=== PATIENT | female | born 1970 | race Caucasian/White ===

== ENCOUNTER 2017-09-11 08:33 | Observation (INO) | payer MEDICAID ==
[2017-09-11] MEDS ORDERED: NITROGLYCERIN OINT 1 INCH/GM PACKET TOPICAL STA (09:08)
[2017-09-11] MEDS ORDERED: ASPIRIN 81 MG PO STA (09:08)
--- NOTE | 2017-09-11 09:24 | ED ---
General Adult HPI - General Chief complaint: Chest Pain Stated complaint: chest pain Time Seen by Provider: 09/11/17 08:41 Source: patient, RN notes reviewed Mode of arrival: wheelchair Limitations: no limitations - History of Present Illness Initial comments: Patient is a pleasant 46-year-old female presenting to the emergency department with chest discomfort. Patient had an onset around 3 AM that resolved with some Tums. Patient had return of symptoms this morning that were somewhat worse and resolved with nitroglycerin. Patient is near symptom-free at this time. Discomfort is described as pressure with some radiation towards the left arm. Patient earlier had some associated sweating and dyspnea. Second event was associated with some nausea. No leg pain or leg swelling. No cough or fever. - Related Data Home Medications Medication Instructions Recorded Confirmed LORazepam [Ativan] 1 mg PO DAILY PRN 06/08/14 09/11/17 Albuterol Inhaler [Ventolin Hfa 1 - 2 puff INHALATION RT-Q6H PRN 12/26/15 Inhaler] Nicotine Polacrilex [Quit 2] 2 mg PO Q4H PRN 01/25/16 09/11/17 Calcium Carbonate [Tums] 500 - 1,000 mg PO TID PRN 09/11/17 09/11/17 Nitroglycerin Sl Tabs [Nitrostat] 0.4 mg SUBLINGUAL Q5M PRN 09/11/17 09/11/17 Allergies Allergy/AdvReac Type Severity Reaction Status Date / Time oseltamivir phosphate Allergy Rash/Hives Verified 09/11/17 09:50 [From Tamiflu] peanut Allergy Rash/Hives Verified 09/11/17 09:50 Sulfa (Sulfonamide Allergy Rash/Hives Verified 09/11/17 09:50 Antibiotics) Review of Systems ROS Statement: Those systems with pertinent positive or pertinent negative responses have been documented in the HPI. ROS Other: All systems not noted in ROS Statement are negative. Constitutional: Denies: fever Eyes: Denies: eye pain ENT: Denies: ear pain Respiratory: Denies: cough Cardiovascular: Reports: chest pain Endocrine: Denies: fatigue Gastrointestinal: Denies: abdominal pain Genitourinary: Denies: dysuria Musculoskeletal: Denies: back pain Skin: Denies: rash Neurological: Denies: weakness Past Medical History Past Medical History: GERD/Reflux, Pneumonia Additional Past Medical History / Comment(s): scoliosis, hospitalized for pneumonia-klebsiella end of Sept., mitral valve regurgitation History of Any Multi-Drug Resistant Organisms: None Reported Past Surgical History: Adenoidectomy, Tonsillectomy, Tubal Ligation, Uterine Ablation Additional Past Surgical History / Comment(s): oral Past Anesthesia/Blood Transfusion Reactions: No Reported Reaction Past Psychological History: Anxiety Smoking Status: Former smoker Past Alcohol Use History: Occasional Past Drug Use History: None Reported - Past Family History Mother Family Medical History: Congestive Heart Failure (CHF), Diabetes Mellitus, Hypertension Father Family Medical History: Cancer, Diabetes Mellitus Additional Family Medical History / Comment(s): KIDNEY CANCER. General Exam Limitations: no limitations General appearance: alert, in no apparent distress Head exam: Present: atraumatic Eye exam: Present: normal appearance, PERRL ENT exam: Present: normal oropharynx Neck exam: Present: normal inspection Respiratory exam: Present: normal lung sounds bilaterally Cardiovascular Exam: Present: regular rate, normal rhythm Expanded Peripheral pulses: 2+: Radial (R), Radial (L), Posterior Tibialis (R), Posterior Tibialis (L) GI/Abdominal exam: Present: soft. Absent: tenderness Extremities exam: Present: normal inspection. Absent: pedal edema, calf tenderness Neurological exam: Present: alert Psychiatric exam: Present: normal affect, normal mood Skin exam: Present: normal color Course Vital Signs 09/11/17 09/11/17 08:34 10:12 Temperature 98 F Pulse Rate 110 H 85 Respiratory 17 16 Rate Blood Pressure 156/88 129/77 O2 Sat by Pulse 97 98 Oximetry EKG Findings - EKG Comments: EKG Findings:: Normal sinus rhythm 82. [place] 150. QRS 88. QT 376. QTc 439. Normal axis. Normal QRS. No acute ST change. Medical Decision Making - Medical Decision Making Patient reevaluated and resting comfortably in bed. Patient is updated on results and plan. Case was discussed in detail with Dr. Varma, who will admit for Dr. Kessler. - Lab Data Result diagrams: 09/11/17 09:20 09/11/17 09:20 Lab Results 09/11/17 09/11/17 09/11/17 Range/Units 09:20 09:20 09:20 WBC 5.1 (3.8-10.6) k/uL RBC 4.78 (3.80-5.40) m/uL Hgb 14.6 (11.4-16.0) gm/dL Hct 42.9 (34.0-46.0) % MCV 89.7 (80.0-100.0) fL MCH 30.6 (25.0-35.0) pg MCHC 34.1 (31.0-37.0) g/dL RDW 13.4 (11.5-15.5) % Plt Count 330 (150-450) k/uL Neutrophils % 67 % Lymphocytes % 22 % Monocytes % 6 % Eosinophils % 2 % Basophils % 1 % Neutrophils # 3.5 (1.3-7.7) k/uL Lymphocytes # 1.1 (1.0-4.8) k/uL Monocytes # 0.3 (0-1.0) k/uL Eosinophils # 0.1 (0-0.7) k/uL Basophils # 0.0 (0-0.2) k/uL PT (9.0-12.0) sec INR (<1.2) APTT (22.0-30.0) sec D-Dimer (<0.60) mg/L FEU Sodium 141 (137-145) mmol/L Potassium 4.2 (3.5-5.1) mmol/L Chloride 105 (98-107) mmol/L Carbon Dioxide 25 (22-30) mmol/L Anion Gap 11 mmol/L BUN 12 (7-17) mg/dL Creatinine 0.69 (0.52-1.04) mg/dL Est GFR (MDRD) Af Amer >60 (>60 ml/min/1.73 sqM) Est GFR (MDRD) Non-Af >60 (>60 ml/min/1.73 sqM) Glucose 110 H (74-99) mg/dL Calcium 9.6 (8.4-10.2) mg/dL Magnesium 2.0 (1.6-2.3) mg/dL Total Bilirubin 0.4 (0.2-1.3) mg/dL AST 20 (14-36) U/L ALT 40 (9-52) U/L Alkaline Phosphatase 58 (38-126) U/L Total Creatine Kinase 37 (30-135) U/L CK-MB (CK-2) 0.3 (0.0-2.4) ng/mL CK-MB (CK-2) Rel Index 0.8 Troponin I <0.012 (0.000-0.034) ng/mL Total Protein 6.7 (6.3-8.2) g/dL Albumin 4.2 (3.5-5.0) g/dL Amylase <30 L (30-110) U/L Lipase 59 (23-300) U/L 09/11/17 Range/Units 09:20 WBC (3.8-10.6) k/uL RBC (3.80-5.40) m/uL Hgb (11.4-16.0) gm/dL Hct (34.0-46.0) % MCV (80.0-100.0) fL MCH (25.0-35.0) pg MCHC (31.0-37.0) g/dL RDW (11.5-15.5) % Plt Count (150-450) k/uL Neutrophils % % Lymphocytes % % Monocytes % % Eosinophils % % Basophils % % Neutrophils # (1.3-7.7) k/uL Lymphocytes # (1.0-4.8) k/uL Monocytes # (0-1.0) k/uL Eosinophils # (0-0.7) k/uL Basophils # (0-0.2) k/uL PT 10.8 (9.0-12.0) sec INR 1.1 (<1.2) APTT 24.0 (22.0-30.0) sec D-Dimer 0.40 (<0.60) mg/L FEU Sodium (137-145) mmol/L Potassium (3.5-5.1) mmol/L Chloride (98-107) mmol/L Carbon Dioxide (22-30) mmol/L Anion Gap mmol/L BUN (7-17) mg/dL Creatinine (0.52-1.04) mg/dL Est GFR (MDRD) Af Amer (>60 ml/min/1.73 sqM) Est GFR (MDRD) Non-Af (>60 ml/min/1.73 sqM) Glucose (74-99) mg/dL Calcium (8.4-10.2) mg/dL Magnesium (1.6-2.3) mg/dL Total Bilirubin (0.2-1.3) mg/dL AST (14-36) U/L ALT (9-52) U/L Alkaline Phosphatase (38-126) U/L Total Creatine Kinase (30-135) U/L CK-MB (CK-2) (0.0-2.4) ng/mL CK-MB (CK-2) Rel Index Troponin I (0.000-0.034) ng/mL Total Protein (6.3-8.2) g/dL Albumin (3.5-5.0) g/dL Amylase (30-110) U/L Lipase (23-300) U/L - Radiology Data Radiology results: image reviewed (Chest x-ray shows no acute cardiopulmonary process.) Disposition Clinical Impression: Unstable angina pectoris Disposition: ADMITTED IP TO THIS HOSP Referrals: Raheem Kessler MD [Primary Care Provider] - 1-2 days Decision Time: 11:47
--- NOTE | 2017-09-11 09:54 | XR ---
EXAMINATION TYPE: XR chest 2V DATE OF EXAM: 09/11/2017 COMPARISON: 09/04/2016 HISTORY: 46-year-old female with chest pain TECHNIQUE: AP and lateral views FINDINGS: The cardiomediastinal silhouette, aorta, and pulmonary vasculature are within normal limits. Lungs an d pleural spaces are clear. IMPRESSION: No acute cardiopulmonary process.
[2017-09-11 10:10] LABS: Basophils % (A) 1 %; CHCM 35.9; Eosinophils # (A) 0.1 k/uL (0-0.7); Eosinophils % (A) 2 %; HCT 42.9 % (34.0-46.0); HGB 14.6 gm/dL (11.4-16.0); Luc # (Auto) 0.11; Luc % (Auto) 2; Lymphocytes # (A) 1.1 k/uL (1.0-4.8); Lymphocytes % (A) 22 %; MCH 30.6 pg (25.0-35.0); MCHC 34.1 g/dL (31.0-37.0); MCV 89.7 fL (80.0-100.0); Mean Platelet Volume 7.5; Monocytes # (A) 0.3 k/uL (0-1.0); Monocytes % (A) 6 %; Neutrophils # (A) 3.5 k/uL (1.3-7.7); Neutrophils % (A) 67 %; RBC 4.78 m/uL (3.80-5.40); RDW 13.4 % (11.5-15.5); WBC 5.1 k/uL (3.8-10.6); WBC (Perox) 4.87
[2017-09-11 10:20] LABS: ALT 40 U/L (9-52); AST 20 U/L (14-36); Alkaline Phosphatase 58 U/L (38-126); Amylase <30 U/L (30-110); Anion Gap 11 mmol/L; Blood Urea Nitrogen 12 mg/dL (7-17); Calcium 9.6 mg/dL (8.4-10.2); Carbon Dioxide 25 mmol/L (22-30); Chloride 105 mmol/L (98-107); Glucose 110 mg/dL (74-99); Non-African American GFR(MDRD) >60 (>60 ml/min/1.73 sqM); Potassium 4.2 mmol/L (3.5-5.1); Sodium 141 mmol/L (137-145); Total Bilirubin 0.4 mg/dL (0.2-1.3); Total Protein 6.7 g/dL (6.3-8.2)
[2017-09-11 10:22] LABS: INR 1.1 (<1.2); Prothrombin Time 10.8 sec (9.0-12.0)
[2017-09-11 10:52] LABS: Creatine Kinase 37 U/L (30-135)
[2017-09-11 11:03] LABS: Creatine Kinase MB 0.3 ng/mL (0.0-2.4); Troponin I <0.012 ng/mL (0.000-0.034)
[2017-09-11] MEDS ORDERED: HEPARIN SODIUM,PORCINE 5,000 UNIT/ML 1 ML VIAL IV ONE (11:47)
[2017-09-11] MEDS ORDERED: NITROGLYCERIN SL TABS 0.4 MG TAB SUBLINGUAL PRN (11:47)
[2017-09-11] MEDS ORDERED: HEPARIN SODIUM,PORCINE 5,000 UNIT/ML 1 ML VIAL IV PRN (11:47)
[2017-09-11] MEDS ORDERED: HEPARIN SODIUM,PORCINE/D5W PMX 25,000 UNIT in DEXTROSE/WATER 1 500ML.BAG IV SCH (12:00)
--- NOTE | 2017-09-11 13:22 | P.CRDCN ---
History of Present Illness Consult date: 09/11/17 History of present illness: This is a 46-year-old female with past medical history significant for gastroesophageal reflux disease and anxiety. She is also a former smoker. She states she quit approximately 3 years ago. He presents to the hospital with an episode of chest pain that started at 3 AM. She states this discomfort woke her up out of sleep and it felt like a tight band was wrapped around her upper chest. She was extremely diaphoretic and mildly short of breath. She took Tums drink less water and the pain subsided. When she woke up in the morning the pain came back again and this time she was unable to get it to go away. The second occurrence she also had diaphoresis and shortness of breath with some mild nausea. She states the second pain seemed more localized to the midsternal region. 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 Her cardiac risk factors include former smoker and family history. Symptoms are completely resolved. She states yesterday after eating she had what she describes as a "gallbladder attack" with pain in the right upper quadrant that radiated up into the right shoulder. She has had these intermittently in the past. EKG reveals sinus mechanism with no acute ST or T-wave abnormalities. Hemoglobin 14.6, d-dimer 0.4, potassium 4.2, magnesium 2.0, BUN 12, creatinine 0.69 and cardiac enzymes negative 1. Blood pressure 131/66 with a heart rate of 78. Review of Systems CONSTITUTIONAL: Denies fever. Denies chills. EYES: Denies blurred vision. Denies vision changes. Denies eye pain. EARS, NOSE, MOUTH & THROAT: Denies headache. Denies sore throat. Denies ear pain. CARDIOVASCULAR: Complains of chest pain with shortness of breath and palpitations. Denies orthopnea. Denies PND. RESPIRATORY: Denies cough. GASTROINTESTINAL: Denies abdominal pain. Denies diarrhea. Denies constipation. Complains of nausea. Denies vomitng. MUSCULOSKELETAL: Denies myalgias. INTEGUMENTARY: Denies pruitis. Denies rash. NEUROLOGIC: Denies numbness. Denies tingling. Denies weakness. PSYCHIATRIC: Denies anxiety. Denies depression. ENDOCRINE: Denies fatigue. Denies weight change. Denies polydipsia. Denies polyurina. GENITOURINARY: Denies burning, hematuria or urgency with micturation. HEMATOLOGIC: Denies history of anemia. Denies bleeding. Past Medical History Past Medical History: GERD/Reflux, Pneumonia Additional Past Medical History / Comment(s): scoliosis, hospitalized for pneumonia-klebsiella end of Jul., mitral valve regurgitation History of Any Multi-Drug Resistant Organisms: None Reported Past Surgical History: Adenoidectomy, Tonsillectomy, Tubal Ligation, Uterine Ablation Additional Past Surgical History / Comment(s): oral Past Anesthesia/Blood Transfusion Reactions: No Reported Reaction Past Psychological History: Anxiety Smoking Status: Former smoker Past Alcohol Use History: Occasional Past Drug Use History: None Reported - Past Family History Mother Family Medical History: Congestive Heart Failure (CHF), Diabetes Mellitus, Hypertension Father Family Medical History: Cancer, Diabetes Mellitus Additional Family Medical History / Comment(s): KIDNEY CANCER. Medications and Allergies Home Medications Medication Instructions Recorded Confirmed Type LORazepam [Ativan] 1 mg PO DAILY PRN 06/08/14 09/11/17 History Albuterol Inhaler [Ventolin Hfa 1 - 2 puff INHALATION RT-Q6H PRN 12/26/15 History Inhaler] Nicotine Polacrilex [Quit 2] 2 mg PO Q4H PRN 01/25/16 09/11/17 History Calcium Carbonate [Tums] 500 - 1,000 mg PO TID PRN 09/11/17 09/11/17 History Nitroglycerin Sl Tabs [Nitrostat] 0.4 mg SUBLINGUAL Q5M PRN 09/11/17 09/11/17 History Allergies Allergy/AdvReac Type Severity Reaction Status Date / Time oseltamivir phosphate Allergy Rash/Hives Verified 09/11/17 09:50 [From Tamiflu] peanut Allergy Rash/Hives Verified 09/11/17 09:50 Sulfa (Sulfonamide Allergy Rash/Hives Verified 09/11/17 09:50 Antibiotics) Physical Exam Vitals: Vital Signs Temp Pulse Pulse Resp BP BP Pulse Ox 09/11/17 13:12 98.6 F 78 18 131/66 97 09/11/17 12:24 97.9 F 09/11/17 12:10 63 18 121/67 98 09/11/17 10:12 85 16 129/77 98 09/11/17 09:20 72 18 133/68 99 09/11/17 08:34 98 F 110 H 17 156/88 97 Intake and Output 09/10/17 09/11/17 09/11/17 22:59 06:59 14:59 Intake Total 10 Balance 10 Intake: Amount of Fluid Infused ( 10 ml) Other: Weight 86.8 kg Patient Weight 09/12/17 06:59 Weight 86.8 kg GENERAL: This is a 46-year-old female in no apparent distress at the time of my examination. HEENT: Head is atraumatic, normocephalic. Pupils are equal, round. Sclerae anicteric. Conjunctivae are clear. Mucous membranes of the mouth are moist. Neck is supple. There is no jugular venous distention. No carotid bruit is heard. LUNGS: Clear to auscultation no wheezes, rales or rhonchi. No chest wall tenderness is noted on palpation or with deep breathing. HEART: Regular rate and rhythm without murmurs, rubs or gallops. S1 and S2 heard. ABDOMEN: Soft, nontender. Bowel sounds are heard. No organomegaly noted. EXTREMITIES: 2+ peripheral pulses with no evidence of peripheral edema and no calf tenderness noted. NEUROLOGIC: Patient is awake, alert and oriented x3. Results 09/11/17 09:20 09/11/17 09:20 Cardiac Enzymes 09/11/17 09/11/17 Range/Units 09:20 09:20 AST 20 (14-36) U/L CK-MB (CK-2) 0.3 (0.0-2.4) ng/mL Troponin I <0.012 (0.000-0.034) ng/mL Coagulation 09/11/17 Range/Units 09:20 PT 10.8 (9.0-12.0) sec APTT 24.0 (22.0-30.0) sec CBC 09/11/17 Range/Units 09:20 WBC 5.1 (3.8-10.6) k/uL RBC 4.78 (3.80-5.40) m/uL Hgb 14.6 (11.4-16.0) gm/dL Hct 42.9 (34.0-46.0) % Plt Count 330 (150-450) k/uL Comprehensive Metabolic Panel 09/11/17 Range/Units 09:20 Sodium 141 (137-145) mmol/L Potassium 4.2 (3.5-5.1) mmol/L Chloride 105 (98-107) mmol/L Carbon Dioxide 25 (22-30) mmol/L BUN 12 (7-17) mg/dL Creatinine 0.69 (0.52-1.04) mg/dL Glucose 110 H (74-99) mg/dL Calcium 9.6 (8.4-10.2) mg/dL AST 20 (14-36) U/L ALT 40 (9-52) U/L Alkaline Phosphatase 58 (38-126) U/L Total Protein 6.7 (6.3-8.2) g/dL Albumin 4.2 (3.5-5.0) g/dL Current Medications Generic Name Dose Route Start Last Admin Trade Name Freq PRN Reason Stop Dose Admin Aspirin 325 mg 09/12/17 09:00 Aspirin PO DAILY [facility] Heparin Sodium (Porcine) 0 unit 09/11/17 11:47 Heparin IV Q6HR PRN Low PTT Protocol Heparin Sodium/Dextrose 25,000 500 mls @ 20.01 mls/hr 09/11/17 12:00 12:06 unit/ IV Solution IV 11.78 units/kg/hr .Q24H HETAL 20 mls/hr Protocol Administration 11.8 UNITS/KG/HR Nitroglycerin 1 inch 09/11/17 12:00 Nitro-Bid Oint TOPICAL Q6HR [facility] Nitroglycerin 0.4 mg 09/11/17 11:47 Nitrostat SUBLINGUAL Q5M PRN Chest Pain Sodium Chloride 10 ml 09/11/17 21:00 Saline Flush IV BID [facility] Intake and Output 09/10/17 09/11/17 09/11/17 22:59 06:59 14:59 Intake Total 10 Balance 10 Intake: Amount of Fluid Infused ( 10 ml) Other: Weight 86.8 kg Patient Weight 09/12/17 06:59 Weight 86.8 kg 09/11/17 09:20 09/11/17 09:20 Assessment and Plan Plan: ASSESSMENT 1. Chest pain, atypical PLAN Continue to obtain serial cardiac enzymes and EKGs to rule out an acute coronary event. Once the second set of cardiac enzymes are back and if they're negative heparin and nitro bid can be discontinued We will obtain 2-D echo and Doppler study to assess cardiac structure and function. The above impression and plan of care have been discussed and directed by the signing physician. Teagan Borja, nurse practitioner, acting as scribe for signing physician.
[2017-09-11 14:08] VITALS: BMI 30.9
--- NOTE | 2017-09-11 15:16 | P.HPIM ---
History of Present Illness H&P Date: 09/11/17 Chief Complaint: Chest pain 46-year-old female with known history of GERD, anxiety and previous history of Klebsiella pneumonia came to ER with complaints of chest pain midsternal started around 3 AM and woke up from sleep. Patient felt squeezing chest pain and was short of breath and extremely diaphoretic. Patient took sublingual nitro at home and also took some Tums and water which seems to relieve her pain. Patient has appointment for physicals and is on her way to her PCPs office. Patient was fasting for the test. Patient felt again with chest pain along with diaphoresis and all her PCP who recommended her to go to emergency room for further evaluation. Patient denied any place history of coronary artery disease. Patient does have history of smoking quit 3 years ago. Patient does drink occasionally. Patient does have family history of heart problems in her mother after he is 65. Patient says that after eating meat loaf she was having some abdominal discomfort since yesterday. Patient denied any right upper quadrant pain. No fever no chills. No recent travel or sick contacts at home. EKG showed normal sinus rhythm with no ST-T wave changes D-dimer is not elevated. Troponin 1 negative. Blood pressure is normal.. Review of Systems Constitutional: Patient denies any fever or chills . No generalized weakness or weight loss. Abdomen: Patient denied nausea vomiting and diarrhea and abdominal pain. Cardiovascular: Patient does have chest pain . No short of breath no palpitations. No orthopnea no PND. Patient did have diaphoresis Respiratory: patient denied any cough is from production. No shortness of breath Neurologic: Patient denied any numbness or tingling headache. Musculoskeletal: Patient denies any complaints of joint swelling or deformity. Skin: Negative Psychiatric: Anxious Endocrine: No heat or cold intolerance. No recent weight gain. Genitourinary: No dysuria or hematuria. All other 14 point ROS negative except the above Past Medical History Past Medical History: GERD/Reflux, Pneumonia Additional Past Medical History / Comment(s): scoliosis, hospitalized for pneumonia-klebsiella end of Jul., mitral valve regurgitation History of Any Multi-Drug Resistant Organisms: None Reported Past Surgical History: Adenoidectomy, Tonsillectomy, Tubal Ligation, Uterine Ablation Additional Past Surgical History / Comment(s): oral Past Anesthesia/Blood Transfusion Reactions: No Reported Reaction Additional Past Anesthesia/Blood Transfusion Reaction / Comment(s): no blood transfusions Past Psychological History: Anxiety Smoking Status: Former smoker Past Alcohol Use History: Occasional Past Drug Use History: None Reported - Past Family History Mother Family Medical History: Congestive Heart Failure (CHF), Diabetes Mellitus, Hypertension Father Family Medical History: Cancer, Diabetes Mellitus Additional Family Medical History / Comment(s): KIDNEY CANCER. Medications and Allergies Home Medications Medication Instructions Recorded Confirmed Type LORazepam [Ativan] 1 mg PO DAILY PRN 06/08/14 09/11/17 History Albuterol Inhaler [Ventolin Hfa 1 - 2 puff INHALATION RT-Q6H PRN 12/26/15 History Inhaler] Nicotine Polacrilex [Quit 2] 2 mg PO Q4H PRN 01/25/16 09/11/17 History Calcium Carbonate [Tums] 500 - 1,000 mg PO TID PRN 09/11/17 09/11/17 History Nitroglycerin Sl Tabs [Nitrostat] 0.4 mg SUBLINGUAL Q5M PRN 09/11/17 09/11/17 History Allergies Allergy/AdvReac Type Severity Reaction Status Date / Time oseltamivir phosphate Allergy Rash/Hives Verified 09/11/17 09:50 [From Tamiflu] peanut Allergy Rash/Hives Verified 09/11/17 09:50 Sulfa (Sulfonamide Allergy Rash/Hives Verified 09/11/17 09:50 Antibiotics) Physical Exam Vitals: Vital Signs Temp Pulse Pulse Resp BP BP Pulse Ox 09/11/17 13:12 98.6 F 78 18 131/66 97 09/11/17 13:00 78 18 09/11/17 12:24 97.9 F 09/11/17 12:10 63 18 121/67 98 09/11/17 10:12 85 16 129/77 98 09/11/17 09:20 72 18 133/68 99 09/11/17 08:34 98 F 110 H 17 156/88 97 Intake and Output 09/10/17 09/11/17 09/11/17 22:59 06:59 14:59 Intake Total 210 Balance 210 Intake: Amount of Fluid Infused ( 10 ml) Oral 200 Other: Voiding Method Toilet Weight 86.8 kg Patient Weight 09/12/17 06:59 Weight 86.8 kg PHYSICAL EXAMINATION: Patient is lying in the bed comfortably, no acute distress, awake alert and oriented.. HEENT: Normocephalic. Neck is supple. Pupils reactive. Nostrils clear. Oral cavity is moist. Ears reveal no drainage. Neck reveals no JVD, carotid bruits, or thyromegaly. CHEST EXAMINATION: Trachea is central. Symmetrical expansion. Lung manriquez clear to auscultation and percussion. CARDIAC: Normal S1, S2 with no gallops. No murmurs ABDOMEN: Soft. Bowel sounds normal. No organomegaly. No abdominal bruits. Extremities: reveal no edema. No clubbing or cyanosis Neurologically awake, alert, oriented x3 with well-coordinated movements. No focal deficits noted Skin: No rash or skin lesions. Psychiatric: Operative. Nonsuicidal Musculoskeletal: No joint swelling or deformity. Normal range of motion. Results CBC & Chem 7: 09/11/17 09:20 09/11/17 09:20 Labs: Abnormal Lab Results - Last 24 Hours (Table) 09/11/17 Range/Units 09:20 Glucose 110 H (74-99) mg/dL Amylase <30 L (30-110) U/L Thrombosis Risk Factor Assmnt - Choose All That Apply Any of the Below Risk Factors Present?: Yes Each Factor Represents 1 point: Age 41-60 years, Obesity (BMI >25) Other Risk Factors: No Other congenital or acquired thrombophilia - If yes, enter type in comment: No Thrombosis Risk Factor Assessment Total Risk Factor Score: 2 Thrombosis Risk Factor Assessment Level: Low Risk Assessment and Plan Plan: #1 atypical chest pain. Most likely GERD related. We will rule out ACS. #2 GERD history #3 anxiety #4 history of Klebsiella pneumonia Plan: Patient be continued on telemetry monitoring. Initial EKG and troponin negative will follow up serial troponins. 2-D echo was ordered. Amylase, lipase is not elevated. Living is within normal limits. Unlikely gallbladder related. Will follow closely. Cardiology is on board. Further recommendations based on the clinical course.
[2017-09-11] MEDS: NITROGLYCERIN OINT 1 INCH/GM PACKET TOPICAL SCH ×2 (16:08→18:48)
[2017-09-11 16:21] LABS: Creatine Kinase 31 U/L (30-135)
[2017-09-11 16:32] LABS: Creatine Kinase MB <0.2 ng/mL (0.0-2.4); Troponin I <0.012 ng/mL (0.000-0.034)
[2017-09-11] MEDS ORDERED: ACETAMINOPHEN TAB 325 MG TAB PO PRN (17:05)
--- NOTE | 2017-09-11 19:39 | ECHOF ---
Referral Reason:chest pain MEASUREMENTS -------- HEIGHT: 165.1 cm WEIGHT: 84.8 kg BP: 121/67 IVSd: 1.0 cm (0.6 - 1.1) LVIDd: 4.2 cm (3.9 - 5.3) LVPWd: 1.1 cm (0.6 - 1.1) IVSs: 1.2 cm LVIDs: 3.2 cm LVPWs: 1.2 cm LA Diam: 3.2 cm (2.7 - 3.8) LAESV Index (A-L): 24.49 ml/m Ao Diam: 2.6 cm (2.0 - 3.7) AV Cusp: 1.8 cm (1.5 - 2.6) LA Diam: 3.3 cm (2.7 - 3.8) MV EXCURSION: 16.399 mm (> 18.000) MV EF SLOPE: 86 mm/s (70 - 150) EPSS: 0.4 cm MV E Liam: 0.50 m/s MV DecT: 204 ms MV A Liam: 0.62 m/s MV E/A Ratio: 0.80 RAP: 5.00 mmHg RVSP: 10.65 mmHg FINDINGS -------- Sinus rhythm. This was a technically good study. LV size, wall thickness and systolic function are normal, with an EF greater than 55%. The left ventricular size is normal. Overall left ventricular systolic function is normal with, an EF between 55 - 60 %. The right ventricle is normal in size. Normal LA size by volume 22+/-6 ml/m2. The right atrial size is normal. The aortic valve is trileaflet, and appears structurally normal. No aortic stenosis or regurgitation. Mild mitral regurgitation is present. Mild tricuspid regurgitation present. There is no evidence of pulmonary hypertension. The right ventricular systolic pressure, as measured by Doppler, is 10.65mmHg. There is no pulmonic regurgitation present. The aortic root size is normal. There is no pericardial effusion. CONCLUSIONS -------- 1. LV size, wall thickness and systolic function are normal, with an EF greater than 55%. 2. The aortic root size is normal. 3. There is no pericardial effusion. 4. The left ventricular size is normal. 5. Overall left ventricular systolic function is normal with, an EF between 55 - 60 %. 6. The aortic valve is trileaflet, and appears structurally normal. No aortic stenosis or regurgitation. 7. Mild mitral regurgitation is present. 8. Mild tricuspid regurgitation present. 9. There is no evidence of pulmonary hypertension. 10. The right ventricular systolic pressure, as measured by Doppler, is 10.65mmHg. 11. There is no pulmonic regurgitation present. DIELECTRIC TESTER: Anna Rodney RDCS
[2017-09-11] MEDS: LORazepam 1 MG TAB PO PRN (21:24)
[2017-09-11 22:07] LABS: Creatine Kinase 33 U/L (30-135)
[2017-09-11 22:20] LABS: Creatine Kinase MB <0.2 ng/mL (0.0-2.4); Troponin I <0.012 ng/mL (0.000-0.034)
[2017-09-12 07:39] LABS: Mean Platelet Volume 6.6
[2017-09-12 07:53] LABS: Cholesterol 190 mg/dL (<200); HDL Cholesterol 51 mg/dL (40-60)
[2017-09-12 08:09] VITALS: TEMP 97.6
[2017-09-12] MEDS ORDERED: ASPIRIN 325 MG TAB PO SCH (09:00)
[2017-09-12] MEDS: LORazepam 1 MG TAB PO PRN (11:31)
[2017-09-12 13:00] VITALS: BP 140/77; PULSE 89; RESP 18
--- NOTE | 2017-09-12 13:18 | PN ---
PROGRESS NOTE This patient was admitted with symptoms of chest pain. Clinically the patient's chest pains are suggestive of atypical angina. Patient's EKGs and cardiac enzymes are normal. Echocardiogram was normal. Patient was reassured. Patient can be discharged home. We will schedule her for a stress echocardiographic study as an outpatient and patient is advised to have a followup with Dr. Jones in 2-3 weeks. MMDEB / AMADON: [id number] /
--- NOTE | 2017-09-12 15:03 | P.DS ---
Providers Date of admission: 09/11/17 11:47 Attending physician: Raheem Kessler Consults: 09/11/17 11:47 Consult Physician Urgent Consulting Provider: Joe English Consult Reason/Comments: ua Do you want consulting provider notified?: Yes Primary care physician: Raheem Kessler Hospital Course: 46-year-old very pleasant female was admitted for chest pain rule out acute acute coronary syndromes, patient most probably has gastroesophageal reflux disease because of which patient will be discharged on 14 days of Prilosec. PHYSICAL EXAMINATION: Patient is lying in the bed comfortably, no acute distress, awake alert and oriented.. HEENT: Normocephalic. Neck is supple. Pupils reactive. Nostrils clear. Oral cavity is moist. Ears reveal no drainage. Neck reveals no JVD, carotid bruits, or thyromegaly. CHEST EXAMINATION: Trachea is central. Symmetrical expansion. Lung manriquez clear to auscultation and percussion. CARDIAC: Normal S1, S2 with no gallops. No murmurs ABDOMEN: Soft. Bowel sounds normal. No organomegaly. No abdominal bruits. Extremities: reveal no edema. No clubbing or cyanosis Neurologically awake, alert, oriented x3 with well-coordinated movements. No focal deficits noted Skin: No rash or skin lesions. Psychiatric: Operative. Nonsuicidal Musculoskeletal: No joint swelling or deformity. Normal range of motion. #1 atypical chest pain. Most likely GERD related. #2 GERD history #3 anxiety Plan - Discharge Summary New Discharge Prescriptions: New Omeprazole [PriLOSEC] 40 mg PO AC-BRKFST #14 capsule. Continue LORazepam [Ativan] 1 mg PO DAILY PRN PRN Reason: Anxiety Albuterol Inhaler [Ventolin Hfa Inhaler] 1 - 2 puff INHALATION RT-Q6H PRN PRN Reason: Shortness Of Breath Nicotine Polacrilex [Quit 2] 2 mg PO Q4H PRN PRN Reason: CRAVINGS Nitroglycerin Sl Tabs [Nitrostat] 0.4 mg SUBLINGUAL Q5M PRN PRN Reason: Chest Pain Calcium Carbonate [Tums] 500 - 1,000 mg PO TID PRN PRN Reason: Indigestion Discharge Medication List LORazepam [Ativan] 1 mg PO DAILY PRN 06/08/14 [History] Albuterol Inhaler [Ventolin Hfa Inhaler] 1 - 2 puff INHALATION RT-Q6H PRN [History] Nicotine Polacrilex [Quit 2] 2 mg PO Q4H PRN 01/25/16 [History] Calcium Carbonate [Tums] 500 - 1,000 mg PO TID PRN 09/11/17 [History] Nitroglycerin Sl Tabs [Nitrostat] 0.4 mg SUBLINGUAL Q5M PRN 09/11/17 [History] Omeprazole [PriLOSEC] 40 mg PO AC-BRKFST #14 capsule. 09/12/17 [Rx] Follow up Appointment(s)/Referral(s): Raheem Kessler MD [Primary Care Provider] - 1-2 days Rubén Jones MD [STAFF PHYSICIAN] - 1 Week (Left Pt information with [facility], they will call Pt at home to schedule follow up appointment. ) Patient Instructions/Handouts: Chest Pain (DC) Discharge Disposition: HOME SELF-CARE
== END 2017-09-12 15:13 | disposition home or self-care (01) ==
LOC: EC 08:33 → 3SUR 11:47 → 3OBS 12:15
PROVIDERS: ADMIT Family Medicine; ATTEND Family Medicine
DX: R07.89 Other chest pain (principal); K21.9 Gastro-esophageal reflux disease without esophagitis; F41.9 Anxiety disorder, unspecified; R11.0 Nausea; R61 Generalized hyperhidrosis; R06.02 Shortness of breath; R10.11 Right upper quadrant pain; R10.9 Unspecified abdominal pain; Z88.2 Allergy status to sulfonamides; Z88.8 Allergy status to other drugs, medicaments and biological substances; Z91.010 Allergy to peanuts; Z87.891 Personal history of nicotine dependence; Z87.01 Personal history of pneumonia (recurrent); Z83.3 Family history of diabetes mellitus; Z82.49 Family history of ischemic heart disease and other diseases of the circulatory system; Z80.51 Family history of malignant neoplasm of kidney; E66.9 Obesity, unspecified; Z68.30 Body mass index [BMI] 30.0-30.9, adult
CPT/HCPCS: 99285; 96365; 96376; 96366; 36415; 93005; 93306; 85379; 80061; 80053; 82150; 82550; 82553; 83690; 83735; 84484; 85025; 85049; 85610; 85730; 71020; G0378 ×2; J1644 ×2

== ENCOUNTER → 2017-09-16 | Outpatient (CLI) | payer MEDICAID ==
--- NOTE | 2017-09-16 10:04 | US ---
EXAMINATION TYPE: US abdomen complete DATE OF EXAM: 09/16/2017 COMPARISON: US 10/2014 CLINICAL HISTORY: R06.02 dyspnea. Epigastric pain, nausea EXAM MEASUREMENTS: Liver Length: 13.2 cm Gallbladder Wall: 0.2 cm CBD: 0.5 cm Spleen: 13.6 cm Right Kidney: 10.2 x 4.4 x 4.6 cm Left Kidney: 10.3 x 4.2 x 5.1 cm Pancreas: Obscured by bowel gas, visualized portions show no abnormality Liver: wnl Gallbladder: wnl Evidence for sonographic Ruiz's sign: Yes CBD: wnl as visualized Spleen: Approaching criteria for splenomegaly. Right Kidney: No hydronephrosis or masses seen Left Kidney: No hydronephrosis or masses seen Upper IVC: wnl Abd Aorta: wnl The liver is homogenous. The intrahepatic portion of the IVC and proximal abdominal aorta are within normal limits. There is no evidence of cholelithiasis. Common bile duct is unremarkable. The visu alized portions of the pancreas are homogenous. The spleen is unremarkable. Kidneys are symmetric a nd free of hydronephrosis. No renal lesions are seen. IMPRESSION: 1. Prominent size of the spleen approaching criteria for splenomegaly. 2. No sonographic evidence of acute cholecystitis or cholelithiasis. 3. Partial obscuration of the pancreas by overlying bowel gas.
--- NOTE | 2017-09-16 14:13 | ECHOS ---
STRESS ECHOCARDIOGRAM DATE OF SERVICE: 09/16/2017 INDICATIONS: Chest pain. MEDICATIONS:: Ativan BASELINE HEART RATE: 92 BASELINE BLOOD PRESSURE: 135/68 MAXIMUM HEART RATE: 153 MAXIMUM BLOOD PRESSURE: 190/72 85% MPHR: 146 100% MPHR: 172 METS: 10.3 MAXIMUM STAGE REACHED: 3 TOTAL EXERCISE TIME: 9:00 CLINICAL INFORMATION: STRESS DATA: Pretesting physical examination showed a heart rate of 92, pressure is 135/68 mmHg. Baseline EKG showed sinus mechanism. The patient exercised on the treadmill according to Jayden protocol for a total of 9 minutes and achieved 10.3 METs with max heart rate was 153 beats per minute which is about 89% of maximum predicted heart rate. Maximum blood pressure was 190/72 mmHg. Clinically, the patient did not have a symptoms of chest pain or discomfort. The EKG showed about 0.5 mm to [address]-segment changes in response to exercise and resolved on recovery. ECHOCARDIOGRAM IMAGES: On echocardiogram images from parasternal long axis view, parasternal short axis view, apical 4 chamber and apical 2 chamber view were obtained as the baseline images, at the peak of the heart rate as well as on recovery. The echocardiogram images showed good augmentation in the left ventricular systolic function without any evidence of wall motion abnormalities consistent with ischemia. CONCLUSION: 1. Good exercise capacity. 2. Mild EKG changes in response to exercise. Did not meet the criteria for ischemia. 3. Normal echocardiogram in response to exercise. MMTAMRAL / AMADON: [id number] /
== END ==
LOC: RADNMMAIN 09:07
PROVIDERS: ATTEND Family Medicine
DX: R06.02 Shortness of breath (principal); R16.1 Splenomegaly, not elsewhere classified
CPT/HCPCS: 76700; 93017; 93350

== ENCOUNTER → 2017-12-14 | Outpatient (CLI) | payer MEDICAID ==
--- NOTE | 2017-12-15 09:18 | MM ---
Reason for exam: screening (asymptomatic). Last mammogram was performed 1 year and 1 month ago. History: Took hormonal contraceptives for 3 months beginning at age 28. Physical Findings: A clinical breast exam by your physician is recommended on an annual basis and results should be correlated with mammographic findings. MG 3D Screening Mammo W/Cad Bilateral CC and MLO view(s) were taken. Prior study comparison: November 07, 2016, bilateral MG 3d screening mammo w/cad. March 14, 2015, bilateral MG screening mammo w CAD. The breast tissue is heterogeneously dense. This may lower the sensitivity of mammography. There is no discrete abnormality. No significant changes when compared with prior studies. ASSESSMENT: Negative, BI-RAD 1 RECOMMENDATION: Routine screening mammogram of both breasts in 1 year.
== END | disposition home or self-care (01) ==
LOC: RADMAMWWP 06:58
PROVIDERS: ATTEND Family Medicine
DX: Z12.31 Encounter for screening mammogram for malignant neoplasm of breast (principal)
CPT/HCPCS: 77063; 77067

== ENCOUNTER → 2017-12-21 | Outpatient (CLI) | payer MEDICAID ==
--- NOTE | 2017-12-21 08:01 | XR ---
EXAMINATION TYPE: XR chest 2V DATE OF EXAM: 12/21/2017 COMPARISON: 09/11/17 HISTORY: Chest pain TECHNIQUE: Frontal and lateral views of the chest are obtained. FINDINGS: There is no focal air space opacity. No evidence for pneumothorax. No pleural effusion. The cardiac silhouette size is within normal limits. The osseous structures are grossly intact. IMPRESSION: 1. No acute cardiopulmonary process.
== END | disposition home or self-care (01) ==
LOC: LABMAIN 07:43
PROVIDERS: ATTEND Emergency Medicine
DX: R05 Cough (principal); R06.00 Dyspnea, unspecified
CPT/HCPCS: 71046

== ENCOUNTER 2018-05-24 08:28 | Observation (INO) | payer MEDICAID ==
[2018-05-24] MEDS ORDERED: KETOROLAC 30 MG/ML 1 ML VIAL IVP STA (09:39)
[2018-05-24] MEDS ORDERED: SODIUM CHLORIDE 0.9% 1,000 ML IV STA ×2 (09:39)
[2018-05-24 10:21] LABS: Basophils % (A) 1 %; Eosinophils # (A) 0.1 k/uL (0-0.7); Eosinophils % (A) 2 %; HCT 44.2 % (34.0-46.0); HGB 15.2 gm/dL (11.4-16.0); Lymphocytes # (A) 1.2 k/uL (1.0-4.8); Lymphocytes % (A) 20 %; MCH 30.4 pg (25.0-35.0); MCHC 34.3 g/dL (31.0-37.0); MCV 88.5 fL (80.0-100.0); Mean Platelet Volume 6.8; Monocytes # (A) 0.3 k/uL (0-1.0); Monocytes % (A) 5 %; Neutrophils # (A) 4.3 k/uL (1.3-7.7); Neutrophils % (A) 72 %; Platelet Count 300 k/uL (150-450); RDW 12.7 % (11.5-15.5)
[2018-05-24 10:29] LABS: Partial Thromboplastin Time 22.7 sec (22.0-30.0)
[2018-05-24 10:32] LABS: ALT 38 U/L (9-52); AST 22 U/L (14-36); Albumin 4.1 g/dL (3.5-5.0); Alkaline Phosphatase 40 U/L (38-126); Anion Gap 9 mmol/L; Blood Urea Nitrogen 13 mg/dL (7-17); Calcium 9.1 mg/dL (8.4-10.2); Carbon Dioxide 24 mmol/L (22-30); Chloride 108 mmol/L (98-107); Glucose 109 mg/dL (74-99); Magnesium 2.3 mg/dL (1.6-2.3); Potassium 4.5 mmol/L (3.5-5.1); Sodium 141 mmol/L (137-145); Total Bilirubin 0.4 mg/dL (0.2-1.3); Total Protein 6.3 g/dL (6.3-8.2)
--- NOTE | 2018-05-24 10:33 | XR ---
EXAMINATION TYPE: XR thoracic spine 2V DATE OF EXAM: 05/24/2018 COMPARISON: NONE HISTORY: Upper back pain TECHNIQUE: Three-view thoracic spine supplemented with a transthoracic swimmer's view. FINDINGS: There is a scoliosis present with a convexity to the right centered at approximately T8. Co mpensatory curvatures in the upper thoracic spine. There are 12 thoracic type vertebral bodies. The p edicles are intact. Disc heights are preserved. Vertebral body heights are preserved. IMPRESSION: 1. Mild scoliosis.
--- NOTE | 2018-05-24 10:38 | XR ---
EXAMINATION TYPE: XR cervical spine limited DATE OF EXAM: 05/24/2018 COMPARISON: NONE HISTORY: Chronic neck pain and upper back pain TECHNIQUE: Three-view cervical spine FINDINGS: Degenerative disc changes are present C5-6 C6-7. Small amount of posterior vertebral body s purring is present at C6-C7. Prevertebral space is normal. Vertebral body heights are preserved. Disc heights are otherwise preserved. Odontoid is some limitation with overlying occiput at the tip of th e dens. IMPRESSION: 1. Degenerative disc changes C5-6 C6-7.
--- NOTE | 2018-05-24 10:55 | XR ---
EXAMINATION TYPE: XR chest 2V DATE OF EXAM: 05/24/2018 COMPARISON: Prior chest 12/21/2017 HISTORY: Chest pain TECHNIQUE: Frontal and lateral views of the chest are obtained. FINDINGS: There is no focal air space opacity, pleural effusion, or pneumothorax seen. The cardiac silhouette size is within normal limits. The osseous structures are intact. There are overlying car diac leads. IMPRESSION: No acute cardiopulmonary process.
--- NOTE | 2018-05-24 10:56 | ED ---
Back Pain HPI - General Source: patient, RN notes reviewed, old records reviewed Limitations: no limitations <Tracie Brown - Last Filed: 05/24/18 12:59> <Rj Recio - Last Filed: 05/24/18 13:23> - General Chief Complaint: Back Pain/Injury Stated Complaint: back pain Time Seen by Provider: 05/24/18 09:18 - History of Present Illness Initial Comments: Patient is a 47-year-old female presents emergency Department with a chief complaint of thoracic back pain rating towards her left arm and numbness and tingling down the left arm. She also reports she's been having intermittent pains within the center of her left side of her chest. Patient states that this happened last night. She does have a history of scoliosis and thought she was having a muscle spasm. She's been taking Motrin. She reports that she's been having some shortness of breath but she relates that being related to the spasms in her back. She does have a family history of heart disease. She did have a clear echo and stress test in August. Patient states that when she started having this pain around midnight she did have some episodes of sweating related to the pain. At this time she reports that she can feel the muscle and it seems to be reproducible in nature. (Tracie Brown) - Related Data Home Medications Medication Instructions Recorded Confirmed LORazepam [Ativan] 1 mg PO DAILY PRN 06/08/14 05/24/18 Albuterol Inhaler [Ventolin Hfa 1 - 2 puff INHALATION RT-Q6H PRN 12/26/15 Inhaler] Nicotine Polacrilex [Quit 2] 2 mg PO Q4H PRN 01/25/16 05/24/18 Nitroglycerin Sl Tabs [Nitrostat] 0.4 mg SUBLINGUAL Q5M PRN 09/11/17 05/24/18 Aspirin EC [Ecotrin Low Dose] 81 mg PO DAILY 05/24/18 05/24/18 [place]-3 Fatty Acids/Fish Oil [Fish 1 cap PO DAILY 05/24/18 05/24/18 Oil 1,000 mg Softgel] Allergies Allergy/AdvReac Type Severity Reaction Status Date / Time oseltamivir phosphate Allergy Rash/Hives Verified 05/24/18 09:46 [From Tamiflu] peanut Allergy Rash/Hives Verified 05/24/18 09:46 Sulfa (Sulfonamide Allergy Rash/Hives Verified 05/24/18 09:46 Antibiotics) Review of Systems ROS Other: All systems not noted in ROS Statement are negative. <Tracie Brown - Last Filed: 05/24/18 12:59> ROS Other: All systems not noted in ROS Statement are negative. <Rj Recio - Last Filed: 05/24/18 13:23> ROS Statement: Those systems with pertinent positive or pertinent negative responses have been documented in the HPI. Past Medical History Past Medical History: GERD/Reflux, Pneumonia Additional Past Medical History / Comment(s): scoliosis, hospitalized for pneumonia-klebsiella end of Jul., mitral valve regurgitation History of Any Multi-Drug Resistant Organisms: None Reported Past Surgical History: Adenoidectomy, Tonsillectomy, Tubal Ligation, Uterine Ablation Additional Past Surgical History / Comment(s): oral Past Anesthesia/Blood Transfusion Reactions: No Reported Reaction Additional Past Anesthesia/Blood Transfusion Reaction / Comment(s): no blood transfusions Past Psychological History: Anxiety Smoking Status: Former smoker Past Alcohol Use History: Occasional Past Drug Use History: None Reported - Past Family History Mother Family Medical History: Congestive Heart Failure (CHF), Diabetes Mellitus, Hypertension Father Family Medical History: Cancer, Diabetes Mellitus Additional Family Medical History / Comment(s): KIDNEY CANCER. <Tracie Brown - Last Filed: 05/24/18 12:59> General Exam Limitations: no limitations General appearance: alert, in no apparent distress Head exam: Present: atraumatic, normocephalic, normal inspection Eye exam: Present: normal appearance, PERRL, EOMI. Absent: scleral icterus, conjunctival injection, periorbital swelling ENT exam: Present: normal exam, mucous membranes moist Neck exam: Present: normal inspection. Absent: tenderness, meningismus, lymphadenopathy Respiratory exam: Present: normal lung sounds bilaterally, other (Patient has tenderness to palpation over the thoracic spine.). Absent: respiratory distress , wheezes, rales, rhonchi, stridor Cardiovascular Exam: Present: regular rate, normal rhythm, normal heart sounds. Absent: systolic murmur, diastolic murmur, rubs, gallop, clicks GI/Abdominal exam: Present: soft, normal bowel sounds. Absent: distended, tenderness, guarding, rebound, rigid Extremities exam: Present: normal inspection, full ROM, normal capillary refill. Absent: tenderness, pedal edema, joint swelling, calf tenderness Back exam: Present: normal inspection Neurological exam: Present: alert, oriented X3, CN II-XII intact Psychiatric exam: Present: normal affect, normal mood Skin exam: Present: warm, dry, intact, normal color. Absent: rash <Tracie Brown - Last Filed: 05/24/18 12:59> <Rj Recio - Last Filed: 05/24/18 13:23> - General Exam Comments Initial Comments: The fifth [id number] female. Alert and oriented. No significant distress. ( Tracie Brown) Vital Signs 05/24/18 05/24/18 05/24/18 08:37 09:59 12:07 Temperature 98.5 F Pulse Rate 77 70 70 Respiratory 16 16 16 Rate Blood Pressure 127/82 149/82 142/72 O2 Sat by Pulse 97 97 100 Oximetry Medical Decision Making - Lab Data Result diagrams: 05/24/18 09:50 05/24/18 09:50 - Radiology Data Radiology results: report reviewed <Tracie Brown - Last Filed: 05/24/18 12:59> - Lab Data Result diagrams: 05/24/18 09:50 05/24/18 09:50 <Rj Recio - Last Filed: 05/24/18 13:23> - Medical Decision Making 47-year-old female presents to the emergency department with a chief complaint of episodes of chest pain at midnight sharp in nature and also some pain from her thoracic back rating down the left arm. Family history of heart disease. Patient reports that she's him the pain she was having some episodes of sweating and shortness of breath. She reports it seems to be somewhat better after receiving Toradol in the emergency department. She does have a history of smoking in the past. Patient initial troponin EKG reviewed and normal. Discussed case with Dr. Recio. With family history vasectomy likely the Patient for observation for consult cardiology. 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 (Tracie Brown) Patient reevaluated and sitting comfortably in chair. Patient updated on results and plan. Case was discussed in detail with Dr. Varma, who will admit for Dr. Kessler. (Rj Recio) - Lab Data Lab Results 05/24/18 05/24/18 05/24/18 Range/Units 09:50 09:50 09:50 WBC 6.0 (3.8-10.6) k/uL RBC 5.00 (3.80-5.40) m/uL Hgb 15.2 (11.4-16.0) gm/dL Hct 44.2 (34.0-46.0) % MCV 88.5 (80.0-100.0) fL MCH 30.4 (25.0-35.0) pg MCHC 34.3 (31.0-37.0) g/dL RDW 12.7 (11.5-15.5) % Plt Count 300 (150-450) k/uL Neutrophils % 72 % Lymphocytes % 20 % Monocytes % 5 % Eosinophils % 2 % Basophils % 1 % Neutrophils # 4.3 (1.3-7.7) k/uL Lymphocytes # 1.2 (1.0-4.8) k/uL Monocytes # 0.3 (0-1.0) k/uL Eosinophils # 0.1 (0-0.7) k/uL Basophils # 0.0 (0-0.2) k/uL PT (9.0-12.0) sec INR (<1.2) APTT (22.0-30.0) sec D-Dimer (<0.60) mg/L FEU Sodium 141 (137-145) mmol/L Potassium 4.5 (3.5-5.1) mmol/L Chloride 108 H (98-107) mmol/L Carbon Dioxide 24 (22-30) mmol/L Anion Gap 9 mmol/L BUN 13 (7-17) mg/dL Creatinine 0.60 (0.52-1.04) mg/dL Est GFR (CKD-EPI)AfAm >90 (>60 ml/min/1.73 sqM) Est GFR (CKD-EPI)NonAf >90 (>60 ml/min/1.73 sqM) Glucose 109 H (74-99) mg/dL Calcium 9.1 (8.4-10.2) mg/dL Magnesium 2.3 (1.6-2.3) mg/dL Total Bilirubin 0.4 (0.2-1.3) mg/dL AST 22 (14-36) U/L ALT 38 (9-52) U/L Alkaline Phosphatase 40 (38-126) U/L Total Creatine Kinase 40 (30-135) U/L CK-MB (CK-2) 0.3 (0.0-2.4) ng/mL CK-MB (CK-2) Rel Index 0.8 Troponin I <0.012 (0.000-0.034) ng/mL Total Protein 6.3 (6.3-8.2) g/dL Albumin 4.1 (3.5-5.0) g/dL 05/24/18 Range/Units 09:50 WBC (3.8-10.6) k/uL RBC (3.80-5.40) m/uL Hgb (11.4-16.0) gm/dL Hct (34.0-46.0) % MCV (80.0-100.0) fL MCH (25.0-35.0) pg MCHC (31.0-37.0) g/dL RDW (11.5-15.5) % Plt Count (150-450) k/uL Neutrophils % % Lymphocytes % % Monocytes % % Eosinophils % % Basophils % % Neutrophils # (1.3-7.7) k/uL Lymphocytes # (1.0-4.8) k/uL Monocytes # (0-1.0) k/uL Eosinophils # (0-0.7) k/uL Basophils # (0-0.2) k/uL PT 10.0 (9.0-12.0) sec INR 1.0 (<1.2) APTT 22.7 (22.0-30.0) sec D-Dimer 0.39 (<0.60) mg/L FEU Sodium (137-145) mmol/L Potassium (3.5-5.1) mmol/L Chloride (98-107) mmol/L Carbon Dioxide (22-30) mmol/L Anion Gap mmol/L BUN (7-17) mg/dL Creatinine (0.52-1.04) mg/dL Est GFR (CKD-EPI)AfAm (>60 ml/min/1.73 sqM) Est GFR (CKD-EPI)NonAf (>60 ml/min/1.73 sqM) Glucose (74-99) mg/dL Calcium (8.4-10.2) mg/dL Magnesium (1.6-2.3) mg/dL Total Bilirubin (0.2-1.3) mg/dL AST (14-36) U/L ALT (9-52) U/L Alkaline Phosphatase (38-126) U/L Total Creatine Kinase (30-135) U/L CK-MB (CK-2) (0.0-2.4) ng/mL CK-MB (CK-2) Rel Index Troponin I (0.000-0.034) ng/mL Total Protein (6.3-8.2) g/dL Albumin (3.5-5.0) g/dL 05/24/18 10:56 EKG performed at a 45 shows normal sinus rhythm, normal EKG. Return of 84 beats minute. Pulse 140 ms. QRS duration 84 ms. QT QTC 378/446 ms. (Tracie Brown) - Radiology Data Thoracic spine shows mild scoliosis. Chest x-rays no acute cardiopulmonary process. Cervical spine shows degenerative changes C5-C6 and C6-C7. (Tracie Brown) Disposition Is patient prescribed a controlled substance at d/c from ED?: No When asked, does pt state using other controlled substances?: No If prescribed controlled substance>3 days was MAPS reviewed?: No If opioid is for acute pain is fill amount 7 days or less?: No If Rx opioid, was Start Talking consent form obtained?: No Time of Disposition: 13:02 <Tracie Brown - Last Filed: 05/24/18 12:59> <Rj Recio - Last Filed: 05/24/18 13:23> Clinical Impression: Unstable angina pectoris, Thoracic back pain Disposition: ADMITTED IP TO THIS HOSP Condition: Stable Referrals: Raheem Kessler MD [Primary Care Provider] - 1-2 days
[2018-05-24 11:04] LABS: Creatine Kinase 40 U/L (30-135)
[2018-05-24 11:15] LABS: Creatine Kinase MB 0.3 ng/mL (0.0-2.4); Troponin I <0.012 ng/mL (0.000-0.034)
[2018-05-24 12:15] LABS: D-Dimer 0.39 mg/L FEU (<0.60)
[2018-05-24] MEDS ORDERED: NITROGLYCERIN SL TABS 0.4 MG TAB SUBLINGUAL PRN ×2 (13:03→13:05)
[2018-05-24] MEDS ORDERED: NICOTINE POLACRILEX 2 MG GUM BUCCAL PRN (13:05)
[2018-05-24] MEDS ORDERED: LORazepam 1 MG TAB PO PRN (13:05)
[2018-05-24] MEDS ORDERED: ORPHENADRINE 30 MG/ML 2 ML VIAL IVP STA (13:22)
[2018-05-24] MEDS ORDERED: ORPHENADRINE 30 MG/ML 2 ML VIAL IVP PRN (13:22)
[2018-05-24 16:29] LABS: Creatine Kinase 38 U/L (30-135)
[2018-05-24 16:44] LABS: Creatine Kinase MB <0.2 ng/mL (0.0-2.4); Troponin I <0.012 ng/mL (0.000-0.034)
[2018-05-24 19:40] VITALS: RESP 16
[2018-05-24 22:45] LABS: Creatine Kinase 37 U/L (30-135)
[2018-05-24 22:58] LABS: Creatine Kinase MB <0.2 ng/mL (0.0-2.4); Troponin I <0.012 ng/mL (0.000-0.034)
--- NOTE | 2018-05-25 00:46 | P.HPIM ---
History of Present Illness H&P Date: 05/24/18 Chief Complaint: Back spasms and chest tightness Patient is a 47-year-old female with known history of scoliosis, mitral valve regurgitation and GERD as well as chronic back spasm presented to ER with complaints of back pain mainly thoracic area radiating down the left arm and also felt numbness and tingling. Patient does have history of scoliosis and usually gets muscle spasms on the right side. Last night patient did have severe muscle spasms along with pain radiating down the left arm with numbness and tingling along with sweating. patient also felt some shortness of breath. Patient came to ER for further evaluation. Patient had cardiac workup including a stress test was done in February 2017. Patient's brother also found have heart disease recently and patient has been concerned. No history of hypertension, diabetes type 2, hyperlipidemia, smoking. Thoracic spine shows mild scoliosis. Chest x-rays no acute cardiopulmonary process. Cervical spine shows degenerative changes C5-C6 and C6-C7 EKG showed normal sinus rhythm Troponin 1 negative Review of Systems Constitutional: Patient denies any fever or chills . No generalized weakness or weight loss. Abdomen: Patient denied nausea vomiting and diarrhea and abdominal pain. Cardiovascular: Patient denies any chest pain or short of breath no palpitations. Respiratory: patient denied any cough is from production. No shortness of breath Neurologic: Patient denied any numbness or tingling headache. Musculoskeletal: Patient denies any complaints of joint swelling or deformity. Skin: Negative Psychiatric: Negative Endocrine: No heat or cold intolerance. No recent weight gain. Genitourinary: No dysuria or hematuria. All other 14 point ROS negative except the above Past Medical History Past Medical History: GERD/Reflux, Pneumonia Additional Past Medical History / Comment(s): scoliosis, hospitalized for pneumonia-klebsiella end of Jul., mitral valve regurgitation History of Any Multi-Drug Resistant Organisms: None Reported Past Surgical History: Adenoidectomy, Tonsillectomy, Tubal Ligation, Uterine Ablation Additional Past Surgical History / Comment(s): oral Past Anesthesia/Blood Transfusion Reactions: No Reported Reaction Additional Past Anesthesia/Blood Transfusion Reaction / Comment(s): no blood transfusions Smoking Status: Former smoker - Past Family History Mother Family Medical History: Congestive Heart Failure (CHF), Diabetes Mellitus, Hypertension Father Family Medical History: Cancer, Diabetes Mellitus Additional Family Medical History / Comment(s): KIDNEY CANCER. Medications and Allergies Home Medications Medication Instructions Recorded Confirmed Type LORazepam [Ativan] 1 mg PO DAILY PRN 06/08/14 05/24/18 History Albuterol Inhaler [Ventolin Hfa 1 - 2 puff INHALATION RT-Q6H PRN 12/26/15 History Inhaler] Nicotine Polacrilex [Quit 2] 2 mg PO Q4H PRN 01/25/16 05/24/18 History Nitroglycerin Sl Tabs [Nitrostat] 0.4 mg SUBLINGUAL Q5M PRN 09/11/17 05/24/18 History Aspirin EC [Ecotrin Low Dose] 81 mg PO DAILY 05/24/18 05/24/18 History [place]-3 Fatty Acids/Fish Oil [Fish 1 cap PO DAILY 05/24/18 05/24/18 History Oil 1,000 mg Softgel] Allergies Allergy/AdvReac Type Severity Reaction Status Date / Time oseltamivir phosphate Allergy Rash/Hives Verified 05/24/18 09:46 [From Tamiflu] peanut Allergy Rash/Hives Verified 05/24/18 09:46 Sulfa (Sulfonamide Allergy Rash/Hives Verified 05/24/18 09:46 Antibiotics) Physical Exam Vitals: Vital Signs Temp Pulse Pulse Resp BP BP Pulse Ox 05/24/18 15:25 98.2 F 73 18 151/77 97 05/24/18 15:24 97.7 F 75 16 129/65 98 05/24/18 13:50 80 18 141/68 97 05/24/18 12:07 70 16 142/72 100 05/24/18 09:59 70 16 149/82 97 05/24/18 08:37 98.5 F 77 16 127/82 97 Intake and Output 05/24/18 05/24/18 05/24/18 06:59 14:59 22:59 Other: Weight 87.997 kg 88.8 kg PHYSICAL EXAMINATION: Patient is lying in the bed comfortably, no acute distress, awake alert and oriented.. HEENT: Normocephalic. Neck is supple. Pupils reactive. Nostrils clear. Oral cavity is moist. Ears reveal no drainage. Neck reveals no JVD, carotid bruits, or thyromegaly. CHEST EXAMINATION: Trachea is central. Symmetrical expansion. Lung manriquez clear to auscultation and percussion. CARDIAC: Normal S1, S2 with no gallops. No murmurs ABDOMEN: Soft. Bowel sounds normal. No organomegaly. No abdominal bruits. Extremities: reveal no edema. No clubbing or cyanosis Neurologically awake, alert, oriented x3 with well-coordinated movements. No focal deficits noted Skin: No rash or skin lesions. Psychiatric: Coperative. Nonsuicidal Musculoskeletal: No joint swelling or deformity. Normal range of motion. Results CBC & Chem 7: 05/24/18 09:50 05/24/18 09:50 Labs: Abnormal Lab Results - Last 24 Hours (Table) 05/24/18 Range/Units 09:50 Chloride 108 H (98-107) mmol/L Glucose 109 H (74-99) mg/dL Thrombosis Risk Factor Assmnt - DVT/VTE Prophylaxis DVT/VTE Prophylaxis: Pharmacologic Prophylaxis ordered - Choose All That Apply Any of the Below Risk Factors Present?: No Other Risk Factors: No Other congenital or acquired thrombophilia - If yes, enter type in comment: No Thrombosis Risk Factor Assessment Level: Very Low Risk Assessment and Plan Assessment: Atypical chest pain Left upper extremity spasms with numbness and tingling likely musculoskeletal GERD Scoliosis History of previous admissions with chest pain Negative stress test in August 2017 Previous history of smoking Family history of coronary artery disease Plan: Patient will be continued on telemetry monitoring. Serial EKGs and troponins. Cardiology was consulted. Continue the pain management and follow closely. Further recommendations based on the clinical course. Time with Patient: Greater than 30
[2018-05-25 02:51] LABS: Cholesterol 162 mg/dL (<200); HDL Cholesterol 47 mg/dL (40-60); LDL Cholesterol,Calculated 96 mg/dL (0-99); Triglycerides 94 mg/dL (<150)
[2018-05-25] MEDS ORDERED: ASPIRIN 81 MG PO SCH (09:00)
[2018-05-25] MEDS ORDERED: NON-FORMULARY DRUG (Omega-3 Fatty Acids/Fish Oil [Fish Oil 1,000 Mg Softgel] 1 CAP) PO SCH (09:00)
[2018-05-25] MEDS ORDERED: ASPIRIN 325 MG TAB PO SCH (09:00)
--- NOTE | 2018-05-25 10:10 | CONS ---
CONSULTATION Judy Wang is a 47-year-old lady who presented to the hospital with episode of mostly left back pain in the paraspinal area. She does have some scoliosis, also had sharp pain in the left anterior chest. The pain lasted a few seconds. Quality of pain is atypical. This lady has history of scoliosis, atypical chest pain. In August, she had a stress echo walked for over 9 minutes and there was no evidence of ischemia. At the time of my evaluation, she is asymptomatic. Her troponins are normal and 2 EKGs are unremarkable. PAST MEDICAL HISTORY: 1. Hospitalization with atypical chest pain in August 2017 with unremarkable stress echo, walked over 9 minutes. 2. History of scoliosis. 3. There was a question of pneumonia in the past. She has history of gastroesophageal reflux disease. She is status post tubal ligation, uterine ablation, tonsillectomy. MEDICATIONS: Include lorazepam, albuterol, and she also takes aspirin 81 mg daily and some fish oil. ALLERGIES: She is allergic to SULFA and TAMIFLU. PHYSICAL EXAMINATION: On examination blood pressure is 118/70, pulse rate is 70 per minute, regular. HEENT: Unremarkable. Fundus was not examined by me. Neck is supple. No JVD. I do not hear a carotid bruit. There is no thyromegaly. Heart exam reveals S1, S2 heard normally without a rub, murmur or gallop. Lungs are clear. Abdomen is soft, nontender. Lower extremities reveal normal pulses. No edema. Central nervous system is normal. EKG revealed sinus mechanism, no acute changes. IMPRESSION: 1. Atypical chest pain with a normal stress echo about 6 or 7 months ago. 2. History of scoliosis. RECOMMENDATIONS: I am recommending no further intervention at this time. Her pain is quite atypical. She can be discharged and follow up with her primary care physician, Dr. Raheem Kessler. Her EKG, troponins, and chest pain symptoms do not suggest any myocardial ischemia. MMODL / IJN: [id number] /
--- NOTE | 2018-05-25 12:00 | P.DS ---
Providers Date of admission: 05/24/18 13:27 Expected date of discharge: 05/25/18 Attending physician: Raheem Kessler Consults: 05/24/18 13:03 Consult Physician Urgent Consulting Provider: Rubén Jones Consult Reason/Comments: Atypical Chest pain Do you want consulting provider notified?: Yes Primary care physician: Raheem Kessler Hospital Course: 47-year-old female was admitted through the emergency room after complaints of chest pain and numbness and tingling to left arm thoracic back pain. Patient was evaluated by grounds restoration specialist and cleared for discharge home Assessment Atypical chest pain troponins negative 3 Thoracic back pain with cervical back pain History of GERD History of scoliosis Plan Follow-up with family physician We will do MRI of back outpatient Patient Condition at Discharge: Stable Plan - Discharge Summary Discharge Rx Participant: Yes New Discharge Prescriptions: Continue LORazepam [Ativan] 1 mg PO DAILY PRN PRN Reason: Anxiety Albuterol Inhaler [Ventolin Hfa Inhaler] 1 - 2 puff INHALATION RT-Q6H PRN PRN Reason: Shortness Of Breath Nicotine Polacrilex [Quit 2] 2 mg PO Q4H PRN PRN Reason: CRAVINGS Nitroglycerin Sl Tabs [Nitrostat] 0.4 mg SUBLINGUAL Q5M PRN PRN Reason: Chest Pain [place]-3 Fatty Acids/Fish Oil [Fish Oil 1,000 mg Softgel] 1 cap PO DAILY Aspirin EC [Ecotrin Low Dose] 81 mg PO DAILY Discharge Medication List LORazepam [Ativan] 1 mg PO DAILY PRN 06/08/14 [History] Albuterol Inhaler [Ventolin Hfa Inhaler] 1 - 2 puff INHALATION RT-Q6H PRN [History] Nicotine Polacrilex [Quit 2] 2 mg PO Q4H PRN 01/25/16 [History] Nitroglycerin Sl Tabs [Nitrostat] 0.4 mg SUBLINGUAL Q5M PRN 09/11/17 [History] Aspirin EC [Ecotrin Low Dose] 81 mg PO DAILY 05/24/18 [History] [place]-3 Fatty Acids/Fish Oil [Fish Oil 1,000 mg Softgel] 1 cap PO DAILY [History] Follow up Appointment(s)/Referral(s): Raheem Kessler MD [Primary Care Provider] - 1-2 days Patient Instructions/Handouts: Chest Pain (DC)
[2018-05-25 12:02] VITALS: BP 126/81; PULSE 77; TEMP 98.8
== END 2018-05-25 12:46 | disposition home or self-care (01) ==
LOC: EC 08:28 → 3OBS 13:27
PROVIDERS: ADMIT Family Medicine; ATTEND Family Medicine
DX: R07.89 Other chest pain (principal); M54.6 Pain in thoracic spine; M54.2 Cervicalgia; K21.9 Gastro-esophageal reflux disease without esophagitis; M41.9 Scoliosis, unspecified; R20.0 Anesthesia of skin; R20.2 Paresthesia of skin; R06.02 Shortness of breath; M62.830 Muscle spasm of back; R61 Generalized hyperhidrosis; I34.0 Nonrheumatic mitral (valve) insufficiency; F41.9 Anxiety disorder, unspecified; Z82.49 Family history of ischemic heart disease and other diseases of the circulatory system; Z79.82 Long term (current) use of aspirin; Z88.2 Allergy status to sulfonamides; Z88.8 Allergy status to other drugs, medicaments and biological substances; Z91.010 Allergy to peanuts; Z87.01 Personal history of pneumonia (recurrent); Z87.891 Personal history of nicotine dependence; Z83.3 Family history of diabetes mellitus; Z80.51 Family history of malignant neoplasm of kidney
CPT/HCPCS: 99285; 96374 ×2; 96361 ×2; 96375 ×2; 36415; 93005; 85379; 80061; 80053; 82550; 82553; 83735; 84484; 85025; 85610; 85730; 72070; 72040; 71046; G0378 ×2; J2360; J1885

== ENCOUNTER → 2018-06-21 | Outpatient (CLI) | payer MEDICAID ==
--- NOTE | 2018-06-21 09:30 | MR ---
EXAMINATION TYPE: MR cervical spine wo con DATE OF EXAM: 06/21/2018 COMPARISON: Cervical spine radiographs dated 05/24/2018 HISTORY: SCOLIOSIS; ; DDD OF CSP TECHNIQUE: Multiplanar, multisequence images of the cervical spine were acquired. FINDINGS: The cervical spine vertebral bodies maintain normal vertebral body heights. There is very m ild anterolisthesis of C6 on C7, likely on a degenerative basis (grade 1). Posterior disc osteophyte complexes seen at this level. Cervical cord signal is maintained throughout. Bone marrow signal is un remarkable. Multilevel disc desiccation is seen. There is a questionable T1 hyperintense and T2 hypointense pituitary gland lesion seen left para midl ine on sagittal T1 and T2 nonfat sat images 5. This measures approximately 7 mm. MR pituitary gland p rotocol is recommended for further evaluation. C2-C3: No evidence for degenerative disc disease. No disc bulge/herniation or protrusion. No Canal stenosis. Foramina are patent bilaterally. C3-C4: No evidence for degenerative disc disease. No disc bulge/herniation or protrusion. No Canal stenosis. Foramina are patent bilaterally. C4-C5: No evidence for degenerative disc disease. No disc bulge/herniation or protrusion. No Canal stenosis. Foramina are patent bilaterally. C5-C6: There is a small right paracentral disc herniation and mild uncovertebral hypertrophy as well as facet arthropathy resulting in mild bilateral neural foraminal narrowing and no significant spinal canal stenosis. C6-C7: There is a small broad-based disc bulge narrowing the ventral subarachnoid space, however ther e remains CSF anterior to the ventral cervical cord with no alteration in signal of the cervical cord and no significant spinal canal stenosis. Uncovertebral hypertrophy and facet arthropathy mildly katie row the right foramen. Left neural foramen is patent. C7-T1: There is a small broad-based disc bulge without neural foraminal narrowing or spinal canal marcin nosis. IMPRESSION: 1. Small right paracentral disc herniation at C5-C6 and degenerative changes resulting in mild right neural foraminal narrowing without spinal canal stenosis. 2. Degenerative disc disease at C6-C7 resulting in mild right neural foraminal narrowing. Spinal yogesh l and left neural foramen are patent. 3. Questionable 7 mm pituitary gland lesion partially visualized on this examination for which dedica lesvia evaluation with enhanced MR brain pituitary mass protocol is recommended. 4. Very mild grade 1 anterolisthesis of C6 on C7, likely on a degenerative basis.
--- NOTE | 2018-06-21 09:44 | MR ---
EXAMINATION TYPE: MR thoracic spine wo/w con DATE OF EXAM: 06/21/2018 COMPARISON: Thoracic radiographs dated 05/24/2018 HISTORY: SCOLIOSIS; ; DDD OF CSP CONTRAST/TECHNIQUE: Standard multiplanar, multisequence MRI of the thoracic spine was performed per departmental protocol utilizing 7.5 mL intravenous Gadavist gadolinium contrast. FINDINGS: Thoracic vertebral bodies maintain normal vertebral body heights and alignment. Again there is a mild dextroscoliotic curvature of the thoracic spine centered at approximately T7-T8. Spinal cord signal throughout the thoracic spine is unremarkable. Disc desiccation is seen of the upper thoracic spine a nd at T6-T7. No abnormal postcontrast enhancement is seen throughout the thoracic spine or within the thoracic spinal cord. At T6-T7 there is a very small broad-based disc bulge without spinal canal stenosis or neural foramin al narrowing. No focal disc herniation. At T10-T11 there is ligamentum flavum buckling minimally impressing on the posterior thecal sac. At T11-T12 there is facet arthropathy bilaterally, left greater than right with ligamentum flavum buc janessa. The left facet arthropathy minimally impresses upon the posterior thecal sac without significa nt spinal canal stenosis. No significant neural foraminal narrowing is seen at this level either. The thyroid gland is heterogenous with an approximately 1.2 cm left thyroid T2 hyperintense and T1 po stcontrast hyperintense nodule for which further evaluation with thyroid ultrasound is recommended. M inimal bibasilar subsegmental atelectasis is noted. IMPRESSION: 1. No evidence of spinal canal stenosis or neuroforaminal narrowing. No evidence of vertebral body he ight loss or malalignment. 2. Mild degenerative disc disease at T6-T7 with a disc bulge identified, however no neural foraminal narrowing or spinal canal stenosis is seen. 3. Facet arthropathy and ligamentum flavum buckling at the T11-T12 level and ligamentum flavum buckli ng at T10-T11 level without neural foraminal narrowing. 4. No abnormal enhancement of the thoracic spine. 5. Heterogeneity of the thyroid gland with focal left thyroid 1.2 cm nodule. Full characterization wi thyroid ultrasound is recommended. 6. Mild dextroscoliosis of the thoracic spine centered at T7-T8.
== END | disposition home or self-care (01) ==
LOC: RADMRIMAIN 07:58
PROVIDERS: ATTEND Family Medicine
DX: M99.71 Connective tissue and disc stenosis of intervertebral foramina of cervical region (principal); M43.12 Spondylolisthesis, cervical region; M50.222 Other cervical disc displacement at C5-C6 level; M50.323 Other cervical disc degeneration at C6-C7 level; M51.24 Other intervertebral disc displacement, thoracic region; M51.34 Other intervertebral disc degeneration, thoracic region; M46.84 Other specified inflammatory spondylopathies, thoracic region; M41.84 Other forms of scoliosis, thoracic region; M24.28 Disorder of ligament, vertebrae
CPT/HCPCS: 72141; 72157; A9581

== ENCOUNTER → 2018-06-24 | Outpatient (CLI) | payer MEDICAID ==
--- NOTE | 2018-06-24 22:45 | MR ---
EXAMINATION TYPE: MR pituitary wo/w con DATE OF EXAM: 06/24/2018 COMPARISON: CT brain January 25, 2016. MRI cervical spine June 21, 2018 HISTORY: Benign neoplasm of pituitary gland, recent abnormal MRI TECHNIQUE: Multiplanar, multisequence images of the brain and brainstem is performed without and with IV contras t, utilizing 10 mL intravenous Gadavist . The pituitary gland protocol. FINDINGS: Pituitary gland is normal in size within sella turcica. Corresponding to recent MRI there i s however area of increased T1 and subtle slight diminished T2 signal that shows nonenhancement seen best coronal image 11 measuring roughly 5 x 5 mm felt to reflect a pituitary microadenoma in the left superior aspect. Optic chiasm shows normal enhancement in the midline. Suprasellar cistern is mainta ined. No gross hydrocephalus is present. Craniocervical junction is intact. IMPRESSION: Probable pituitary microadenoma confirmed. Lab and clinical correlation advised.
== END | disposition home or self-care (01) ==
LOC: RADMRIMAIN 17:33
PROVIDERS: ATTEND Family Medicine
DX: E23.7 Disorder of pituitary gland, unspecified (principal)
CPT/HCPCS: 70553; A9581

== ENCOUNTER → 2018-06-30 | Outpatient (CLI) | payer MEDICAID ==
--- NOTE | 2018-06-30 15:24 | US ---
EXAMINATION TYPE: US thyroid st tissue head/neck DATE OF EXAM: 06/30/2018 COMPARISON: None CLINICAL HISTORY: E04.2 Nontoxic multinodular goiter. MRI showed nodule. No thyroid medications. GLAND SIZE: Right Lobe: 3.9 x 1.3 x 1.5 cm Overall Parenchyma: homogenous Left Lobe: 3.8 x 1.6 x 1.3 cm Overall Parenchyma: homogeneous Isthmus Thickness: 0.3 cm NODULES RIGHT: # of nodules measured on right: 2 1. 0.6 X 0.4 x 0.4 cm hypoechoic mixed nodule at the mid pole with well-defined margins. This nodu le is taller than wide and shows no intranodular vascularity. Prior size: No prior 2. 0.6 X 0.7 x 0.5 cm hypoechoic solid nodule at the lower pole with well-defined margins. This nod ule is wider than tall and shows intranodular vascularity. Prior size: No prior LEFT: # of nodules measured on left: 1 1. 1.0 X 0.9 x 1.0 cm isoechoic solid nodule at the lower pole with well-defined margins. This nod ule is taller than wide and shows intranodular vascularity. Prior size: No prior ISTHMUS: # of nodules measured in the isthmus: 0 Bilateral neck scanned. Three lymph node appearing lesions seen in right neck. Largest measured = 1. 5 x 0.7 x 0.5 cm IMPRESSION: Multiple thyroid nodules the largest measures 1.0 cm on the left. This does not yet meet criteria for fine-needle aspiration and therefore surveillance is recommended. Additionally 3 right nonenlarged m orphologically normal-appearing lymph nodes are incidentally identified.
== END | disposition home or self-care (01) ==
LOC: RADUSWWP 14:46
PROVIDERS: ATTEND Family Medicine
DX: E04.2 Nontoxic multinodular goiter (principal)
CPT/HCPCS: 76536

== ENCOUNTER → 2018-08-17 | Outpatient (CLI) | payer MEDICAID ==
[2018-08-17 09:53] LABS: T4, Free (Free Thyroxine) 0.98 ng/dL (0.78-2.19)
[2018-08-17 19:03] LABS: ACTH 8.71 pg/mL (0.00-45.99)
== END ==
LOC: LABMAIN 07:23
PROVIDERS: ATTEND Internal Medicine
DX: D35.2 Benign neoplasm of pituitary gland (principal)
CPT/HCPCS: 36415; 82024; 82533; 82670; 83001; 83002; 84146; 84305; 84439; 84443

== ENCOUNTER → 2019-02-02 | Outpatient (CLI) | payer MEDICAID ==
--- NOTE | 2019-02-02 12:17 | US ---
EXAMINATION TYPE: US thyroid st tissue head/neck DATE OF EXAM: 02/02/2019 COMPARISON: Prior thyroid ultrasound June 30, 2018 CLINICAL HISTORY: R22.0 Swelling/mass/nodule. Follow up thyroid nodules GLAND SIZE: Right Lobe: 4.6 x 1.3 x 1.5 cm Overall Parenchyma: homogenous Left Lobe: 4.5 x 1.2 x 1.6 cm Overall Parenchyma: homogeneous Isthmus Thickness: 0.5 cm NODULES RIGHT: # of nodules measured on right: 2 1. 0.6 X 0.5 x 0.5 cm hypoechoic nodule at the mid pole with well-defined margins; . This nodule i s wider than tall and shows no intranodular vascularity. Prior size: 0.6 x 0.4 x 0.4 cm 2. 0.6 X 0.5 x 0.7 cm hypoechoic nodule at the lower pole with well-defined margins; . This nodule is wider than tall and shows intranodular vascularity. Prior size: 0.6 x 0.7 x 0.5 cm LEFT: # of nodules measured on left: 1 1. 1.1 X 0.9 x 1.0 cm isoechoic solid nodule at the lower pole with well-defined margins; . This n odule is taller than wide and shows intranodular vascularity. Prior size: 1.0 x 0.9 x 1.0 cm ISTHMUS: # of nodules measured in the isthmus: 0 Bilateral neck scanned, normal appearing lymph nodes right neck There is redemonstration of normal size homogeneous thyroid with few scattered nodules bilaterally. N o significant change from most recent study. IMPRESSION: As above, overall stable findings.
== END ==
LOC: RADUSWWP 10:57
PROVIDERS: ATTEND Surgery Plastic and Reconstructive Surgery
DX: E04.1 Nontoxic single thyroid nodule (principal); Z88.2 Allergy status to sulfonamides; Z88.7 Allergy status to serum and vaccine; Z91.010 Allergy to peanuts
CPT/HCPCS: 76536

== ENCOUNTER → 2019-02-11 | Outpatient (CLI) | payer MEDICAID | END | disposition home or self-care (01) | LOC: LABMAIN 10:28 | PROVIDERS: ATTEND Family Medicine | DX: Z53.9 Procedure and treatment not carried out, unspecified reason (principal) ==

== ENCOUNTER 2019-05-06 11:29 | Emergency (ER) | payer MEDICAID ==
[2019-05-06] MEDS ORDERED: KETOROLAC 30 MG/ML 1 ML VIAL IVP STA (11:53)
[2019-05-06] MEDS ORDERED: ONDANSETRON 4 MG/2 ML VIAL IVP STA (11:55)
--- NOTE | 2019-05-06 12:00 | ED ---
General Adult HPI - General Chief complaint: Extremity Injury, Upper Stated complaint: Arm Pain Time Seen by Provider: 05/06/19 11:41 Source: patient Mode of arrival: ambulatory Limitations: no limitations - History of Present Illness Initial comments: This is a 48-year-old female with a history of thoracic scoliosis and thoracic back pain who presents emergency department for left sided thoracic back pain that she states radiates into her left arm and into her chest. She states that it started earlier this morning. She states it feels like a throbbing sensation going down her shoulder and then into her forearm and hand. She states it's made better when she holds her arm closer to her body and made worse when she moves her upper extremity. She states that the pain also is increased when she takes a deep breath and difficult for her to get a full breath and because of the discomfort. She states that the pain has made her somewhat nauseated and she does admit to some sweating in the left hand however nowhere else. She denies any recent injury however has been doing some workout's doors recently. She states that she has a history of this in the past that seem to resolve with cracking her back. However she does have a strong family history for CAD and was concerned with her symptoms she can emergency department. She denies any c ough. No fevers or chills. No neck pain. No headache. She states that she tried Motrin and Tums at home without much relief. No other acute complaints. MRI was performed approximately one year ago that did not show any acute abnormalities in her thoracic spine or nerve impingement at that time. She does have scoliosis noted on that MRI - Related Data Home Medications Medication Instructions Recorded Confirmed LORazepam [Ativan] 1 mg PO DAILY PRN 06/08/14 05/24/18 Albuterol Inhaler [Ventolin Hfa 1 - 2 puff INHALATION RT-Q6H PRN 12/26/15 05/24/18 Inhaler] Nicotine Polacrilex [Quit 2] 2 mg PO Q4H PRN 01/25/16 05/24/18 Nitroglycerin Sl Tabs [Nitrostat] 0.4 mg SUBLINGUAL Q5M PRN 09/11/17 05/24/18 Aspirin EC [Ecotrin Low Dose] 81 mg PO DAILY 05/24/18 05/24/18 [place]-3 Fatty Acids/Fish Oil [Fish 1 cap PO DAILY 05/24/18 05/24/18 Oil 1,000 mg Softgel] Allergies Allergy/AdvReac Type Severity Reaction Status Date / Time oseltamivir phosphate Allergy Rash/Hives Verified 05/06/19 11:36 [From Tamiflu] peanut Allergy Rash/Hives Verified 05/06/19 11:36 Sulfa (Sulfonamide Allergy Rash/Hives Verified 05/06/19 11:36 Antibiotics) Review of Systems ROS Statement: Those systems with pertinent positive or pertinent negative responses have been documented in the HPI. ROS Other: All systems not noted in ROS Statement are negative. Past Medical History Past Medical History: GERD/Reflux, Pneumonia Additional Past Medical History / Comment(s): scoliosis, hospitalized for pneumonia-klebsiella end of Jul., mitral valve regurgitation History of Any Multi-Drug Resistant Organisms: None Reported Past Surgical History: Adenoidectomy, Tonsillectomy, Tubal Ligation, Uterine Ablation Additional Past Surgical History / Comment(s): oral Past Anesthesia/Blood Transfusion Reactions: No Reported Reaction Additional Past Anesthesia/Blood Transfusion Reaction / Comment(s): no blood transfusions Past Psychological History: Anxiety Smoking Status: Former smoker Past Alcohol Use History: Occasional Past Drug Use History: None Reported - Past Family History Mother Family Medical History: Congestive Heart Failure (CHF), Diabetes Mellitus, Hypertension Father Family Medical History: Cancer, Diabetes Mellitus Additional Family Medical History / Comment(s): KIDNEY CANCER. General Exam - General Exam Comments Initial Comments: Constitutional: Awake alert Appears comfortable Head: Normocephalic atraumatic Eyes: no conjunctival injection No scleral icterus EOMI Neck: No JVD Supple no midline tenderness Back: There is no midline tenderness to the thoracic or lumbar spine. The patient does have some tenderness to palpation along the left mid paraspinal thoracic area. There is some increased tone of the musculature in this region. Heart: Regular rate rhythm normal S1-S2 no murmurs Lungs: Clear to auscultation bilaterally No wheezing No rales Abdomen: Soft nondistended nontender Extremities: Non edematous DP pulses intact Radial pulses intact and equal, no tenderness to palpation along the arm from the shoulder down to the hand. She is neurovascularly intact and shoulder and distal upper extremity Neuro: A&Ox3 5 out of 5 strength in upper and lower extremities bilaterally, sensation intact to light touch in all extremities No focal neurologic deficits Psych: Appropriate mood and affect Limitations: no limitations Course Vital Signs 05/06/19 05/06/19 05/06/19 11:34 12:24 12:30 Temperature 98.5 F Pulse Rate 89 69 67 Respiratory 18 13 20 Rate Blood Pressure 154/86 135/104 O2 Sat by Pulse 98 94 L 96 Oximetry 05/06/19 13:00 Temperature 98.0 F Pulse Rate 67 Respiratory 16 Rate Blood Pressure 135/81 O2 Sat by Pulse 95 Oximetry EKG Findings - EKG Comments: EKG Findings:: EKG showing normal sinus rhythm with a rate of 72. There is no ST segment changes or T-wave inversions. QTC is 431. Other intervals normal. No ectopy. Medical Decision Making - Medical Decision Making This is a 48-year-old female who presents emergency department for back pain and left arm pain with radiation into the chest. The patient had point tenderness in her thoracic paraspinal musculature with some spasming. The patient was given Toradol with almost complete resolution of her pain. She had an EKG done that was unremarkable. Troponin and d-dimer were both normal. The rest her blood work was completely unremarkable as well. Chest x-ray and x-ray of the thoracic spine did not show any acute abnormality. The patient states that she feels much improved and would like to go home. She does have follow-up with Dr. Jones and Dr. Kessler. Told her to extend that she calls and but somehow that she was in the emergency department and they can perform more testing if necessary. Told her to return if she has any recurrence or worsening of her symptoms. Especially return if she develops any chest pain, lightheadedness, dizziness, diffuse diaphoresis or any other concerning symptoms. All questions answered. - Lab Data Result diagrams: 05/06/19 12:28 05/06/19 12:28 Lab Results 05/06/19 05/06/19 05/06/19 Range/Units 12:28 12:28 12:28 WBC 6.2 (3.8-10.6) k/uL RBC 5.22 (3.80-5.40) m/uL Hgb 15.4 (11.4-16.0) gm/dL Hct 45.8 (34.0-46.0) % MCV 87.7 (80.0-100.0) fL MCH 29.5 (25.0-35.0) pg MCHC 33.6 (31.0-37.0) g/dL RDW 13.5 (11.5-15.5) % Plt Count 300 (150-450) k/uL Neutrophils % 70 % Lymphocytes % 21 % Monocytes % 6 % Eosinophils % 2 % Basophils % 1 % Neutrophils # 4.3 (1.3-7.7) k/uL Lymphocytes # 1.3 (1.0-4.8) k/uL Monocytes # 0.4 (0-1.0) k/uL Eosinophils # 0.1 (0-0.7) k/uL Basophils # 0.0 (0-0.2) k/uL PT (9.0-12.0) sec INR (<1.2) APTT (22.0-30.0) sec D-Dimer (<0.60) mg/L FEU Sodium 139 (137-145) mmol/L Potassium 4.2 (3.5-5.1) mmol/L Chloride 106 (98-107) mmol/L Carbon Dioxide 26 (22-30) mmol/L Anion Gap 7 mmol/L BUN 17 (7-17) mg/dL Creatinine 0.72 (0.52-1.04) mg/dL Est GFR (CKD-EPI)AfAm >90 (>60 ml/min/1.73 sqM) Est GFR (CKD-EPI)NonAf >90 (>60 ml/min/1.73 sqM) Glucose 94 (74-99) mg/dL Calcium 9.6 (8.4-10.2) mg/dL Magnesium 2.3 (1.6-2.3) mg/dL Total Bilirubin 0.6 (0.2-1.3) mg/dL AST 19 (14-36) U/L ALT 26 (9-52) U/L Alkaline Phosphatase 48 (38-126) U/L CK-MB (CK-2) <0.2 (0.0-2.4) ng/mL Troponin I <0.012 (0.000-0.034) ng/mL Total Protein 7.0 (6.3-8.2) g/dL Albumin 4.5 (3.5-5.0) g/dL 05/06/19 Range/Units 12:28 WBC (3.8-10.6) k/uL RBC (3.80-5.40) m/uL Hgb (11.4-16.0) gm/dL Hct (34.0-46.0) % MCV (80.0-100.0) fL MCH (25.0-35.0) pg MCHC (31.0-37.0) g/dL RDW (11.5-15.5) % Plt Count (150-450) k/uL Neutrophils % % Lymphocytes % % Monocytes % % Eosinophils % % Basophils % % Neutrophils # (1.3-7.7) k/uL Lymphocytes # (1.0-4.8) k/uL Monocytes # (0-1.0) k/uL Eosinophils # (0-0.7) k/uL Basophils # (0-0.2) k/uL PT 10.4 (9.0-12.0) sec INR 1.0 (<1.2) APTT 23.6 (22.0-30.0) sec D-Dimer 0.34 (<0.60) mg/L FEU Sodium (137-145) mmol/L Potassium (3.5-5.1) mmol/L Chloride (98-107) mmol/L Carbon Dioxide (22-30) mmol/L Anion Gap mmol/L BUN (7-17) mg/dL Creatinine (0.52-1.04) mg/dL Est GFR (CKD-EPI)AfAm (>60 ml/min/1.73 sqM) Est GFR (CKD-EPI)NonAf (>60 ml/min/1.73 sqM) Glucose (74-99) mg/dL Calcium (8.4-10.2) mg/dL Magnesium (1.6-2.3) mg/dL Total Bilirubin (0.2-1.3) mg/dL AST (14-36) U/L ALT (9-52) U/L Alkaline Phosphatase (38-126) U/L CK-MB (CK-2) (0.0-2.4) ng/mL Troponin I (0.000-0.034) ng/mL Total Protein (6.3-8.2) g/dL Albumin (3.5-5.0) g/dL Disposition Clinical Impression: Thoracic back pain Disposition: HOME SELF-CARE Condition: Stable Instructions (If sedation given, give patient instructions): Back Pain (ED) Is patient prescribed a controlled substance at d/c from ED?: No Referrals: Raheem Kessler MD [Primary Care Provider] - 1-2 days Rubén Jones MD [STAFF PHYSICIAN] - 1-2 days
[2019-05-06 12:36] LABS: Basophils % (A) 1 %; Eosinophils # (A) 0.1 k/uL (0-0.7); Eosinophils % (A) 2 %; HCT 45.8 % (34.0-46.0); HGB 15.4 gm/dL (11.4-16.0); Lymphocytes # (A) 1.3 k/uL (1.0-4.8); Lymphocytes % (A) 21 %; MCH 29.5 pg (25.0-35.0); MCHC 33.6 g/dL (31.0-37.0); MCV 87.7 fL (80.0-100.0); Mean Platelet Volume 6.9; Monocytes # (A) 0.4 k/uL (0-1.0); Monocytes % (A) 6 %; Neutrophils # (A) 4.3 k/uL (1.3-7.7); Neutrophils % (A) 70 %; Platelet Count 300 k/uL (150-450); RBC 5.22 m/uL (3.80-5.40); RDW 13.5 % (11.5-15.5); WBC 6.2 k/uL (3.8-10.6)
[2019-05-06 12:44] LABS: ALT 26 U/L (9-52); AST 19 U/L (14-36); Albumin 4.5 g/dL (3.5-5.0); Alkaline Phosphatase 48 U/L (38-126); Anion Gap 7 mmol/L; Blood Urea Nitrogen 17 mg/dL (7-17); Calcium 9.6 mg/dL (8.4-10.2); Carbon Dioxide 26 mmol/L (22-30); Chloride 106 mmol/L (98-107); Glucose 94 mg/dL (74-99); Magnesium 2.3 mg/dL (1.6-2.3); Potassium 4.2 mmol/L (3.5-5.1); Sodium 139 mmol/L (137-145); Total Bilirubin 0.6 mg/dL (0.2-1.3)
[2019-05-06 12:50] LABS: D-Dimer 0.34 mg/L FEU (<0.60); Partial Thromboplastin Time 23.6 sec (22.0-30.0); Prothrombin Time 10.4 sec (9.0-12.0)
--- NOTE | 2019-05-06 13:03 | XR ---
EXAMINATION TYPE: XR chest 2V DATE OF EXAM: 05/06/2019 COMPARISON: 05/24/2018 HISTORY: Chest pain TECHNIQUE: Frontal and lateral views of the chest are obtained. FINDINGS: There is no focal air space opacity, pleural effusion, or pneumothorax seen. The cardiac silhouette size is within normal limits. . Minimal degenerative changes the spine are seen. The osse ous structures are intact. IMPRESSION: No acute cardiopulmonary process.
--- NOTE | 2019-05-06 13:04 | XR ---
EXAMINATION TYPE: XR thoracic spine 2V DATE OF EXAM: 05/06/2019 CLINICAL HISTORY: Back pain today TECHNIQUE: Frontal, lateral, and swimmer's view of thoracic spine are obtained. COMPARISON: None. FINDINGS: Thoracic spine show satisfactory alignment without evidence of acute fracture or dislocatio n. Vertebral body heights and disc space heights are preserved. Small anterior osteophytes are seen at multiple levels within the thoracic spine. Findings also seen in the lower cervical spine is visua lized. Visualized ribs are unremarkable. IMPRESSION: No acute fracture or malalignment is seen in the thoracic spine. Mild multilevel degener ative disc disease of the thoracic spine.
[2019-05-06 13:11] VITALS: RESP 16
[2019-05-06 13:12] LABS: Creatine Kinase MB <0.2 ng/mL (0.0-2.4); Troponin I <0.012 ng/mL (0.000-0.034)
[2019-05-06 14:01] VITALS: BP 152/98; PULSE 70; TEMP 98.6
== END 2019-05-06 14:01 | disposition home or self-care (01) ==
LOC: EC 11:29
DX: M54.6 Pain in thoracic spine (principal); M79.602 Pain in left arm; F41.9 Anxiety disorder, unspecified; Z87.891 Personal history of nicotine dependence; Z79.899 Other long term (current) drug therapy; Z88.2 Allergy status to sulfonamides; Z88.3 Allergy status to other anti-infective agents; Z91.010 Allergy to peanuts
CPT/HCPCS: 36415; 93005; 85379; 80053; 82553; 83735; 84484; 85025; 85610; 85730; 72070; 71046; 99284; 96374; 96375; J2405; J1885

== ENCOUNTER 2020-04-08 18:24 | Emergency (ER) | payer MEDICAID ==
[2020-04-08 18:32] VITALS: RESP 20
[2020-04-08] MEDS ORDERED: ONDANSETRON 4 MG/2 ML VIAL IVP STA (18:40)
[2020-04-08] MEDS ORDERED: HYDROmorphone 0.5 MG/0.5 ML SYRINGE IVP STA (18:40)
[2020-04-08] MEDS ORDERED: PANTOPRAZOLE 40 MG/10 ML VIAL IVP STA (18:40)
[2020-04-08] MEDS ORDERED: SODIUM CHLORIDE 0.9% 500 ML 500 ML IV STA (18:40)
[2020-04-08 18:56] LABS: Appearance,Urine Clear (Clear); Bilirubin,Urine Negative (Negative); Blood,Urine Negative (Negative); Color,Urine Light Yellow; Glucose,Urine (UA) Negative (Negative); Ketones,Urine Trace (Negative); Leukocyte Esterase,Urine Negative (Negative); Nitrite,Urine Negative (Negative); Protein,Urine Negative (Negative); Specific Gravity,Urine 1.015 (1.001-1.035); Urobilinogen,Urine <2.0 mg/dL (<2.0)
--- NOTE | 2020-04-08 18:59 | ED ---
General Adult HPI - General Chief complaint: Abdominal Pain Stated complaint: Abd Pain, Vomiting Time Seen by Provider: 04/08/20 18:36 Source: patient, RN notes reviewed, old records reviewed Mode of arrival: ambulatory Limitations: no limitations - History of Present Illness Initial comments: 49-year-old female presented for evaluation of left-sided abdominal pain. Pain is in the left upper quadrant and left flank. It began suddenly approximately 2 hours prior to arrival. Patient had eaten some take out prior to the onset of her symptoms. She had several episodes of vomiting. She had a normal bowel movement earlier today. No fever or chills. Pain is quite severe. No dysuria or hematuria. No previous history of kidney stones. No central chest pain. No history of CAD. - Related Data Home Medications Medication Instructions Recorded Confirmed LORazepam [Ativan] 1 mg PO DAILY PRN 06/08/14 05/24/18 Albuterol Inhaler (Mhu) [Ventolin 1 - 2 puff INHALATION RT-Q6H PRN 12/26/15 05/24/18 Hfa Inhaler (Mhu)] Nicotine Polacrilex [Quit 2] 2 mg PO Q4H PRN 01/25/16 05/24/18 Nitroglycerin Sl Tabs [Nitrostat] 0.4 mg SUBLINGUAL Q5M PRN 09/11/17 05/24/18 Aspirin EC [Ecotrin Low Dose] 81 mg PO DAILY 05/24/18 05/24/18 [place]-3 Fatty Acids/Fish Oil [Fish 1 cap PO DAILY 05/24/18 05/24/18 Oil 1,000 mg Softgel] Allergies Allergy/AdvReac Type Severity Reaction Status Date / Time oseltamivir phosphate Allergy Rash/Hives Verified 04/08/20 18:32 [From Tamiflu] peanut Allergy Rash/Hives Verified 04/08/20 18:32 Sulfa (Sulfonamide Allergy Rash/Hives Verified 04/08/20 18:32 Antibiotics) Review of Systems ROS Statement: Those systems with pertinent positive or pertinent negative responses have been documented in the HPI. ROS Other: All systems not noted in ROS Statement are negative. Past Medical History Past Medical History: GERD/Reflux, Pneumonia Additional Past Medical History / Comment(s): scoliosis, hospitalized for pneumonia-klebsiella end of Jul., mitral valve regurgitation History of Any Multi-Drug Resistant Organisms: None Reported Past Surgical History: Adenoidectomy, Tonsillectomy, Tubal Ligation, Uterine Ablation Additional Past Surgical History / Comment(s): oral Past Anesthesia/Blood Transfusion Reactions: No Reported Reaction Additional Past Anesthesia/Blood Transfusion Reaction / Comment(s): no blood transfusions Past Psychological History: Anxiety Smoking Status: Former smoker Past Alcohol Use History: Occasional Past Drug Use History: None Reported - Past Family History Mother Family Medical History: Congestive Heart Failure (CHF), Diabetes Mellitus, Hypertension Father Family Medical History: Cancer, Diabetes Mellitus Additional Family Medical History / Comment(s): KIDNEY CANCER. General Exam Limitations: no limitations General appearance: alert, in no apparent distress Head exam: Present: atraumatic, normocephalic Eye exam: Present: normal appearance, PERRL ENT exam: Present: normal exam Neck exam: Present: normal inspection. Absent: tenderness, meningismus Respiratory exam: Present: normal lung sounds bilaterally. Absent: respiratory distress, wheezes Cardiovascular Exam: Present: regular rate, normal rhythm GI/Abdominal exam: Present: soft, tenderness. Absent: distended, guarding, rebound Extremities exam: Present: normal inspection Back exam: Present: CVA tenderness (L) Neurological exam: Present: alert, oriented X3, CN II-XII intact. Absent: motor sensory deficit Psychiatric exam: Present: normal affect, normal mood Skin exam: Present: warm, dry, intact. Absent: cyanosis, diaphoretic Course Vital Signs 04/08/20 04/08/20 18:30 19:04 Temperature 98.7 F Pulse Rate 95 Pulse Rate [ 92 [place] [employer]mer Automatic ] Respiratory 20 Rate Blood Pressure 153/89 O2 Sat by Pulse 99 Oximetry EKG Findings - EKG Comments: EKG Findings:: EKG: Normal sinus rhythm, rate of 90, AK interval 134, QRS duration 78, QTC 428, no ST segment elevation, T-wave inversion in lead 3. Medical Decision Making - Medical Decision Making 49-year-old female presenting with left upper quadrant pain after eating several episodes of vomiting. Patient has some left upper quadrant tenderness to palpation as well as left CVA tenderness. Workup was initiated as well as symptomatic treatment in the emergency partner. X-ray negative for obstruction or intraperitoneal free air. She has normal white blood cell count, mildly elevated hemoglobin. Normal CMP, normal liver enzymes. Negative troponin. Nonischemic EKG. CT showing possible enteritis and hepatic steatosis with no acute findings otherwise. After symptom and treatment patient is feeling much better symptoms . Resolved. Patient wishes to manage her symptoms at home and will return with worsening symptoms or new concerns. - Lab Data Result diagrams: 04/08/20 18:45 04/08/20 18:45 Lab Results 04/08/20 04/08/20 04/08/20 Range/Units 18:45 18:45 18:45 WBC 5.2 (3.8-10.6) k/uL RBC 5.26 (3.80-5.40) m/uL Hgb 16.4 H (11.4-16.0) gm/dL Hct 47.8 H (34.0-46.0) % MCV 91.0 (80.0-100.0) fL MCH 31.2 (25.0-35.0) pg MCHC 34.3 (31.0-37.0) g/dL RDW 12.9 (11.5-15.5) % Plt Count 322 (150-450) k/uL Neutrophils % 70 % Lymphocytes % 20 % Monocytes % 6 % Eosinophils % 2 % Basophils % 0 % Neutrophils # 3.6 (1.3-7.7) k/uL Lymphocytes # 1.0 (1.0-4.8) k/uL Monocytes # 0.3 (0-1.0) k/uL Eosinophils # 0.1 (0-0.7) k/uL Basophils # 0.0 (0-0.2) k/uL PT 10.5 (9.0-12.0) sec INR 1.0 (<1.2) APTT 23.4 (22.0-30.0) sec Sodium 138 (137-145) mmol/L Potassium 4.4 (3.5-5.1) mmol/L Chloride 104 (98-107) mmol/L Carbon Dioxide 21 L (22-30) mmol/L Anion Gap 13 mmol/L BUN 15 (7-17) mg/dL Creatinine 0.75 (0.52-1.04) mg/dL Est GFR (CKD-EPI)AfAm >90 (>60 ml/min/1.73 sqM) Est GFR (CKD-EPI)NonAf >90 (>60 ml/min/1.73 sqM) Glucose 125 H (74-99) mg/dL Plasma Lactic Acid Cresencio (0.7-2.0) mmol/L Calcium 9.6 (8.4-10.2) mg/dL Total Bilirubin 0.4 (0.2-1.3) mg/dL AST 24 (14-36) U/L ALT 26 (4-34) U/L Alkaline Phosphatase 58 (38-126) U/L Troponin I (0.000-0.034) ng/mL Total Protein 7.7 (6.3-8.2) g/dL Albumin 4.8 (3.5-5.0) g/dL Amylase 41 (30-110) U/L Lipase 73 (23-300) U/L Urine Color Urine Appearance (Clear) Urine pH (5.0-8.0) Ur Specific [place] (1.001-1.035) Urine Protein (Negative) Urine Glucose (UA) (Negative) Urine Ketones (Negative) Urine Blood (Negative) Urine Nitrite (Negative) Urine Bilirubin (Negative) Urine Urobilinogen (<2.0) mg/dL Ur Leukocyte Esterase (Negative) Coronavirus (PCR) (Not Detectd) 04/08/20 04/08/20 04/08/20 Range/Units 18:45 18:45 18:45 WBC (3.8-10.6) k/uL RBC (3.80-5.40) m/uL Hgb (11.4-16.0) gm/dL Hct (34.0-46.0) % MCV (80.0-100.0) fL MCH (25.0-35.0) pg MCHC (31.0-37.0) g/dL RDW (11.5-15.5) % Plt Count (150-450) k/uL Neutrophils % % Lymphocytes % % Monocytes % % Eosinophils % % Basophils % % Neutrophils # (1.3-7.7) k/uL Lymphocytes # (1.0-4.8) k/uL Monocytes # (0-1.0) k/uL Eosinophils # (0-0.7) k/uL Basophils # (0-0.2) k/uL PT (9.0-12.0) sec INR (<1.2) APTT (22.0-30.0) sec Sodium (137-145) mmol/L Potassium (3.5-5.1) mmol/L Chloride (98-107) mmol/L Carbon Dioxide (22-30) mmol/L Anion Gap mmol/L BUN (7-17) mg/dL Creatinine (0.52-1.04) mg/dL Est GFR (CKD-EPI)AfAm (>60 ml/min/1.73 sqM) Est GFR (CKD-EPI)NonAf (>60 ml/min/1.73 sqM) Glucose (74-99) mg/dL Plasma Lactic Acid Cresencio 1.8 (0.7-2.0) mmol/L Calcium (8.4-10.2) mg/dL Total Bilirubin (0.2-1.3) mg/dL AST (14-36) U/L ALT (4-34) U/L Alkaline Phosphatase (38-126) U/L Troponin I <0.012 (0.000-0.034) ng/mL Total Protein (6.3-8.2) g/dL Albumin (3.5-5.0) g/dL Amylase (30-110) U/L Lipase (23-300) U/L Urine Color Light Yellow Urine Appearance Clear (Clear) Urine pH 7.0 (5.0-8.0) Ur Specific [place] 1.015 (1.001-1.035) Urine Protein Negative (Negative) Urine Glucose (UA) Negative (Negative) Urine Ketones Trace H (Negative) Urine Blood Negative (Negative) Urine Nitrite Negative (Negative) Urine Bilirubin Negative (Negative) Urine Urobilinogen <2.0 (<2.0) mg/dL Ur Leukocyte Esterase Negative (Negative) Coronavirus (PCR) (Not Detectd) 04/08/20 Range/Units 20:35 WBC (3.8-10.6) k/uL RBC (3.80-5.40) m/uL Hgb (11.4-16.0) gm/dL Hct (34.0-46.0) % MCV (80.0-100.0) fL MCH (25.0-35.0) pg MCHC (31.0-37.0) g/dL RDW (11.5-15.5) % Plt Count (150-450) k/uL Neutrophils % % Lymphocytes % % Monocytes % % Eosinophils % % Basophils % % Neutrophils # (1.3-7.7) k/uL Lymphocytes # (1.0-4.8) k/uL Monocytes # (0-1.0) k/uL Eosinophils # (0-0.7) k/uL Basophils # (0-0.2) k/uL PT (9.0-12.0) sec INR (<1.2) APTT (22.0-30.0) sec Sodium (137-145) mmol/L Potassium (3.5-5.1) mmol/L Chloride (98-107) mmol/L Carbon Dioxide (22-30) mmol/L Anion Gap mmol/L BUN (7-17) mg/dL Creatinine (0.52-1.04) mg/dL Est GFR (CKD-EPI)AfAm (>60 ml/min/1.73 sqM) Est GFR (CKD-EPI)NonAf (>60 ml/min/1.73 sqM) Glucose (74-99) mg/dL Plasma Lactic Acid Cresencio (0.7-2.0) mmol/L Calcium (8.4-10.2) mg/dL Total Bilirubin (0.2-1.3) mg/dL AST (14-36) U/L ALT (4-34) U/L Alkaline Phosphatase (38-126) U/L Troponin I (0.000-0.034) ng/mL Total Protein (6.3-8.2) g/dL Albumin (3.5-5.0) g/dL Amylase (30-110) U/L Lipase (23-300) U/L Urine Color Urine Appearance (Clear) Urine pH (5.0-8.0) Ur Specific [place] (1.001-1.035) Urine Protein (Negative) Urine Glucose (UA) (Negative) Urine Ketones (Negative) Urine Blood (Negative) Urine Nitrite (Negative) Urine Bilirubin (Negative) Urine Urobilinogen (<2.0) mg/dL Ur Leukocyte Esterase (Negative) Coronavirus (PCR) Not Detected (Not Detectd) Disposition Clinical Impression: Abdominal pain Disposition: HOME SELF-CARE Condition: Good Instructions (If sedation given, give patient instructions): Abdominal Pain (ED) Is patient prescribed a controlled substance at d/c from ED?: No Referrals: Raheem Kessler MD [Primary Care Provider] - 1-2 days Time of Disposition: 21:18
[2020-04-08 19:04] LABS: Partial Thromboplastin Time 23.4 sec (22.0-30.0); Prothrombin Time 10.5 sec (9.0-12.0)
[2020-04-08 19:05] LABS: ALT 26 U/L (4-34); AST 24 U/L (14-36); African American GFR (CKD) >90 (>60 ml/min/1.73 sqM); Albumin 4.8 g/dL (3.5-5.0); Alkaline Phosphatase 58 U/L (38-126); Amylase 41 U/L (30-110); Anion Gap 13 mmol/L; Blood Urea Nitrogen 15 mg/dL (7-17); Calcium 9.6 mg/dL (8.4-10.2); Carbon Dioxide 21 mmol/L (22-30); Chloride 104 mmol/L (98-107); Glucose 125 mg/dL (74-99); Non-African American GFR(CKD) >90 (>60 ml/min/1.73 sqM); Potassium 4.4 mmol/L (3.5-5.1); Sodium 138 mmol/L (137-145); Total Bilirubin 0.4 mg/dL (0.2-1.3); Total Protein 7.7 g/dL (6.3-8.2)
[2020-04-08 19:24] LABS: Basophils % (A) 0 %; Eosinophils # (A) 0.1 k/uL (0-0.7); Eosinophils % (A) 2 %; HCT 47.8 % (34.0-46.0); HGB 16.4 gm/dL (11.4-16.0); Lymphocytes % (A) 20 %; MCH 31.2 pg (25.0-35.0); MCHC 34.3 g/dL (31.0-37.0); Mean Platelet Volume 7.2; Monocytes # (A) 0.3 k/uL (0-1.0); Monocytes % (A) 6 %; Neutrophils # (A) 3.6 k/uL (1.3-7.7); Neutrophils % (A) 70 %; Platelet Count 322 k/uL (150-450); RBC 5.26 m/uL (3.80-5.40); RDW 12.9 % (11.5-15.5); WBC 5.2 k/uL (3.8-10.6)
--- NOTE | 2020-04-08 20:14 | XR ---
KUB HISTORY: Abdomen pain Frontal KUB submitted on [address] CT scan same date Lung bases are clear. There is no evident bowel obstruction or pneumoperitoneum. Degenerative disc ch anges are present in the lumbar spine. No pathologic calcification evident. IMPRESSION: No acute abnormality.
--- NOTE | 2020-04-08 20:25 | CT ---
EXAMINATION TYPE: CT abdomen pelvis w con DATE OF EXAM: 04/08/2020 COMPARISON: CT dated 04/04/2013 HISTORY: Left flank and left upper quadrant pain with nausea and vomiting. CT DLP: 1239.7 mGycm Automated exposure control for dose reduction was used. TECHNIQUE: Helical acquisition of images from the lung bases through the pelvis have been completed. CONTRAST: Performed without Oral Contrast and with IV Contrast, patient injected with 100 mL of Isovue 300. FINDINGS: Small umbilical hernia contains fat. LUNG BASES: No significant abnormality is appreciated. AORTA: No significant abnormality is appreciated. LIVER/GB: Low-attenuation within the liver may be due to hepatic steatosis, gallbladder is normal PANCREAS: No significant abnormality is seen. SPLEEN: No significant abnormality is seen. ADRENALS: No significant abnormality is seen. KIDNEYS: No significant abnormality is seen. REPRODUCTIVE ORGANS: No significant abnormality is seen BOWEL: Fluid-filled loops of small bowel are noted. FREE AIR: No Free Air visible. ASCITES: None visible. PELVIC ADENOPATHY: None visualized. RETROPERITONEAL ADENOPATHY: No Retroperitoneal Adenopathy visible. URINARY BLADDER: No significant abnormality is seen. OSSEOUS STRUCTURES: No significant abnormality is seen. IMPRESSION: CORRELATE FOR POSSIBLE ENTERITIS. HEPATIC STEATOSIS. ADDITIONAL FINDINGS ABOVE.
[2020-04-08] MEDS ORDERED: METOCLOPRAMIDE 5 MG/ML 2 ML VIAL IVP STA (20:36)
[2020-04-08 21:27] VITALS: BP 148/88; PULSE 97; TEMP 98.2
== END 2020-04-08 21:25 | disposition home or self-care (01) ==
LOC: EC 18:24
DX: R10.12 Left upper quadrant pain (principal); R11.10 Vomiting, unspecified; Z20.828 Contact with and (suspected) exposure to other viral communicable diseases; F41.9 Anxiety disorder, unspecified; Z79.82 Long term (current) use of aspirin; Z88.2 Allergy status to sulfonamides; Z88.8 Allergy status to other drugs, medicaments and biological substances; Z91.010 Allergy to peanuts; Z87.891 Personal history of nicotine dependence
CPT/HCPCS: 36415; 93005; 80053; 82150; 83605; 83690; 84484; 85025; 85610; 85730; 81003; 87635; 74018; 74177; 99285; 96374; 96375 ×3; 96361; J2765; J2405; C9113; J1170; Q9967; 99284

== ENCOUNTER 2020-06-09 05:56 | Emergency (ER) | payer MEDICAID ==
[2020-06-09 06:02] VITALS: TEMP 98.1
[2020-06-09] MEDS ORDERED: SODIUM CHLORIDE 0.9% 1,000 ML IV STA (06:27)
[2020-06-09] MEDS ORDERED: KETOROLAC 30 MG/ML 1 ML VIAL IVP STA (06:27)
[2020-06-09 06:44] LABS: Basophils % (A) 1 %; Eosinophils # (A) 0.2 k/uL (0-0.7); Eosinophils % (A) 3 %; HCT 44.1 % (34.0-46.0); HGB 15.5 gm/dL (11.4-16.0); Lymphocytes # (A) 1.5 k/uL (1.0-4.8); Lymphocytes % (A) 23 %; MCHC 35.2 g/dL (31.0-37.0); MCV 90.8 fL (80.0-100.0); Mean Platelet Volume 7.3; Monocytes # (A) 0.3 k/uL (0-1.0); Monocytes % (A) 5 %; Neutrophils # (A) 4.2 k/uL (1.3-7.7); Neutrophils % (A) 67 %; Platelet Count 277 k/uL (150-450); RBC 4.86 m/uL (3.80-5.40); RDW 12.7 % (11.5-15.5); WBC 6.3 k/uL (3.8-10.6)
[2020-06-09 06:52] LABS: ALT 22 U/L (4-34); AST 22 U/L (14-36); African American GFR (CKD) >90 (>60 ml/min/1.73 sqM); Albumin 4.4 g/dL (3.5-5.0); Alkaline Phosphatase 69 U/L (38-126); Anion Gap 9 mmol/L; Blood Urea Nitrogen 16 mg/dL (7-17); Calcium 9.9 mg/dL (8.4-10.2); Carbon Dioxide 25 mmol/L (22-30); Chloride 104 mmol/L (98-107); Glucose 132 mg/dL (74-99); Non-African American GFR(CKD) 89 (>60 ml/min/1.73 sqM); Potassium 4.1 mmol/L (3.5-5.1); Sodium 138 mmol/L (137-145); Total Bilirubin 0.5 mg/dL (0.2-1.3); Total Protein 6.7 g/dL (6.3-8.2)
[2020-06-09 07:03] LABS: D-Dimer 0.32 mg/L FEU (<0.60); INR 0.9 (<1.2); Partial Thromboplastin Time 22.6 sec (22.0-30.0); Prothrombin Time 9.8 sec (9.0-12.0)
--- NOTE | 2020-06-09 07:06 | XR ---
EXAM: XR Chest, 2 Views CLINICAL HISTORY: ITS.REASON XR Reason: difficulty breathing TECHNIQUE: Frontal and lateral views of the chest. COMPARISON: No relevant prior studies available. FINDINGS: Lungs: Unremarkable. No consolidation. Pleural space: Unremarkable. No pneumothorax. Heart: Unremarkable. No cardiomegaly. Mediastinum: Unremarkable. Bones/joints: Unremarkable. IMPRESSION: Normal chest x-rays.
--- NOTE | 2020-06-09 07:13 | ED ---
SOB HPI - General Chief Complaint: Shortness of Breath Stated Complaint: SOB,cough Time Seen by Provider: 06/09/20 06:07 Source: patient, RN notes reviewed Mode of arrival: ambulatory Limitations: no limitations - History of Present Illness Initial Comments: This a 49-year-old female presents emergency Department with chief complaint of shortness breath, back spasms. Patient states that started 2 days ago in which she felt some tightness in her thoracic muscles. She states that her stated deep breath and she states she becomes very anxious positive for short of breath. She does admit that she has a slightly productive cough and difficulty with her seasonal ALLERGIES. Patient has no anterior chest pain or palpitations. 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 Patient denies any fevers, chills, headache or dizziness. - Related Data Home Medications Medication Instructions Recorded Confirmed LORazepam [Ativan] 1 mg PO DAILY PRN 06/08/14 05/24/18 Albuterol Inhaler (Mhu) [Ventolin 1 - 2 puff INHALATION RT-Q6H PRN 12/26/15 05/24/18 Hfa Inhaler (Mhu)] Nicotine Polacrilex [Quit 2] 2 mg PO Q4H PRN 01/25/16 05/24/18 Nitroglycerin Sl Tabs [Nitrostat] 0.4 mg SUBLINGUAL Q5M PRN 09/11/17 05/24/18 Aspirin EC [Ecotrin Low Dose] 81 mg PO DAILY 05/24/18 05/24/18 [place]-3 Fatty Acids/Fish Oil [Fish 1 cap PO DAILY 05/24/18 05/24/18 Oil 1,000 mg Softgel] Allergies Allergy/AdvReac Type Severity Reaction Status Date / Time oseltamivir phosphate Allergy Rash/Hives Verified 06/09/20 06:02 [From Tamiflu] peanut Allergy Rash/Hives Verified 06/09/20 06:02 Sulfa (Sulfonamide Allergy Rash/Hives Verified 06/09/20 06:02 Antibiotics) Review of Systems ROS Statement: Those systems with pertinent positive or pertinent negative responses have been documented in the HPI. ROS Other: All systems not noted in ROS Statement are negative. Past Medical History Past Medical History: GERD/Reflux, Pneumonia Additional Past Medical History / Comment(s): scoliosis, hospitalized for pneumonia-klebsiella end of Sept., mitral valve regurgitation History of Any Multi-Drug Resistant Organisms: None Reported Past Surgical History: Adenoidectomy, Tonsillectomy, Tubal Ligation, Uterine Ablation Additional Past Surgical History / Comment(s): oral Past Anesthesia/Blood Transfusion Reactions: No Reported Reaction Additional Past Anesthesia/Blood Transfusion Reaction / Comment(s): no blood transfusions Past Psychological History: Anxiety Smoking Status: Former smoker Past Alcohol Use History: Occasional Past Drug Use History: None Reported - Past Family History Mother Family Medical History: Congestive Heart Failure (CHF), Diabetes Mellitus, Hypertension Father Family Medical History: Cancer, Diabetes Mellitus Additional Family Medical History / Comment(s): KIDNEY CANCER. General Exam Limitations: no limitations General appearance: alert, in no apparent distress Head exam: Present: atraumatic, normocephalic, normal inspection Eye exam: Present: normal appearance, PERRL, EOMI. Absent: scleral icterus, conjunctival injection, periorbital swelling ENT exam: Present: normal exam, normal oropharynx, mucous membranes moist Neck exam: Present: normal inspection, full ROM. Absent: tenderness, meningismus, lymphadenopathy Respiratory exam: Present: normal lung sounds bilaterally. Absent: respiratory distress, wheezes, rales, rhonchi, stridor Cardiovascular Exam: Present: regular rate, normal rhythm, normal heart sounds. Absent: systolic murmur, diastolic murmur, rubs, gallop, clicks Back exam: Present: normal inspection, full ROM, tenderness, muscle spasm, paraspinal tenderness. Absent: vertebral tenderness Neurological exam: Present: alert, oriented X3, CN II-XII intact Skin exam: Present: warm, dry, intact, normal color. Absent: rash Course Vital Signs 06/09/20 06/09/20 06:00 06:06 Temperature 98.1 F Pulse Rate 81 Respiratory 18 18 Rate Blood Pressure 157/76 O2 Sat by Pulse 98 Oximetry - Reevaluation(s) Reevaluation #1: 06/09/20 08:28 Patient reevaluated and updated and results. D-dimer, troponin, labs essentially unremarkable. Patient does feel improved after Toradol was also given Norflex. Patient has no clinical signs for infection has no chest pain. Medical Decision Making - Medical Decision Making 49-year-old female present for back spasms, cough. Patient had complete workup including CBC, CMP, troponin, d-dimer, EKG and chest x-ray with no acute findings. She did have improvement after Toradol. Patient feels comfortable discharge there is a pending Covid test. Patient will follow with piece dyeing machine tender return for any worsening symptoms. - Lab Data Result diagrams: 06/09/20 06:13 06/09/20 06:13 Lab Results 06/09/20 06/09/20 06/09/20 Range/Units 06:13 06:13 06:13 WBC 6.3 (3.8-10.6) k/uL RBC 4.86 (3.80-5.40) m/uL Hgb 15.5 (11.4-16.0) gm/dL Hct 44.1 (34.0-46.0) % MCV 90.8 (80.0-100.0) fL MCH 32.0 (25.0-35.0) pg MCHC 35.2 (31.0-37.0) g/dL RDW 12.7 (11.5-15.5) % Plt Count 277 (150-450) k/uL Neutrophils % 67 % Lymphocytes % 23 % Monocytes % 5 % Eosinophils % 3 % Basophils % 1 % Neutrophils # 4.2 (1.3-7.7) k/uL Lymphocytes # 1.5 (1.0-4.8) k/uL Monocytes # 0.3 (0-1.0) k/uL Eosinophils # 0.2 (0-0.7) k/uL Basophils # 0.0 (0-0.2) k/uL PT 9.8 (9.0-12.0) sec INR 0.9 (<1.2) APTT 22.6 (22.0-30.0) sec D-Dimer 0.32 (<0.60) mg/L FEU Sodium 138 (137-145) mmol/L Potassium 4.1 (3.5-5.1) mmol/L Chloride 104 (98-107) mmol/L Carbon Dioxide 25 (22-30) mmol/L Anion Gap 9 mmol/L BUN 16 (7-17) mg/dL Creatinine 0.78 (0.52-1.04) mg/dL Est GFR (CKD-EPI)AfAm >90 (>60 ml/min/1.73 sqM) Est GFR (CKD-EPI)NonAf 89 (>60 ml/min/1.73 sqM) Glucose 132 H (74-99) mg/dL Plasma Lactic Acid Cresencio (0.7-2.0) mmol/L Calcium 9.9 (8.4-10.2) mg/dL Magnesium 2.0 (1.6-2.3) mg/dL Total Bilirubin 0.5 (0.2-1.3) mg/dL AST 22 (14-36) U/L ALT 22 (4-34) U/L Alkaline Phosphatase 69 (38-126) U/L Troponin I (0.000-0.034) ng/mL Total Protein 6.7 (6.3-8.2) g/dL Albumin 4.4 (3.5-5.0) g/dL 06/09/20 06/09/20 Range/Units 06:13 06:13 WBC (3.8-10.6) k/uL RBC (3.80-5.40) m/uL Hgb (11.4-16.0) gm/dL Hct (34.0-46.0) % MCV (80.0-100.0) fL MCH (25.0-35.0) pg MCHC (31.0-37.0) g/dL RDW (11.5-15.5) % Plt Count (150-450) k/uL Neutrophils % % Lymphocytes % % Monocytes % % Eosinophils % % Basophils % % Neutrophils # (1.3-7.7) k/uL Lymphocytes # (1.0-4.8) k/uL Monocytes # (0-1.0) k/uL Eosinophils # (0-0.7) k/uL Basophils # (0-0.2) k/uL PT (9.0-12.0) sec INR (<1.2) APTT (22.0-30.0) sec D-Dimer (<0.60) mg/L FEU Sodium (137-145) mmol/L Potassium (3.5-5.1) mmol/L Chloride (98-107) mmol/L Carbon Dioxide (22-30) mmol/L Anion Gap mmol/L BUN (7-17) mg/dL Creatinine (0.52-1.04) mg/dL Est GFR (CKD-EPI)AfAm (>60 ml/min/1.73 sqM) Est GFR (CKD-EPI)NonAf (>60 ml/min/1.73 sqM) Glucose (74-99) mg/dL Plasma Lactic Acid Cresencio 1.4 (0.7-2.0) mmol/L Calcium (8.4-10.2) mg/dL Magnesium (1.6-2.3) mg/dL Total Bilirubin (0.2-1.3) mg/dL AST (14-36) U/L ALT (4-34) U/L Alkaline Phosphatase (38-126) U/L Troponin I <0.012 (0.000-0.034) ng/mL Total Protein (6.3-8.2) g/dL Albumin (3.5-5.0) g/dL - EKG Data -: EKG Interpreted by Me EKG Comments: EKG 46:13 normal sinus rhythm rate of 78 ID 140 QRS 82 QT/QTC 392/446 Disposition Clinical Impression: Thoracic back pain, Dyspnea Disposition: HOME SELF-CARE Condition: Stable Instructions (If sedation given, give patient instructions): Back Pain (ED) Additional Instructions: Please follow up on COVID testing. Continue Motrin as directed.Please return to the Emergency Department if symptoms worsen or any other concerns. Is patient prescribed a controlled substance at d/c from ED?: No Referrals: Raheem Kessler MD [Primary Care Provider] - 1-2 days Time of Disposition: 08:30
[2020-06-09] MEDS ORDERED: ORPHENADRINE 30 MG/ML 2 ML VIAL IVP STA (07:38)
[2020-06-09 08:37] VITALS: BP 118/86; PULSE 86; RESP 16
== END 2020-06-09 08:36 | disposition home or self-care (01) ==
LOC: EC 05:56
DX: M54.6 Pain in thoracic spine (principal); R06.00 Dyspnea, unspecified; F41.9 Anxiety disorder, unspecified; Z79.82 Long term (current) use of aspirin; Z88.2 Allergy status to sulfonamides; Z91.010 Allergy to peanuts; Z88.8 Allergy status to other drugs, medicaments and biological substances; Z87.891 Personal history of nicotine dependence
CPT/HCPCS: 36415; 93005; 85379; 80053; 83605; 83735; 84484; 85025; 85610; 85730; 71046; 99285; 96374; 96375; 96361 ×2; U0003; J2360; J1885

== ENCOUNTER → 2020-06-11 | Outpatient (CLI) | payer MEDICAID | END | disposition home or self-care (01) | LOC: LABWHC1 11:50 | PROVIDERS: ATTEND Pediatrics Pediatric Infectious Diseases | DX: Z11.59 Encounter for screening for other viral diseases (principal) | CPT/HCPCS: U0003; C9803 ==

== ENCOUNTER → 2020-10-10 | Outpatient (CLI) | payer MEDICAID ==
--- NOTE | 2020-10-11 07:26 | XR ---
EXAMINATION TYPE: XR ankle complete RT, XR foot complete RT DATE OF EXAM: 10/10/2020 CLINICAL HISTORY: Pain after injury. TECHNIQUE: Frontal, lateral and oblique images of the right ankle and foot are obtained. COMPARISON: Right ankle x-ray May 06, 2016. FINDINGS: There is no acute fracture/dislocation evident in the right ankle. The ankle mortise annette ins within normal limits. There is moderate subcutaneous edema and Soft tissue swelling on current study. Moderate-sized superior and inferior calcaneal spurs are redem onstrated. There is no acute fracture or dislocation evident in the right foot. Hallux valgus positioning first metatarsophalangeal joint. Some flexion in the distal 3rd-5th toes. Mild diffuse subcutaneous edema a nd soft tissue swelling. IMPRESSION: There is no acute fracture or dislocation in the right ankle or foot.
== END | disposition home or self-care (01) ==
LOC: RADXRMAIN 17:51
PROVIDERS: ATTEND Physician Assistant
DX: S93.401A Sprain of unspecified ligament of right ankle, initial encounter (principal)

== ENCOUNTER 2020-11-14 11:30 | Emergency (ER) | payer MEDICAID ==
[2020-11-14 11:47] VITALS: RESP 18
[2020-11-14] MEDS ORDERED: ACETAMINOPHEN TAB 500 MG TAB PO STA (12:24)
[2020-11-14] MEDS ORDERED: ALBUTEROL HFA INHALER INHALATION STA (12:24)
--- NOTE | 2020-11-14 12:50 | ED ---
General Adult HPI - General Chief complaint: Shortness of Breath Stated complaint: Covid+, SOB Time Seen by Provider: 11/14/20 12:00 Source: patient, RN notes reviewed Mode of arrival: ambulatory Limitations: no limitations - History of Present Illness Initial comments: Patient is a pleasant 50-year-old female presenting to the emergency Department with complaints of fever and cough. Onset of symptoms was 4-5 days ago. Patient was tested positive for covid. Patient does have cough with occasional white sputum. Patient does feel slightly short of breath. Patient does have some discomfort of her upper back. Patient is having fever chills and myalgias. Patient is fatigued. Symptoms are waxing and waning. Patient took Tylenol last around 4:30 AM. Patient did go to [facility] and was advised come to the emergency department. Patient was previously described dexamethasone and azithromycin however has yet to start this. Patient does have close family contact also positive. Patient has been taking vitamin C, vitamin D, as well as zinc and melatonin - Related Data Home Medications Medication Instructions Recorded Confirmed Nicotine Polacrilex [Quit 2] 2 mg PO Q4H PRN 01/25/16 11/14/20 Aspirin EC [Ecotrin Low Dose] 81 mg PO DAILY 05/24/18 11/14/20 Wheeler-3 Fatty Acids/Fish Oil [Fish 1 cap PO DAILY 05/24/18 11/14/20 Oil 1,000 mg Softgel] Albuterol Sulfate [Albuterol 2 puff PO RT-Q6H PRN 11/14/20 11/14/20 Sulfate Hfa] [place] Cold 2 tab PO DAILY PRN 11/14/20 11/14/20 Ascorbic Acid [Vitamin C] 1,000 mg PO DAILY 11/14/20 11/14/20 Cholecalciferol (Vitamin D3) 125 mcg PO DAILY 11/14/20 11/14/20 [Vitamin D3] Melatonin 5 mg PO HS 11/14/20 11/14/20 Multivitamins, Thera [Multivitamin 1 tab PO DAILY 11/14/20 11/14/20 (formulary)] Vitamin B Complex 1 cap PO DAILY 11/14/20 11/14/20 Zinc 50 mg PO DAILY 11/14/20 11/14/20 Allergies Allergy/AdvReac Type Severity Reaction Status Date / Time oseltamivir phosphate Allergy Rash/Hives Verified 11/14/20 12:52 [From Tamiflu] peanut Allergy Rash/Hives Verified 11/14/20 12:52 Sulfa (Sulfonamide Allergy Rash/Hives Verified 11/14/20 12:52 Antibiotics) Review of Systems ROS Statement: Those systems with pertinent positive or pertinent negative responses have been documented in the HPI. ROS Other: All systems not noted in ROS Statement are negative. Constitutional: Reports: fever, chills Eyes: Denies: eye pain ENT: Denies: ear pain Respiratory: Reports: cough Endocrine: Reports: fatigue Gastrointestinal: Denies: abdominal pain Genitourinary: Denies: dysuria Musculoskeletal: Reports: as per HPI Skin: Denies: rash Neurological: Denies: confusion Past Medical History Past Medical History: GERD/Reflux, Pneumonia Additional Past Medical History / Comment(s): scoliosis, hospitalized for pneumonia-klebsiella end of Jul., mitral valve regurgitation History of Any Multi-Drug Resistant Organisms: None Reported Past Surgical History: Adenoidectomy, Tonsillectomy, Tubal Ligation, Uterine Ablation Additional Past Surgical History / Comment(s): oral Past Anesthesia/Blood Transfusion Reactions: No Reported Reaction Additional Past Anesthesia/Blood Transfusion Reaction / Comment(s): no blood transfusions Past Psychological History: Anxiety Smoking Status: Former smoker Past Alcohol Use History: None Reported Past Drug Use History: None Reported - Past Family History Mother Family Medical History: Congestive Heart Failure (CHF), Diabetes Mellitus, Hypertension Father Family Medical History: Cancer, Diabetes Mellitus Additional Family Medical History / Comment(s): KIDNEY CANCER. General Exam Limitations: no limitations General appearance: alert, in no apparent distress Head exam: Present: normocephalic Eye exam: Present: normal appearance Respiratory exam: Present: rhonchi (Minimal right base) Cardiovascular Exam: Present: regular rate, normal rhythm Extremities exam: Present: normal inspection. Absent: pedal edema, calf tenderness Neurological exam: Present: alert Psychiatric exam: Present: normal affect, normal mood Skin exam: Present: normal color Course Vital Signs 11/14/20 11/14/20 11:44 14:00 Temperature 99.6 F 98.5 F Pulse Rate 95 Respiratory 18 Rate Blood Pressure 142/76 O2 Sat by Pulse 100 Oximetry EKG Findings - EKG Comments: EKG Findings:: Normal sinus rhythm 84. [place] 136. QRS 90. QT 372. QTC 439. Normal axis. Normal QRS. No acute ST change. Medical Decision Making - Medical Decision Making Patient reevaluated and resting comfortably in bed. Patient updated on results and need for close follow-up. Patient advised to continue current vitamin regimen. - Lab Data Result diagrams: 11/14/20 13:10 11/14/20 13:10 Lab Results 11/14/20 11/14/20 11/14/20 Range/Units 13:10 13:10 13:10 WBC 3.0 L (3.8-10.6) k/uL RBC 5.09 (3.80-5.40) m/uL Hgb 15.5 (11.4-16.0) gm/dL Hct 44.9 (34.0-46.0) % MCV 88.2 (80.0-100.0) fL MCH 30.4 (25.0-35.0) pg MCHC 34.4 (31.0-37.0) g/dL RDW 12.2 (11.5-15.5) % Plt Count 231 (150-450) k/uL MPV 7.0 Neutrophils % 65 % Lymphocytes % 23 % Monocytes % 8 % Eosinophils % 1 % Basophils % 1 % Neutrophils # 2.0 (1.3-7.7) k/uL Lymphocytes # 0.7 L (1.0-4.8) k/uL Monocytes # 0.2 (0-1.0) k/uL Eosinophils # 0.0 (0-0.7) k/uL Basophils # 0.0 (0-0.2) k/uL PT 9.9 (9.0-12.0) sec INR 0.9 (<1.2) APTT 24.1 (22.0-30.0) sec D-Dimer 0.76 H (<0.60) mg/L FEU Sodium 141 (137-145) mmol/L Potassium 4.0 (3.5-5.1) mmol/L Chloride 104 (98-107) mmol/L Carbon Dioxide 29 (22-30) mmol/L Anion Gap 8 mmol/L BUN 9 (7-17) mg/dL Creatinine 0.71 (0.52-1.04) mg/dL Est GFR (CKD-EPI)AfAm >90 (>60 ml/min/1.73 sqM) Est GFR (CKD-EPI)NonAf >90 (>60 ml/min/1.73 sqM) Glucose 114 H (74-99) mg/dL Plasma Lactic Acid Cresencio (0.7-2.0) mmol/L Calcium 9.6 (8.4-10.2) mg/dL Magnesium 2.1 (1.6-2.3) mg/dL Total Bilirubin 0.3 (0.2-1.3) mg/dL AST 29 (14-36) U/L ALT 49 H (4-34) U/L Alkaline Phosphatase 78 (38-126) U/L Lactate Dehydrogenase 471 (313-618) U/L C-Reactive Protein 7.8 (<10.0) mg/L Total Protein 7.4 (6.3-8.2) g/dL Albumin 4.7 (3.5-5.0) g/dL 11/14/20 Range/Units 13:10 WBC (3.8-10.6) k/uL RBC (3.80-5.40) m/uL Hgb (11.4-16.0) gm/dL Hct (34.0-46.0) % MCV (80.0-100.0) fL MCH (25.0-35.0) pg MCHC (31.0-37.0) g/dL RDW (11.5-15.5) % Plt Count (150-450) k/uL MPV Neutrophils % % Lymphocytes % % Monocytes % % Eosinophils % % Basophils % % Neutrophils # (1.3-7.7) k/uL Lymphocytes # (1.0-4.8) k/uL Monocytes # (0-1.0) k/uL Eosinophils # (0-0.7) k/uL Basophils # (0-0.2) k/uL PT (9.0-12.0) sec INR (<1.2) APTT (22.0-30.0) sec D-Dimer (<0.60) mg/L FEU Sodium (137-145) mmol/L Potassium (3.5-5.1) mmol/L Chloride (98-107) mmol/L Carbon Dioxide (22-30) mmol/L Anion Gap mmol/L BUN (7-17) mg/dL Creatinine (0.52-1.04) mg/dL Est GFR (CKD-EPI)AfAm (>60 ml/min/1.73 sqM) Est GFR (CKD-EPI)NonAf (>60 ml/min/1.73 sqM) Glucose (74-99) mg/dL Plasma Lactic Acid Cresencio 1.1 (0.7-2.0) mmol/L Calcium (8.4-10.2) mg/dL Magnesium (1.6-2.3) mg/dL Total Bilirubin (0.2-1.3) mg/dL AST (14-36) U/L ALT (4-34) U/L Alkaline Phosphatase (38-126) U/L Lactate Dehydrogenase (313-618) U/L C-Reactive Protein (<10.0) mg/L Total Protein (6.3-8.2) g/dL Albumin (3.5-5.0) g/dL - Radiology Data Radiology results: report reviewed (Computed tomography scan of the chest negative for pulmonary embolism. There is some areas of groundglass opacity could reflect edema or infiltrate, exclude Covid 19), image reviewed (Chest x- ray shows no acute process) Disposition Clinical Impression: COVID-19 Disposition: HOME SELF-CARE Condition: Stable Instructions (If sedation given, give patient instructions): Pneumonitis (ED) Additional Instructions: Continue current vitamin regimen. Please follow-up with primary care physician in the next couple of days for recheck. Return for difficulty breathing, low pulse ox, vomiting or not tolerating fluids, worsening symptoms or other concerns Is patient prescribed a controlled substance at d/c from ED?: No Referrals: Raheem Kessler MD [Primary Care Provider] - 1-2 days Time of Disposition: 16:25
--- NOTE | 2020-11-14 13:34 | XR ---
EXAMINATION TYPE: XR chest 1V portable DATE OF EXAM: 11/14/2020 HISTORY: Shortness of breath. COMPARISON: 08/23/2020 TECHNIQUE: Single view of the chest is submitted. FINDINGS: Demonstrated are scattered senescent parenchymal change. There is no evidence for focal infiltrate. The heart is stable. Hilar and mediastinal structures are within normal limits. Degenerative changes are seen of the dorsal spine. IMPRESSION: 1. Chronic changes without evidence for acute pulmonary disease.
[2020-11-14] MEDS ORDERED: SODIUM CHLORIDE 0.9% 1,000 ML IV STA (13:38)
[2020-11-14 13:45] LABS: Basophils % (A) 1 %; Eosinophils % (A) 1 %; HCT 44.9 % (34.0-46.0); HGB 15.5 gm/dL (11.4-16.0); Lymphocytes # (A) 0.7 k/uL (1.0-4.8); Lymphocytes % (A) 23 %; MCH 30.4 pg (25.0-35.0); MCHC 34.4 g/dL (31.0-37.0); MCV 88.2 fL (80.0-100.0); Monocytes # (A) 0.2 k/uL (0-1.0); Monocytes % (A) 8 %; Neutrophils % (A) 65 %; Platelet Count 231 k/uL (150-450); RBC 5.09 m/uL (3.80-5.40); RDW 12.2 % (11.5-15.5)
[2020-11-14 13:59] LABS: ALT 49 U/L (4-34); AST 29 U/L (14-36); African American GFR (CKD) >90 (>60 ml/min/1.73 sqM); Albumin 4.7 g/dL (3.5-5.0); Alkaline Phosphatase 78 U/L (38-126); Anion Gap 8 mmol/L; Blood Urea Nitrogen 9 mg/dL (7-17); C Reactive Protein 7.8 mg/L (<10.0); Calcium 9.6 mg/dL (8.4-10.2); Carbon Dioxide 29 mmol/L (22-30); Chloride 104 mmol/L (98-107); Glucose 114 mg/dL (74-99); LDH 471 U/L (313-618); Magnesium 2.1 mg/dL (1.6-2.3); Non-African American GFR(CKD) >90 (>60 ml/min/1.73 sqM); Sodium 141 mmol/L (137-145); Total Bilirubin 0.3 mg/dL (0.2-1.3); Total Protein 7.4 g/dL (6.3-8.2)
[2020-11-14 14:03] LABS: INR 0.9 (<1.2); Partial Thromboplastin Time 24.1 sec (22.0-30.0); Prothrombin Time 9.9 sec (9.0-12.0)
[2020-11-14 14:30] LABS: D-Dimer 0.76 mg/L FEU (<0.60)
--- NOTE | 2020-11-14 15:57 | CT ---
EXAMINATION TYPE: CT angio chest DATE OF EXAM: 11/14/2020 3:42 PM COMPARISON: CTA chest November 14, 2014 HISTORY: dyspnea CT DLP: 300.9 mGycm Automated exposure control for dose reduction was used. CONTRAST: CTA scan of the thorax is performed with IV Contrast, patient injected with 100 mL of Isovue 370, pul monary embolism protocol. MIP images are created and reviewed. FINDINGS: LUNGS: There are multifocal areas of groundglass opacity reticulation bilaterally, for reference to a reas in the periphery of the right upper lobe axial image 37. Additional similar areas right mid lung anteriorly on image 45. There is slightly larger area of involvement in the lingula abutting the fis sure axial image 72. Diminished inspiration on current study. No pleural effusion or pneumothorax is noted. 1MEDIASTINUM: There is satisfactory enhancement of the pulmonary artery and its branches, there is no CT evidence for pulmonary embolism. More prominent bilateral hilar lymph nodes seen on current study . No cardiomegaly or pericardial effusion is seen. Some reflux of contrast into IVC and current hawk dy noted. Satisfactory enhancement of the aorta without aneurysm or dissection. OTHER: No additional significant abnormality is seen. IMPRESSION: No CT evidence for acute pulmonary embolism. Diminished inspiration. Multifocal areas of reticulation and groundglass opacity could reflect early edema and/or infiltrates, correlate to exclu de covid-19 infection.
[2020-11-14 16:32] VITALS: TEMP 98.2
[2020-11-14 16:54] VITALS: BP 124/63; PULSE 70
[2020-11-14 21:53] LABS: Ferritin 233.6 ng/mL (10.0-291.0)
== END 2020-11-14 16:54 | disposition home or self-care (01) ==
LOC: EC 11:30
DX: U07.1 COVID-19 (principal); Z90.89 Acquired absence of other organs; Z88.2 Allergy status to sulfonamides; Z88.8 Allergy status to other drugs, medicaments and biological substances; Z91.010 Allergy to peanuts; Z87.891 Personal history of nicotine dependence
CPT/HCPCS: 36415; 94640; 93005; 85379; 80053; 82728; 83605; 83615; 83735; 85025; 85610; 85730; 86140; 87040; 84145; 71045; 71275; 99285; 96360; Q9967

== ENCOUNTER 2020-11-22 09:12 | Emergency (ER) | payer MEDICAID ==
[2020-11-22 09:31] VITALS: TEMP 98.5
--- NOTE | 2020-11-22 09:44 | ED ---
General Adult HPI - General Chief complaint: Shortness of Breath Stated complaint: SOB Time Seen by Provider: 11/22/20 09:15 Source: patient, RN notes reviewed, old records reviewed Mode of arrival: ambulatory Limitations: no limitations - History of Present Illness Initial comments: This a 50-year-old female presents emergency department with past medical history significant for recent diagnosis of cold. Patient states today she felt good this morning but more recently she started feeling more short of breath and having a little fullness in the right side of her lung. Patient states she has had no fever today. Patient states she was able to ambulate around her back yard this morning without problem. Patient denies any swelling to her calves or leg tenderness. Patient states she was also noticing that her heart was racing. - Related Data Home Medications Medication Instructions Recorded Confirmed Aspirin EC [Ecotrin Low Dose] 81 mg PO DAILY 05/24/18 11/22/20 [place]-3 Fatty Acids/Fish Oil [Fish 1 cap PO DAILY 05/24/18 11/22/20 Oil 1,000 mg Softgel] Albuterol Sulfate [Albuterol 2 puff PO RT-Q6H PRN 11/14/20 11/22/20 Sulfate Hfa] Dexamethasone [Decadron] 6 mg PO DAILY 11/22/20 11/22/20 Multivit-Min/Iron/Folic/Lutein 1 tab PO DAILY 11/22/20 11/22/20 [Centrum Silver Women Tablet] Allergies Allergy/AdvReac Type Severity Reaction Status Date / Time oseltamivir phosphate Allergy Rash/Hives Verified 11/22/20 10:27 [From Tamiflu] peanut Allergy Rash/Hives Verified 11/22/20 10:27 Sulfa (Sulfonamide Allergy Rash/Hives Verified 11/22/20 10:27 Antibiotics) Review of Systems ROS Statement: Those systems with pertinent positive or pertinent negative responses have been documented in the HPI. ROS Other: All systems not noted in ROS Statement are negative. Past Medical History Past Medical History: GERD/Reflux, Pneumonia Additional Past Medical History / Comment(s): scoliosis, hospitalized for pneumonia-klebsiella end of Jul., mitral valve regurgitation History of Any Multi-Drug Resistant Organisms: None Reported Past Surgical History: Adenoidectomy, Tonsillectomy, Tubal Ligation, Uterine Ablation Additional Past Surgical History / Comment(s): oral Past Anesthesia/Blood Transfusion Reactions: No Reported Reaction Additional Past Anesthesia/Blood Transfusion Reaction / Comment(s): no blood transfusions Past Psychological History: Anxiety Smoking Status: Former smoker Past Alcohol Use History: None Reported Past Drug Use History: None Reported - Past Family History Mother Family Medical History: Congestive Heart Failure (CHF), Diabetes Mellitus, Hypertension Father Family Medical History: Cancer, Diabetes Mellitus Additional Family Medical History / Comment(s): KIDNEY CANCER. General Exam - General Exam Comments Initial Comments: GENERAL: Patient is well-developed and well-nourished. Patient is nontoxic and well- hydrated and is in mild distress. ENT: Neck is soft and supple. No significant lymphadenopathy is noted. Oropharynx is clear. Moist mucous membranes. Neck has full range of motion without eliciting any pain. EYES: The sclera were anicteric and conjunctiva were pink and moist. Extraocular movements were intact and pupils were equal round and reactive to light. Eyelids were unremarkable. PULMONARY: Unlabored respirations. Good breath sounds bilaterally. No audible rales rhonchi or wheezing was noted. CARDIOVASCULAR: There is a regular rate and rhythm without any murmurs gallops or rubs. ABDOMEN: Soft and nontender with normal bowel sounds. SKIN: Skin is clear with no lesions or rashes and otherwise unremarkable. NEUROLOGIC: Patient is alert and oriented x3. Cranial nerves II through XII are grossly intact. Motor and sensory are also intact. Normal speech, volume and content. Symmetrical smile. MUSCULOSKELETAL: Normal extremities with adequate strength and full range of motion. No lower extremity swelling or edema. No calf tenderness. LYMPHATICS: No significant lymphadenopathy is noted PSYCHIATRIC: Normal psychiatric evaluation. Limitations: no limitations Course Vital Signs 11/22/20 11/22/20 11/22/20 09:13 09:26 09:27 Temperature 98.5 F Pulse Rate 71 Respiratory 18 18 18 Rate Blood Pressure 168/123 O2 Sat by Pulse 98 Oximetry 11/22/20 11/22/20 11/22/20 09:58 10:06 10:58 Temperature Pulse Rate 75 78 72 Respiratory 18 18 16 Rate Blood Pressure 141/101 130/76 129/82 O2 Sat by Pulse 97 97 100 Oximetry 11/22/20 11:36 Temperature Pulse Rate 71 Respiratory 18 Rate Blood Pressure 119/83 O2 Sat by Pulse 96 Oximetry Medical Decision Making - Medical Decision Making EKG shows normal sinus rhythm at 61 bpm MD interval is on a 34 QRS is 98 QT interval 414 QTC is 416. Patient's EKG shows no ST segment elevation or depression. Chest x-ray shows no acute normalities. - Lab Data Result diagrams: 11/22/20 09:39 11/22/20 09:39 Lab Results 11/22/20 11/22/20 11/22/20 Range/Units 09:39 09:39 09:39 WBC 13.1 H (3.8-10.6) k/uL RBC 5.29 (3.80-5.40) m/uL Hgb 15.9 (11.4-16.0) gm/dL Hct 44.8 (34.0-46.0) % MCV 84.8 (80.0-100.0) fL MCH 30.1 (25.0-35.0) pg MCHC 35.5 (31.0-37.0) g/dL RDW 12.0 (11.5-15.5) % Plt Count 387 (150-450) k/uL MPV 6.7 Neutrophils % 87 % Lymphocytes % 7 % Monocytes % 4 % Eosinophils % 0 % Basophils % 1 % Neutrophils # 11.5 H (1.3-7.7) k/uL Lymphocytes # 1.0 (1.0-4.8) k/uL Monocytes # 0.5 (0-1.0) k/uL Eosinophils # 0.1 (0-0.7) k/uL Basophils # 0.1 (0-0.2) k/uL PT 9.7 (9.0-12.0) sec INR 0.9 (<1.2) APTT 22.5 (22.0-30.0) sec D-Dimer 0.70 H (<0.60) mg/L FEU Sodium 136 L (137-145) mmol/L Potassium 4.2 (3.5-5.1) mmol/L Chloride 102 (98-107) mmol/L Carbon Dioxide 26 (22-30) mmol/L Anion Gap 8 mmol/L BUN 15 (7-17) mg/dL Creatinine 0.66 (0.52-1.04) mg/dL Est GFR (CKD-EPI)AfAm >90 (>60 ml/min/1.73 sqM) Est GFR (CKD-EPI)NonAf >90 (>60 ml/min/1.73 sqM) Glucose 202 H (74-99) mg/dL Calcium 10.3 H (8.4-10.2) mg/dL Magnesium 2.0 (1.6-2.3) mg/dL Total Bilirubin 0.6 (0.2-1.3) mg/dL AST 48 H (14-36) U/L ALT 147 H (4-34) U/L Alkaline Phosphatase 88 (38-126) U/L Lactate Dehydrogenase 484 (313-618) U/L C-Reactive Protein <5.0 (<10.0) mg/L Total Protein 7.3 (6.3-8.2) g/dL Albumin 4.5 (3.5-5.0) g/dL Disposition Clinical Impression: COVID-19 Disposition: HOME SELF-CARE Condition: Good Instructions (If sedation given, give patient instructions): Shortness of Breath (ED) Is patient prescribed a controlled substance at d/c from ED?: No Referrals: Raheem Kessler MD [Primary Care Provider] - 1-2 days Time of Disposition: 11:44
[2020-11-22] MEDS ORDERED: LORazepam 2 MG/ML INJ IV STA (10:01)
[2020-11-22 10:02] LABS: Basophils # (A) 0.1 k/uL (0-0.2); Basophils % (A) 1 %; Eosinophils # (A) 0.1 k/uL (0-0.7); Eosinophils % (A) 0 %; HCT 44.8 % (34.0-46.0); HGB 15.9 gm/dL (11.4-16.0); Lymphocytes % (A) 7 %; MCH 30.1 pg (25.0-35.0); MCHC 35.5 g/dL (31.0-37.0); MCV 84.8 fL (80.0-100.0); Mean Platelet Volume 6.7; Monocytes # (A) 0.5 k/uL (0-1.0); Monocytes % (A) 4 %; Neutrophils # (A) 11.5 k/uL (1.3-7.7); Neutrophils % (A) 87 %; Platelet Count 387 k/uL (150-450); RBC 5.29 m/uL (3.80-5.40); WBC 13.1 k/uL (3.8-10.6)
[2020-11-22 10:14] LABS: ALT 147 U/L (4-34); AST 48 U/L (14-36); African American GFR (CKD) >90 (>60 ml/min/1.73 sqM); Albumin 4.5 g/dL (3.5-5.0); Alkaline Phosphatase 88 U/L (38-126); Anion Gap 8 mmol/L; Blood Urea Nitrogen 15 mg/dL (7-17); C Reactive Protein <5.0 mg/L (<10.0); Calcium 10.3 mg/dL (8.4-10.2); Carbon Dioxide 26 mmol/L (22-30); Chloride 102 mmol/L (98-107); Glucose 202 mg/dL (74-99); LDH 484 U/L (313-618); Non-African American GFR(CKD) >90 (>60 ml/min/1.73 sqM); Potassium 4.2 mmol/L (3.5-5.1); Sodium 136 mmol/L (137-145); Total Bilirubin 0.6 mg/dL (0.2-1.3); Total Protein 7.3 g/dL (6.3-8.2)
[2020-11-22 10:19] LABS: INR 0.9 (<1.2); Partial Thromboplastin Time 22.5 sec (22.0-30.0); Prothrombin Time 9.7 sec (9.0-12.0)
[2020-11-22 10:29] LABS: D-Dimer 0.7 mg/L FEU (<0.60)
--- NOTE | 2020-11-22 10:47 | XR ---
EXAM: XR Chest, 1 View CLINICAL HISTORY: Reason: Suspected COVID-19 pneumonia TECHNIQUE: Frontal view of the chest. COMPARISON: 11/14/20 FINDINGS: Lungs: Normal lung volumes. No definite airspace consolidation. No pulmonary edema. Pleural space: Unremarkable. No pneumothorax. Heart: Unremarkable. No cardiomegaly. Mediastinum: Unremarkable. No mediastinal widening or shift. Bones/joints: No acute osseous abnormality. IMPRESSION: No evidence of acute cardiopulmonary abnormality.
[2020-11-22 11:38] VITALS: BP 119/83; PULSE 71; RESP 18
[2020-11-22 19:11] LABS: Ferritin 318.6 ng/mL (10.0-291.0)
== END 2020-11-22 11:51 | disposition home or self-care (01) ==
LOC: EC 09:12
DX: U07.1 COVID-19 (principal); Z79.82 Long term (current) use of aspirin; Z79.51 Long term (current) use of inhaled steroids; Z88.3 Allergy status to other anti-infective agents; Z91.010 Allergy to peanuts; Z88.2 Allergy status to sulfonamides; Z87.891 Personal history of nicotine dependence
CPT/HCPCS: 36415; 93005; 85379; 80053; 82728; 83615; 83735; 85025; 85610; 85730; 86140; 84145; 71045; 99285; 96374; J2060

== ENCOUNTER 2020-12-05 15:20 | Emergency (ER) | payer MEDICAID ==
[2020-12-05 15:23] VITALS: TEMP 98.3
[2020-12-05] MEDS ORDERED: ALBUTEROL HFA INHALER INHALATION STA (15:54)
[2020-12-05] MEDS ORDERED: SODIUM CHLORIDE 0.9% 1,000 ML IV STA (15:55)
--- NOTE | 2020-12-05 16:01 | ED ---
General Adult HPI - General Chief complaint: Shortness of Breath Stated complaint: SOB Time Seen by Provider: 12/05/20 15:31 Source: patient, RN notes reviewed Mode of arrival: ambulatory Limitations: no limitations - History of Present Illness Initial comments: Patient is a pleasant 60-year-old female coming to emergency department short of breath. Patient was diagnosed with elevated on his lisinopril. Patient was given steroids and listless 1-2 weeks ago. Patient was feeling better and started feeling worse again today. Patient feels mostly clear breath. Mild cough. No fevers. Patient did take Tylenol and inhaler without improvement of symptoms. Pulse ox was 93% at home. No leg pain or leg swelling. - Related Data Home Medications Medication Instructions Recorded Confirmed Aspirin EC [Ecotrin Low Dose] 81 mg PO DAILY 05/24/18 12/05/20 [place]-3 Fatty Acids/Fish Oil [Fish 1 cap PO DAILY 05/24/18 12/05/20 Oil 1,000 mg Softgel] Albuterol Sulfate [Albuterol 2 puff PO RT-Q6H PRN 11/14/20 12/05/20 Sulfate Hfa] Multivit-Min/Iron/Folic/Lutein 1 tab PO DAILY 11/22/20 12/05/20 [Centrum Silver Women Tablet] Acetaminophen [Tylenol] 500 - 1,000 mg PO TID PRN 12/05/20 12/05/20 Ibuprofen [Motrin Ib] 200 - 800 mg PO Q8H PRN 12/05/20 12/05/20 predniSONE 30 mg PO ONCE PRN 12/05/20 12/05/20 Previous Rx's Medication Instructions Recorded Cyclobenzaprine [Flexeril] 10 mg PO TID PRN #12 tablet 12/05/20 Dexamethasone [Decadron] 6 mg PO DAILY #4 tablet 12/05/20 Allergies Allergy/AdvReac Type Severity Reaction Status Date / Time oseltamivir phosphate Allergy Rash/Hives Verified 12/05/20 16:43 [From Tamiflu] peanut Allergy Rash/Hives Verified 12/05/20 16:43 Sulfa (Sulfonamide Allergy Rash/Hives Verified 12/05/20 16:43 Antibiotics) Review of Systems ROS Statement: Those systems with pertinent positive or pertinent negative responses have been documented in the HPI. ROS Other: All systems not noted in ROS Statement are negative. Constitutional: Denies: fever Eyes: Denies: eye pain ENT: Denies: ear pain Respiratory: Reports: cough, dyspnea Cardiovascular: Denies: chest pain Endocrine: Reports: fatigue Gastrointestinal: Denies: abdominal pain Genitourinary: Denies: dysuria Musculoskeletal: Reports: back pain (Mild discomfort mid back) Skin: Denies: rash Neurological: Denies: weakness Past Medical History Past Medical History: GERD/Reflux, Pneumonia Additional Past Medical History / Comment(s): scoliosis, hospitalized for pneumonia-klebsiella end of Sept., mitral valve regurgitation. COVID 19 History of Any Multi-Drug Resistant Organisms: None Reported Past Surgical History: Adenoidectomy, Tonsillectomy, Tubal Ligation, Uterine Ablation Additional Past Surgical History / Comment(s): oral Past Anesthesia/Blood Transfusion Reactions: No Reported Reaction Additional Past Anesthesia/Blood Transfusion Reaction / Comment(s): no blood transfusions Past Psychological History: Anxiety Smoking Status: Former smoker Past Alcohol Use History: None Reported Past Drug Use History: None Reported - Past Family History Mother Family Medical History: Congestive Heart Failure (CHF), Diabetes Mellitus, Hypertension Father Family Medical History: Cancer, Diabetes Mellitus Additional Family Medical History / Comment(s): KIDNEY CANCER. General Exam Limitations: no limitations General appearance: alert, in no apparent distress Head exam: Present: normocephalic Eye exam: Present: normal appearance Neck exam: Present: normal inspection Respiratory exam: Present: normal lung sounds bilaterally Cardiovascular Exam: Present: tachycardia GI/Abdominal exam: Present: soft. Absent: tenderness Extremities exam: Present: normal inspection. Absent: pedal edema, calf tenderness Back exam: Present: tenderness (Mild tenderness right mid thoracic) Neurological exam: Present: alert Psychiatric exam: Present: normal affect, normal mood Skin exam: Present: normal color Course Vital Signs 12/05/20 12/05/20 12/05/20 15:21 16:23 16:30 Temperature 98.3 F Pulse Rate 112 H 105 H Respiratory 26 H 18 18 Rate Blood Pressure 175/95 133/95 O2 Sat by Pulse 99 99 Oximetry 12/05/20 17:48 Temperature Pulse Rate 93 Respiratory 14 Rate Blood Pressure 136/77 O2 Sat by Pulse 100 Oximetry EKG Findings - EKG Comments: EKG Findings:: No sinus rhythm 91. IL 154. QRS 88. QT 300. QTc 472. Normal axis. Normal QRS. No acute ST elevation. Medical Decision Making - Medical Decision Making Patient reevaluated and is feeling better. Vital signs improved. Patient still has some discomfort however is mild and does not want any medication at this time. Patient updated on results and computed tomography scan. Patient is preferring to be discharged home. Patient would like to restart steroid dose. Patient will be prescribed muscle relaxers. Patient is advised close follow-up. - Lab Data Result diagrams: 12/05/20 16:18 12/05/20 16:18 Lab Results 12/05/20 12/05/20 12/05/20 Range/Units 16:18 16:18 16:18 WBC 5.9 (3.8-10.6) k/uL RBC 4.65 (3.80-5.40) m/uL Hgb 14.1 (11.4-16.0) gm/dL Hct 40.5 (34.0-46.0) % MCV 87.1 (80.0-100.0) fL MCH 30.4 (25.0-35.0) pg MCHC 34.9 (31.0-37.0) g/dL RDW 12.7 (11.5-15.5) % Plt Count 253 (150-450) k/uL MPV 7.3 Neutrophils % 75 % Lymphocytes % 17 % Monocytes % 5 % Eosinophils % 1 % Basophils % 1 % Neutrophils # 4.4 (1.3-7.7) k/uL Lymphocytes # 1.0 (1.0-4.8) k/uL Monocytes # 0.3 (0-1.0) k/uL Eosinophils # 0.1 (0-0.7) k/uL Basophils # 0.0 (0-0.2) k/uL PT 9.9 (9.0-12.0) sec INR 0.9 (<1.2) APTT 21.3 L (22.0-30.0) sec D-Dimer 0.64 H (<0.60) mg/L FEU Sodium 138 (137-145) mmol/L Potassium 3.9 (3.5-5.1) mmol/L Chloride 107 (98-107) mmol/L Carbon Dioxide 25 (22-30) mmol/L Anion Gap 6 mmol/L BUN 15 (7-17) mg/dL Creatinine 0.68 (0.52-1.04) mg/dL Est GFR (CKD-EPI)AfAm >90 (>60 ml/min/1.73 sqM) Est GFR (CKD-EPI)NonAf >90 (>60 ml/min/1.73 sqM) Glucose 170 H (74-99) mg/dL Plasma Lactic Acid Cresencio (0.7-2.0) mmol/L Calcium 9.8 (8.4-10.2) mg/dL Magnesium 2.1 (1.6-2.3) mg/dL Total Bilirubin 0.5 (0.2-1.3) mg/dL AST 77 H (14-36) U/L ALT 297 H (4-34) U/L Alkaline Phosphatase 96 (38-126) U/L Lactate Dehydrogenase 556 (313-618) U/L Troponin I (0.000-0.034) ng/mL C-Reactive Protein <5.0 (<10.0) mg/L Total Protein 7.1 (6.3-8.2) g/dL Albumin 4.5 (3.5-5.0) g/dL 12/05/20 12/05/20 Range/Units 16:18 16:18 WBC (3.8-10.6) k/uL RBC (3.80-5.40) m/uL Hgb (11.4-16.0) gm/dL Hct (34.0-46.0) % MCV (80.0-100.0) fL MCH (25.0-35.0) pg MCHC (31.0-37.0) g/dL RDW (11.5-15.5) % Plt Count (150-450) k/uL MPV Neutrophils % % Lymphocytes % % Monocytes % % Eosinophils % % Basophils % % Neutrophils # (1.3-7.7) k/uL Lymphocytes # (1.0-4.8) k/uL Monocytes # (0-1.0) k/uL Eosinophils # (0-0.7) k/uL Basophils # (0-0.2) k/uL PT (9.0-12.0) sec INR (<1.2) APTT (22.0-30.0) sec D-Dimer (<0.60) mg/L FEU Sodium (137-145) mmol/L Potassium (3.5-5.1) mmol/L Chloride (98-107) mmol/L Carbon Dioxide (22-30) mmol/L Anion Gap mmol/L BUN (7-17) mg/dL Creatinine (0.52-1.04) mg/dL Est GFR (CKD-EPI)AfAm (>60 ml/min/1.73 sqM) Est GFR (CKD-EPI)NonAf (>60 ml/min/1.73 sqM) Glucose (74-99) mg/dL Plasma Lactic Acid Cresencio 2.3 H* (0.7-2.0) mmol/L Calcium (8.4-10.2) mg/dL Magnesium (1.6-2.3) mg/dL Total Bilirubin (0.2-1.3) mg/dL AST (14-36) U/L ALT (4-34) U/L Alkaline Phosphatase (38-126) U/L Lactate Dehydrogenase (313-618) U/L Troponin I <0.012 (0.000-0.034) ng/mL C-Reactive Protein (<10.0) mg/L Total Protein (6.3-8.2) g/dL Albumin (3.5-5.0) g/dL - Radiology Data Radiology results: report reviewed (CT angiogram of the chest shows no evidence of pulmonary embolism. Patchy peripheral reticular infiltrates improved from previous.), image reviewed (Chest x-ray shows no acute process) Disposition Clinical Impression: COVID-19, Dyspnea, Thoracic back pain Disposition: HOME SELF-CARE Condition: Stable Instructions (If sedation given, give patient instructions): Dyspnea (ED), Back Pain (ED) Additional Instructions: Please follow-up with primary care physician in the next day or 2 for recheck. Return for difficulty breathing, uncontrolled fevers, uncontrolled pain, worsening symptoms or other concerns. Prescription has been sent to pharmacy Prescriptions: Dexamethasone [Decadron] 6 mg PO DAILY #4 tablet Cyclobenzaprine [Flexeril] 10 mg PO TID PRN #12 tablet PRN Reason: Pain Is patient prescribed a controlled substance at d/c from ED?: No Referrals: Raheem Kessler MD [Primary Care Provider] - 1-2 days Time of Disposition: 18:14
[2020-12-05] MEDS ORDERED: MORPHINE SULFATE 4 MG/ML SYRINGE IVP STA (16:22)
[2020-12-05 16:28] LABS: Basophils % (A) 1 %; Eosinophils # (A) 0.1 k/uL (0-0.7); Eosinophils % (A) 1 %; HCT 40.5 % (34.0-46.0); HGB 14.1 gm/dL (11.4-16.0); Lymphocytes % (A) 17 %; MCH 30.4 pg (25.0-35.0); MCHC 34.9 g/dL (31.0-37.0); MCV 87.1 fL (80.0-100.0); Mean Platelet Volume 7.3; Monocytes # (A) 0.3 k/uL (0-1.0); Monocytes % (A) 5 %; Neutrophils # (A) 4.4 k/uL (1.3-7.7); Neutrophils % (A) 75 %; Platelet Count 253 k/uL (150-450); RBC 4.65 m/uL (3.80-5.40); RDW 12.7 % (11.5-15.5); WBC 5.9 k/uL (3.8-10.6)
[2020-12-05 16:40] LABS: ALT 297 U/L (4-34); AST 77 U/L (14-36); African American GFR (CKD) >90 (>60 ml/min/1.73 sqM); Albumin 4.5 g/dL (3.5-5.0); Alkaline Phosphatase 96 U/L (38-126); Anion Gap 6 mmol/L; Blood Urea Nitrogen 15 mg/dL (7-17); C Reactive Protein <5.0 mg/L (<10.0); Calcium 9.8 mg/dL (8.4-10.2); Carbon Dioxide 25 mmol/L (22-30); Chloride 107 mmol/L (98-107); Glucose 170 mg/dL (74-99); LDH 556 U/L (313-618); Magnesium 2.1 mg/dL (1.6-2.3); Non-African American GFR(CKD) >90 (>60 ml/min/1.73 sqM); Potassium 3.9 mmol/L (3.5-5.1); Sodium 138 mmol/L (137-145); Total Bilirubin 0.5 mg/dL (0.2-1.3); Total Protein 7.1 g/dL (6.3-8.2)
[2020-12-05 16:53] LABS: INR 0.9 (<1.2); Partial Thromboplastin Time 21.3 sec (22.0-30.0); Prothrombin Time 9.9 sec (9.0-12.0)
[2020-12-05 16:56] LABS: D-Dimer 0.64 mg/L FEU (<0.60)
--- NOTE | 2020-12-05 17:01 | XR ---
EXAMINATION TYPE: XR chest 1V portable DATE OF EXAM: 12/05/2020 COMPARISON: 11/22/2020 HISTORY: Pneumonia. Short of breath. TECHNIQUE: FINDINGS: Heart and mediastinum are normal. Lungs are clear. Diaphragm is normal. Bony thorax is inta ct. There are chest leads. There is no pleural effusion. IMPRESSION: Normal chest. No change.
--- NOTE | 2020-12-05 17:35 | CT ---
EXAMINATION TYPE: CT angio chest DATE OF EXAM: 12/05/2020 COMPARISON: 11/14/2020 HISTORY: dyspnea CT DLP: 315.4 mGycm Automated exposure control for dose reduction was used. CONTRAST: Performed with IV Contrast, patient injected with 100 mL of Isovue 370. There are 3-D post processed images. There is some patchy peripheral pulmonary interstitial and airspace infiltrates. There is no suspicio us pulmonary mass. There is no pleural effusion. Heart size is normal. There is no pericardial effusi on. There is no mediastinal adenopathy. There is normal contrast opacification of the thoracic aorta. The re is no aneurysm or dissection. There is normal contrast opacification of the pulmonary arteries. Th ere are no filling defects. The bony thorax is intact. There is no compression fracture. IMPRESSION: No evidence of pulmonary embolism. Patchy bilateral peripheral pulmonary reticular nodular infiltrate s also present on old CT scan and show a changing pattern. There is areas of improvement in the pulmo nary infiltrates compared to old exam.
[2020-12-05] MEDS ORDERED: DEXAMETHASONE SOD PHOSPHATE 10 MG/ML 1 ML VIAL IV STA (18:11)
[2020-12-05] MEDS ORDERED: ACET/COD 300 MG/30 MG STARTER PACK 6 TAB BTL PO STA (18:11)
[2020-12-05] MEDS ORDERED: CYCLOBENZAPRINE 10MG STARTER 3 TAB BTL PO STA (18:11)
[2020-12-05 19:01] VITALS: BP 136/76; PULSE 92; RESP 18
[2020-12-06 01:19] LABS: Ferritin 263.9 ng/mL (10.0-291.0)
== END 2020-12-05 18:59 | disposition home or self-care (01) ==
LOC: EC 15:20
DX: U07.1 COVID-19 (principal); M54.6 Pain in thoracic spine; Z79.82 Long term (current) use of aspirin; Z91.010 Allergy to peanuts; Z88.2 Allergy status to sulfonamides; Z88.3 Allergy status to other anti-infective agents; Z87.891 Personal history of nicotine dependence
CPT/HCPCS: 36415; 94640; 93005; 85379; 80053; 82728; 83605; 83615; 83735; 84484; 85025; 85610; 85730; 86140; 87040; 84145; 71045; 71275; 99285; 96374; 96375; 96361 ×2; J2270; J1100; Q9967

== ENCOUNTER 2021-03-20 10:52 | Emergency (ER) | payer MEDICAID ==
--- NOTE | 2021-03-20 11:02 | ED ---
Chest Pain HPI <Rosie Sales - Last Filed: 03/20/21 14:19> <Corbin Goodwin - Last Filed: 03/20/21 15:49> - General Stated Complaint: chest pain Time Seen by Provider: 03/20/21 11:00 - History of Present Illness Initial Comments: A very pleasant 50yo female with hx of former smoker, presenting today for chest discomfort. She states that she had chest pain she states she thought was musculoskeletal as she had done a lot of pushing and heavy lifting. She states it did not occur while mowing the lawn itself. Patient denies it being upon exertion. Patient states at times it hurts when she flexes the chest or takes a deep breath. She denies hemoptysis leg swelling Pain history of DVT or pulmonary embolism. Patient states that yesterday while leaving work around 7 PM she had some discomfort in her chest. Patient described as a pressure like pulling pain in the center of the chest. She denied other associated symptoms. Denies dyspnea. Pt denies additional complaints. Upon arrival patient appears well nontoxic, slightly worried/anxious. (Rosie Sales) - Related Data Home Medications Medication Instructions Recorded Confirmed Aspirin EC [Ecotrin Low Dose] 81 mg PO DAILY 05/24/18 03/20/21 [place]-3 Fatty Acids/Fish Oil [Fish 1 cap PO DAILY 05/24/18 03/20/21 Oil 1,000 mg Softgel] Albuterol Sulfate [Albuterol 2 puff PO RT-Q6H PRN 11/14/20 03/20/21 Sulfate Hfa] Multivit-Min/Iron/Folic/Lutein 1 tab PO DAILY 11/22/20 03/20/21 [Centrum Silver Women Tablet] Acetaminophen [Tylenol] 500 - 1,000 mg PO TID PRN 12/05/20 03/20/21 Ibuprofen [Motrin Ib] 200 - 800 mg PO Q8H PRN 12/05/20 03/20/21 Previous Rx's Medication Instructions Recorded Cyclobenzaprine [Flexeril] 10 mg PO TID PRN #12 tablet 12/05/20 Allergies Allergy/AdvReac Type Severity Reaction Status Date / Time oseltamivir phosphate Allergy Rash/Hives Verified 03/20/21 13:49 [From Tamiflu] peanut Allergy Rash/Hives Verified 03/20/21 13:49 Sulfa (Sulfonamide Allergy Rash/Hives Verified 03/20/21 13:49 Antibiotics) Review of Systems ROS Other: All systems not noted in ROS Statement are negative. <Rosie Sales - Last Filed: 03/20/21 14:19> ROS Other: All systems not noted in ROS Statement are negative. <Corbin Goodwin - Last Filed: 03/20/21 15:49> ROS Statement: Those systems with pertinent positive or pertinent negative responses have been documented in the HPI. EKG Findings - EKG Comments: EKG Findings:: Ventricular rate 105 bpm, OR interval 130 ms, QRS duration 84 ms, QT/QTC 326/4:30. This is sinus tachycardia no ST elevation or depression is appreciated <Rosie Sales - Last Filed: 03/20/21 14:19> Past Medical History Past Medical History: GERD/Reflux, Pneumonia Additional Past Medical History / Comment(s): scoliosis, hospitalized for pneumonia-klebsiella end of Jul., mitral valve regurgitation. COVID 19 History of Any Multi-Drug Resistant Organisms: None Reported Past Surgical History: Adenoidectomy, Tonsillectomy, Tubal Ligation, Uterine Ablation Additional Past Surgical History / Comment(s): oral Past Anesthesia/Blood Transfusion Reactions: No Reported Reaction Additional Past Anesthesia/Blood Transfusion Reaction / Comment(s): no blood transfusions Past Psychological History: Anxiety Smoking Status: Former smoker Past Alcohol Use History: None Reported Past Drug Use History: None Reported - Past Family History Mother Family Medical History: Congestive Heart Failure (CHF), Diabetes Mellitus, Hypertension Father Family Medical History: Cancer, Diabetes Mellitus Additional Family Medical History / Comment(s): KIDNEY CANCER. <Rosie Sales - Last Filed: 03/20/21 14:19> General Exam <Rosie Sales - Last Filed: 03/20/21 14:19> - General Exam Comments Initial Comments: General: The patient is awake and alert, in no distress, and does not appear acutely ill. Eye: +3 mm pupils are equal, round and reactive to light, extra-ocular movements are intact. No nystagmus. There is normal conjunctiva bilaterally. No signs of icterus. Neck: The neck is supple, there is no tenderness or JVD. Cardiovascular: There is a regular rate and rhythm. No murmur, rub or gallop is appreciated. Respiratory: Lungs are clear to auscultation, respirations are non-labored, breath sounds are equal. No wheezes, stridor, rales, or rhonchi. Gastrointestinal: Soft, non-distended, non-tender abdomen without masses or organomegaly noted. There is no rebound or guarding present. Musculoskeletal: Normal ROM, no tenderness. Strength 5/5. Sensation intact. Radial and DP pulses equal bilaterally 2+. Neurological: A&O x 3. CN II-XII intact grossly, There are no obvious motor or sensory deficits. Coordination appears grossly intact. Speech is normal. Skin: Skin is warm and dry and no rashes or lesions are noted. No LE edema or calf pain. Psychiatric: Cooperative, appropriate mood & affect, normal judgment. 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 Initial troponin (- ). D-dimer 0.51 improved from previous visit,<0.60 and agre corrected <0.52. Patient appears well nontoxic in no distress. CXR clear. Patient 2nd troponin pending. (Rosie Sales) Disposition Is patient prescribed a controlled substance at d/c from ED?: No Time of Disposition: 14:20 <Rosie Sales - Last Filed: 03/20/21 14:19> <Corbin Goodwin - Last Filed: 03/20/21 15:49> Clinical Impression: Chest discomfort Disposition: HOME SELF-CARE Condition: Good Instructions (If sedation given, give patient instructions): Chest Pain (ED) Additional Instructions: Please use medication as discussed. Please follow-up with family doctor in the next 2 days, recommend outpatient stress testing. Please return to emergency room if the symptoms increase or worsen or for any other concerns. Referrals: Raheem Kessler MD [Primary Care Provider] - 1-2 days
[2021-03-20 11:11] VITALS: RESP 18; TEMP 98.3
--- NOTE | 2021-03-20 11:52 | XR ---
EXAMINATION TYPE: XR chest 2V DATE OF EXAM: 03/20/2021 COMPARISON: 12/05/2020 HISTORY: Chest pain TECHNIQUE: Frontal and lateral views of the chest are obtained. FINDINGS: There is no focal air space opacity. No evidence for pneumothorax. No pleural effusion. The cardiac silhouette size is within normal limits. The osseous structures are grossly intact. IMPRESSION: 1. No acute cardiopulmonary process.
[2021-03-20 12:14] LABS: Basophils % (A) 1 %; Eosinophils # (A) 0.2 k/uL (0-0.7); Eosinophils % (A) 2 %; HGB 15.8 gm/dL (11.4-16.0); Lymphocytes # (A) 1.4 k/uL (1.0-4.8); Lymphocytes % (A) 22 %; MCH 28.9 pg (25.0-35.0); MCHC 33.5 g/dL (31.0-37.0); MCV 86.2 fL (80.0-100.0); Mean Platelet Volume 7.1; Monocytes # (A) 0.4 k/uL (0-1.0); Monocytes % (A) 5 %; Neutrophils # (A) 4.3 k/uL (1.3-7.7); Neutrophils % (A) 68 %; Platelet Count 344 k/uL (150-450); RBC 5.46 m/uL (3.80-5.40); RDW 13.1 % (11.5-15.5); WBC 6.4 k/uL (3.8-10.6)
[2021-03-20 12:22] LABS: ALT 54 U/L (4-34); AST 41 U/L (14-36); African American GFR (CKD) >90 (>60 ml/min/1.73 sqM); Albumin 4.6 g/dL (3.5-5.0); Alkaline Phosphatase 81 U/L (38-126); Anion Gap 11 mmol/L; Blood Urea Nitrogen 17 mg/dL (7-17); Calcium 10.5 mg/dL (8.4-10.2); Carbon Dioxide 25 mmol/L (22-30); Chloride 103 mmol/L (98-107); Glucose 164 mg/dL (74-99); Magnesium 1.9 mg/dL (1.6-2.3); Non-African American GFR(CKD) >90 (>60 ml/min/1.73 sqM); Potassium 4.2 mmol/L (3.5-5.1); Sodium 139 mmol/L (137-145); Total Bilirubin 0.5 mg/dL (0.2-1.3); Total Protein 7.1 g/dL (6.3-8.2)
[2021-03-20 12:28] LABS: D-Dimer 0.51 mg/L FEU (<0.60); INR 0.9 (<1.2); Partial Thromboplastin Time 22.8 sec (22.0-30.0); Prothrombin Time 10.1 sec (9.0-12.0)
[2021-03-20 15:59] VITALS: BP 134/85; PULSE 98
== END 2021-03-20 15:59 | disposition home or self-care (01) ==
LOC: EC 10:52
DX: R07.9 Chest pain, unspecified (principal); Z98.51 Tubal ligation status; Z87.891 Personal history of nicotine dependence
CPT/HCPCS: 36415; 71046; 80053; 83735; 84484; 85025; 85379; 85610; 85730; 93005; 99285

== ENCOUNTER → 2021-06-09 | Outpatient (CLI) | payer MEDICAID ==
[2021-06-09 13:37] LABS: Basophils # (A) 0.1 k/uL (0-0.2); Basophils % (A) 1 %; Eosinophils # (A) 0.1 k/uL (0-0.7); Eosinophils % (A) 2 %; HCT 44.2 % (34.0-46.0); HGB 15.4 gm/dL (11.4-16.0); Lymphocytes # (A) 1.5 k/uL (1.0-4.8); Lymphocytes % (A) 24 %; MCH 29.8 pg (25.0-35.0); MCHC 34.9 g/dL (31.0-37.0); MCV 85.3 fL (80.0-100.0); Mean Platelet Volume 6.8; Monocytes # (A) 0.3 k/uL (0-1.0); Monocytes % (A) 4 %; Neutrophils # (A) 4.1 k/uL (1.3-7.7); Neutrophils % (A) 67 %; Platelet Count 346 k/uL (150-450); RBC 5.18 m/uL (3.80-5.40)
[2021-06-09 14:12] LABS: Creatine Kinase MB 0.5 ng/mL (0.0-2.4); Troponin I <0.012 ng/mL (0.000-0.034)
[2021-06-09 18:29] LABS: African American GFR (CKD) 115.5 (60.0-200.0); Albumin 4.9 g/dL (3.80-4.90); Albumin/Globulin Ratio 2.33 (1.60-3.17); Anion Gap 6.6 mmol/L (4.00-12.00); BUN/Creat Ratio 24.29 Ratio (12.00-20.00); Calcium 10.3 mg/dL (8.7-10.3); Carbon Dioxide 29.4 mmol/L (21.6-31.8); Globulin 2.1 g/dL (1.6-3.3); Non-African American GFR(CKD) 99.6 (60.0-200.0); Potassium 4.1 mmol/L (3.5-5.5); Total Bilirubin 0.5 mg/dL (0.2-1.2)
== END | disposition home or self-care (01) ==
LOC: LABMAIN 13:09
PROVIDERS: ATTEND Nurse Practitioner Adult Health
DX: R07.9 Chest pain, unspecified (principal)
CPT/HCPCS: 36415; 80053; 82553; 84484; 85025

== ENCOUNTER → 2021-06-26 | Outpatient (CLI) | payer MEDICAID ==
--- NOTE | 2021-06-28 09:33 | MM ---
Reason for exam: screening (asymptomatic). Last mammogram was performed 3 years and 6 months ago. History: Took hormonal contraceptives for 3 months beginning at age 28. Physical Findings: A clinical breast exam by your physician is recommended on an annual basis and results should be correlated with mammographic findings. MG 3D Screening Mammo W/Cad Bilateral CC and MLO view(s) were taken. XCCL view(s) were taken of the right breast. Prior study comparison: December 14, 2017, bilateral MG 3d screening mammo w/cad. November 07, 2016, bilateral MG 3d screening mammo w/cad. The breast tissue is heterogeneously dense. This may lower the sensitivity of mammography. No significant changes when compared with prior studies. ASSESSMENT: Benign, BI-RAD 2 RECOMMENDATION: Routine screening mammogram of both breasts in 1 year.
== END | disposition home or self-care (01) ==
LOC: RADMAMWWP 07:10
PROVIDERS: ATTEND Family Medicine
DX: Z12.31 Encounter for screening mammogram for malignant neoplasm of breast (principal); Z79.3 Long term (current) use of hormonal contraceptives
CPT/HCPCS: 77063; 77067

== ENCOUNTER → 2021-07-30 | Outpatient (CLI) | payer MEDICAID ==
--- NOTE | 2021-07-30 13:53 | CT ---
EXAMINATION TYPE: CT chest wo con DATE OF EXAM: 07/30/2021 COMPARISON: None HISTORY: Shortness of breath, fibrosis High-resolution noncontrast CT of the chest was performed with the patient in the prone and supine po sitions. Lung and mediastinal window settings are submitted. The lungs appear to be well-aerated. I do not see evidence for fibrotic change. There is no eviden ce for bronchiectasis, groundglass infiltrate, nodule or mass. No pleural effusion is identified. I do not see evidence for hilar or mediastinal mass or adenopathy. IMPRESSION: No significant abnormality is seen. Correlate clinically.
== END | disposition home or self-care (01) ==
LOC: RADCTMAIN 13:07
PROVIDERS: ATTEND Internal Medicine Critical Care Medicine
DX: R06.02 Shortness of breath (principal); J84.10 Pulmonary fibrosis, unspecified
CPT/HCPCS: 71250

== ENCOUNTER → 2021-08-14 | Outpatient (CLI) | payer MEDICAID ==
--- NOTE | 2021-08-14 08:04 | US ---
EXAMINATION TYPE: US thyroid st tissue head/neck DATE OF EXAM: 08/14/2021 COMPARISON: US dated 06/30/2018, and 02/02/2019 CLINICAL HISTORY: E04.1 Nontoxic single thyroid nodule. GLAND SIZE: Right Lobe: 4.2 x 2.2 x 1.4 cm Overall Parenchyma: homogenous Left Lobe: 4.0 x 1.4 x 1.3 cm Overall Parenchyma: homogeneous Isthmus Thickness: 0.3 cm NODULES RIGHT: # of nodules measured on right: 1 1. 0.7 X 0.5 x 0.6 cm, lower mid, cystic or almost completely cystic, nodule, which is wider than t all, with smooth margins, without echogenic foci. Prior size: 0.6 x 0.5 x 0.7 cm LEFT: # of nodules measured on left: 1 1. 1.2 X 1.2 x 0.9 cm, lower mid, solid or almost completely solid, isoechoic nodule, which is tall er than wide, with smooth margins, without echogenic foci. TR 4 Prior size: 1.1 x 0.9 x 0.9 cm ISTHMUS: # of nodules measured in the isthmus: 0 Bilateral neck scanned, no evidence of lymphadenopathy. IMPRESSION: 1. Moderately suspicious nodule left lobe thyroid, slightly enlarged from prior. Follow-up in one aniketa r is recommended. 2017 ACR TI-RADS LEVEL: TR-RADS 4 - Moderately Suspicious: Follow if > 1 cm, FNA if > 1.5 cm *Highest TI-RADS level nodule reported
== END | disposition home or self-care (01) ==
LOC: RADUSWWP 07:00
PROVIDERS: ATTEND Family Medicine
DX: E04.2 Nontoxic multinodular goiter (principal)
CPT/HCPCS: 76536

== ENCOUNTER 2021-10-07 16:22 | Emergency (ER) | payer MEDICAID ==
[2021-10-07 16:41] VITALS: RESP 20; TEMP 98.9
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
[2021-10-07] MEDS ORDERED: KETOROLAC 15 MG/ML 1 ML VIAL IM STA (18:11)
--- NOTE | 2021-10-07 19:13 | XR ---
EXAMINATION TYPE: XR chest 2V DATE OF EXAM: 10/07/2021 COMPARISON: 03/20/2021 HISTORY: Trauma TECHNIQUE: 2 views FINDINGS: Heart and mediastinum are normal. Lungs are clear. Diaphragm is normal. Bony thorax appears normal. IMPRESSION: Normal chest. No change.
[2021-10-07 19:30] VITALS: BP 135/84; PULSE 82
== END 2021-10-07 19:44 | disposition home or self-care (01) ==
LOC: EC 16:22
DX: S16.1XXA Strain of muscle, fascia and tendon at neck level, initial encounter (principal); K21.9 Gastro-esophageal reflux disease without esophagitis; F41.9 Anxiety disorder, unspecified; Z79.82 Long term (current) use of aspirin; Z88.2 Allergy status to sulfonamides; Z86.16 Personal history of COVID-19; Z98.51 Tubal ligation status; Z90.89 Acquired absence of other organs; Z87.891 Personal history of nicotine dependence; V43.52XA Car driver injured in collision with other type car in traffic accident, initial encounter; Y92.410 Unspecified street and highway as the place of occurrence of the external cause
CPT/HCPCS: 99284; 96372; 71046; 72125; 70450; J1885

== ENCOUNTER → 2021-11-15 | Outpatient (CLI) | payer MEDICAID, OTHER | END | disposition home or self-care (01) | LOC: LABWHC1 09:31 | PROVIDERS: ATTEND Emergency Medicine | DX: Z20.822 Contact with and (suspected) exposure to COVID-19 (principal) | CPT/HCPCS: 87635 ==

== ENCOUNTER → 2021-11-16 | Outpatient (CLI) | payer MEDICAID, OTHER | END | disposition home or self-care (01) | LOC: LABWHC1 09:06 | PROVIDERS: ATTEND Emergency Medicine | DX: Z20.822 Contact with and (suspected) exposure to COVID-19 (principal) | CPT/HCPCS: 87635 ==

== ENCOUNTER 2021-12-28 08:35 | Emergency (ER) | payer MEDICAID, OTHER ==
[2021-12-28 08:42] VITALS: BP 165/86; PULSE 82; RESP 18; TEMP 97.1
--- NOTE | 2021-12-28 09:14 | XR ---
Chest and bilateral RIBS HISTORY: Chest pain COMPARISON: Chest dated 10/07/2021. TECHNIQUE: Single PA view the chest is obtained along with 8 views of the ribs. FINDINGS: The lungs are clear consolidative, interstitial or masslike opacity. There is no pleural effusion, pleural thickening or pneumothorax. The heart, pulmonary vasculature, mediastinum and hilum appear normal. The ribs in the osseous structures of the thorax are intact without fracture or focal intraosseous ab normality. IMPRESSION: No significant abnormality seen of the chest or ribs..
[2021-12-28] MEDS ORDERED: KETOROLAC 15 MG/ML 1 ML VIAL IM STA (09:17)
--- NOTE | 2021-12-28 09:30 | ED ---
General Adult HPI - General Chief complaint: Fall Stated complaint: slip & fall, back pain Time Seen by Provider: 12/28/21 08:44 Source: patient, RN notes reviewed Mode of arrival: ambulatory Limitations: no limitations - History of Present Illness Initial comments: 51-year-old female presents emergency Department chief of fall. Patient states she was walking after house slipped on some ice fell onto her right side of her ribs. She complains of right and left-sided rib pain. Patient states that it hurts to take a deep breath. No head injury no loss conscious. She states she is very sore, and noticed some bruising. - Related Data Home Medications Medication Instructions Recorded Confirmed Aspirin EC [Ecotrin Low Dose] 81 mg PO DAILY 05/24/18 03/20/21 [place]-3 Fatty Acids/Fish Oil [Fish 1 cap PO DAILY 05/24/18 03/20/21 Oil 1,000 mg Softgel] Albuterol Sulfate [Albuterol 2 puff PO RT-Q6H PRN 11/14/20 03/20/21 Sulfate Hfa] Multivit-Min/Iron/Folic/Lutein 1 tab PO DAILY 11/22/20 03/20/21 [Centrum Silver Women Tablet] Acetaminophen [Tylenol] 500 - 1,000 mg PO TID PRN 12/05/20 03/20/21 Ibuprofen [Motrin Ib] 200 - 800 mg PO Q8H PRN 12/05/20 03/20/21 Previous Rx's Medication Instructions Recorded Cyclobenzaprine [Flexeril] 10 mg PO TID PRN #12 tablet 12/05/20 Ketorolac [Toradol] 10 mg PO Q8HR #15 tab 12/28/21 Allergies Allergy/AdvReac Type Severity Reaction Status Date / Time oseltamivir phosphate Allergy Rash/Hives Verified 12/28/21 08:42 [From Tamiflu] peanut Allergy Rash/Hives Verified 12/28/21 08:42 Sulfa (Sulfonamide Allergy Rash/Hives Verified 12/28/21 08:42 Antibiotics) Review of Systems ROS Statement: Those systems with pertinent positive or pertinent negative responses have been documented in the HPI. ROS Other: All systems not noted in ROS Statement are negative. Past Medical History Past Medical History: Diabetes Mellitus, GERD/Reflux, Pneumonia Additional Past Medical History / Comment(s): scoliosis, hospitalized for pneumonia-klebsiella end of Sept., mitral valve regurgitation. COVID 19 History of Any Multi-Drug Resistant Organisms: None Reported Past Surgical History: Adenoidectomy, Tonsillectomy, Tubal Ligation, Uterine Ablation Additional Past Surgical History / Comment(s): oral Past Anesthesia/Blood Transfusion Reactions: No Reported Reaction Additional Past Anesthesia/Blood Transfusion Reaction / Comment(s): no blood transfusions Past Psychological History: Anxiety Smoking Status: Former smoker Past Alcohol Use History: Rare Past Drug Use History: None Reported - Past Family History Mother Family Medical History: Congestive Heart Failure (CHF), Diabetes Mellitus, Hypertension Father Family Medical History: Cancer, Diabetes Mellitus Additional Family Medical History / Comment(s): KIDNEY CANCER. General Exam Limitations: no limitations General appearance: alert, in no apparent distress Head exam: Present: atraumatic, normocephalic, normal inspection Eye exam: Present: normal appearance, PERRL, EOMI. Absent: scleral icterus, conjunctival injection, periorbital swelling ENT exam: Present: normal exam, mucous membranes moist Neck exam: Present: normal inspection, full ROM. Absent: tenderness, meningismu s, lymphadenopathy Respiratory exam: Present: normal lung sounds bilaterally, chest wall tenderness. Absent: respiratory distress, wheezes, rales, rhonchi, stridor Cardiovascular Exam: Present: regular rate, normal rhythm, normal heart sounds. Absent: systolic murmur, diastolic murmur, rubs, gallop, clicks Course Vital Signs 12/28/21 08:38 Temperature 97.1 F L Pulse Rate 82 Respiratory 18 Rate Blood Pressure 165/86 O2 Sat by Pulse 100 Oximetry Medical Decision Making - Medical Decision Making X-ray reviewed with no acute findings. Patient has rib contusion will be discharged in stable condition return parameters were discussed. Disposition Clinical Impression: Fall, Rib contusion Disposition: HOME SELF-CARE Instructions (If sedation given, give patient instructions): Fall Prevention for Older Adults (ED) Additional Instructions: Please return to the Emergency Department if symptoms worsen or any other concerns. Prescriptions: Ketorolac [Toradol] 10 mg PO Q8HR #15 tab Is patient prescribed a controlled substance at d/c from ED?: No Referrals: Raheem Kessler MD [Primary Care Provider] - 1-2 days Time of Disposition: 09:29
== END 2021-12-28 09:49 | disposition home or self-care (01) ==
LOC: EC 08:35
DX: S20.213A Contusion of bilateral front wall of thorax, initial encounter (principal); E11.9 Type 2 diabetes mellitus without complications; K21.9 Gastro-esophageal reflux disease without esophagitis; F41.9 Anxiety disorder, unspecified; Z87.891 Personal history of nicotine dependence; Z79.82 Long term (current) use of aspirin; Z79.1 Long term (current) use of non-steroidal anti-inflammatories (NSAID); Z79.51 Long term (current) use of inhaled steroids; Z88.2 Allergy status to sulfonamides; W00.0XXA Fall on same level due to ice and snow, initial encounter; Y92.009 Unspecified place in unspecified non-institutional (private) residence as the place of occurrence of the external cause; Y93.01 Activity, walking, marching and hiking
CPT/HCPCS: 71111; 99284; 96372; J1885

== ENCOUNTER 2022-03-29 08:29 | Emergency (ER) | payer MEDICAID ==
[2022-03-29 08:35] VITALS: TEMP 98.2
[2022-03-29] MEDS ORDERED: ONDANSETRON 4 MG/2 ML VIAL IVP STA (08:55)
[2022-03-29] MEDS ORDERED: SODIUM CHLORIDE 0.9% 1,000 ML IV STA (08:55)
[2022-03-29] MEDS ORDERED: HYDROmorphone 0.5 MG/0.5 ML SYRINGE IVP STA (09:00)
[2022-03-29] MEDS ORDERED: PANTOPRAZOLE 40 MG/10 ML VIAL IVP STA (09:02)
--- NOTE | 2022-03-29 09:11 | ED ---
General Adult HPI - General Chief complaint: Abdominal Pain Stated complaint: Abd pain Time Seen by Provider: 03/29/22 08:55 Source: patient, RN notes reviewed, old records reviewed Mode of arrival: ambulatory Limitations: no limitations - History of Present Illness Initial comments: This is a pleasant 51-year-old female that presents to the emergency room with complaints of diffuse abdominal pain radiating up to her left shoulder and left anterior chest. Patient states symptoms started after eating sushi last night. She tried to take a shower this morning and developed cold sweats. She is nauseated but no vomiting or diarrhea. No fevers. She did have a normal bowel movement today. She does have a history of diabetes and GERD and is scheduled to have a stress test but denies a cardiac history. She is a former smoker and is currently been abstaining from alcohol for over 200 days. -: days(s) (1) Location: abdomen Radiation: proximal (left upper chest and shoulder) Severity scale (1-10): 5 Quality: sharp Consistency: intermittent Worsens with: movement (palpation) Associated Symptoms: fever/chills (diaphoresis, cold sweats), nausea/vomiting (no vomiting) - Related Data Home Medications Medication Instructions Recorded Confirmed Aspirin EC [Ecotrin Low Dose] 81 mg PO DAILY 05/24/18 03/20/21 [place]-3 Fatty Acids/Fish Oil [Fish 1 cap PO DAILY 05/24/18 03/20/21 Oil 1,000 mg Softgel] Albuterol Sulfate [Albuterol 2 puff PO RT-Q6H PRN 11/14/20 03/20/21 Sulfate Hfa] Multivit-Min/Iron/Folic/Lutein 1 tab PO DAILY 11/22/20 03/20/21 [Centrum Silver Women Tablet] Acetaminophen [Tylenol] 500 - 1,000 mg PO TID PRN 12/05/20 03/20/21 Ibuprofen [Motrin Ib] 200 - 800 mg PO Q8H PRN 12/05/20 03/20/21 Previous Rx's Medication Instructions Recorded Cyclobenzaprine [Flexeril] 10 mg PO TID PRN #12 tablet 12/05/20 Ketorolac [Toradol] 10 mg PO Q8HR #15 tab 12/28/21 Allergies Allergy/AdvReac Type Severity Reaction Status Date / Time oseltamivir phosphate Allergy Rash/Hives Verified 03/29/22 08:30 [From Tamiflu] peanut Allergy Rash/Hives Verified 03/29/22 08:30 Sulfa (Sulfonamide Allergy Rash/Hives Verified 03/29/22 08:30 Antibiotics) Review of Systems ROS Statement: Those systems with pertinent positive or pertinent negative responses have been documented in the HPI. ROS Other: All systems not noted in ROS Statement are negative. Past Medical History Past Medical History: Diabetes Mellitus, GERD/Reflux, Pneumonia Additional Past Medical History / Comment(s): scoliosis, hospitalized for pneumonia-klebsiella end of Jul., mitral valve regurgitation. COVID 19 History of Any Multi-Drug Resistant Organisms: None Reported Past Surgical History: Adenoidectomy, Tonsillectomy, Tubal Ligation, Uterine Ablation Additional Past Surgical History / Comment(s): oral Past Anesthesia/Blood Transfusion Reactions: No Reported Reaction Additional Past Anesthesia/Blood Transfusion Reaction / Comment(s): no blood transfusions Past Psychological History: Anxiety Smoking Status: Former smoker Past Alcohol Use History: Rare Past Drug Use History: None Reported - Past Family History Mother Family Medical History: Congestive Heart Failure (CHF), Diabetes Mellitus, Hypertension Father Family Medical History: Cancer, Diabetes Mellitus Additional Family Medical History / Comment(s): KIDNEY CANCER. General Exam Limitations: no limitations General appearance: alert, in no apparent distress Respiratory exam: Present: normal lung sounds bilaterally. Absent: respiratory distress, accessory muscle use Cardiovascular Exam: Present: regular rate, normal rhythm, normal heart sounds GI/Abdominal exam: Present: soft, tenderness (diffuse), rebound. Absent: distended, guarding, rigid Extremities exam: Present: normal capillary refill. Absent: tenderness, pedal edema, calf tenderness Back exam: Present: full ROM, CVA tenderness (L). Absent: CVA tenderness (R) Neurological exam: Present: alert, oriented X3 Psychiatric exam: Present: normal affect, normal mood Skin exam: Present: warm, dry, normal color. Absent: cyanosis, diaphoretic, petechiae, pallor Course Vital Signs 03/29/22 03/29/22 03/29/22 08:31 10:35 10:59 Temperature 98.2 F Pulse Rate 85 69 77 Respiratory 16 18 18 Rate Blood Pressure 118/64 110/71 109/59 O2 Sat by Pulse 99 98 100 Oximetry EKG Findings - EKG Results: EKG: sinus rhythm (Ventricular rate 77, MD interval 0.135, QRS 0.90, QTC 0.413) Medical Decision Making - Medical Decision Making CT report shows a normal gallbladder, pancreas and adrenal glands. Spleen is normal. There is mild fatty infiltration of the liver. There is no evidence of leukocytosis, electrolytes are unremarkable, lactic acid is 1.2. Urinalysis is clear. There is no suspicious abnormality to account for her abdominal pain at this time. Patient is feeling better and will be discharged home to follow up with primary care doctor return with any new or concerning symptoms. Case discussed with Dr. Green. Vital signs are stable at discharge - Lab Data Result diagrams: 03/29/22 09:24 03/29/22 09:24 Lab Results 03/29/22 03/29/22 03/29/22 Range/Units 09:24 09:24 09:24 WBC 6.1 (3.8-10.6) k/uL RBC 5.16 (3.80-5.40) m/uL Hgb 15.3 (11.4-16.0) gm/dL Hct 45.5 (34.0-46.0) % MCV 88.2 (80.0-100.0) fL MCH 29.6 (25.0-35.0) pg MCHC 33.6 (31.0-37.0) g/dL RDW 13.2 (11.5-15.5) % Plt Count 319 (150-450) k/uL MPV 7.1 Neutrophils % 72 % Lymphocytes % 20 % Monocytes % 4 % Eosinophils % 2 % Basophils % 0 % Neutrophils # 4.4 (1.3-7.7) k/uL Lymphocytes # 1.2 (1.0-4.8) k/uL Monocytes # 0.3 (0-1.0) k/uL Eosinophils # 0.1 (0-0.7) k/uL Basophils # 0.0 (0-0.2) k/uL PT 10.5 (9.0-12.0) sec INR 1.0 (<1.2) APTT 21.7 L (22.0-30.0) sec Sodium (137-145) mmol/L Potassium (3.5-5.1) mmol/L Chloride (98-107) mmol/L Carbon Dioxide (22-30) mmol/L Anion Gap mmol/L BUN (7-17) mg/dL Creatinine (0.52-1.04) mg/dL Est GFR (CKD-EPI)AfAm (>60 ml/min/1.73 sqM) Est GFR (CKD-EPI)NonAf (>60 ml/min/1.73 sqM) Glucose (74-99) mg/dL Plasma Lactic Acid Cresencio (0.7-2.0) mmol/L Calcium (8.4-10.2) mg/dL Total Bilirubin (0.2-1.3) mg/dL AST (14-36) U/L ALT (4-34) U/L Alkaline Phosphatase (38-126) U/L Total Protein (6.3-8.2) g/dL Albumin (3.5-5.0) g/dL Amylase (30-110) U/L Lipase (23-300) U/L Urine Color Light Yellow Urine Appearance Clear (Clear) Urine pH 7.0 (5.0-8.0) Ur Specific Haynes 1.002 (1.001-1.035) Urine Protein Negative (Negative) Urine Glucose (UA) Negative (Negative) Urine Ketones Negative (Negative) Urine Blood Negative (Negative) Urine Nitrite Negative (Negative) Urine Bilirubin Negative (Negative) Urine Urobilinogen <2.0 (<2.0) mg/dL Ur Leukocyte Esterase Negative (Negative) 03/29/22 03/29/22 Range/Units 09:24 09:24 WBC (3.8-10.6) k/uL RBC (3.80-5.40) m/uL Hgb (11.4-16.0) gm/dL Hct (34.0-46.0) % MCV (80.0-100.0) fL MCH (25.0-35.0) pg MCHC (31.0-37.0) g/dL RDW (11.5-15.5) % Plt Count (150-450) k/uL MPV Neutrophils % % Lymphocytes % % Monocytes % % Eosinophils % % Basophils % % Neutrophils # (1.3-7.7) k/uL Lymphocytes # (1.0-4.8) k/uL Monocytes # (0-1.0) k/uL Eosinophils # (0-0.7) k/uL Basophils # (0-0.2) k/uL PT (9.0-12.0) sec INR (<1.2) APTT (22.0-30.0) sec Sodium 141 (137-145) mmol/L Potassium 4.3 (3.5-5.1) mmol/L Chloride 106 (98-107) mmol/L Carbon Dioxide 27 (22-30) mmol/L Anion Gap 8 mmol/L BUN 16 (7-17) mg/dL Creatinine 0.72 (0.52-1.04) mg/dL Est GFR (CKD-EPI)AfAm >90 (>60 ml/min/1.73 sqM) Est GFR (CKD-EPI)NonAf >90 (>60 ml/min/1.73 sqM) Glucose 142 H (74-99) mg/dL Plasma Lactic Acid Cresencio 1.2 (0.7-2.0) mmol/L Calcium 9.7 (8.4-10.2) mg/dL Total Bilirubin 0.6 (0.2-1.3) mg/dL AST 31 (14-36) U/L ALT 43 H (4-34) U/L Alkaline Phosphatase 64 (38-126) U/L Total Protein 7.1 (6.3-8.2) g/dL Albumin 4.5 (3.5-5.0) g/dL Amylase 52 (30-110) U/L Lipase 79 (23-300) U/L Urine Color Urine Appearance (Clear) Urine pH (5.0-8.0) Ur Specific Haynes (1.001-1.035) Urine Protein (Negative) Urine Glucose (UA) (Negative) Urine Ketones (Negative) Urine Blood (Negative) Urine Nitrite (Negative) Urine Bilirubin (Negative) Urine Urobilinogen (<2.0) mg/dL Ur Leukocyte Esterase (Negative) Disposition Clinical Impression: Abdominal pain, Nausea Disposition: HOME SELF-CARE Condition: Good Instructions (If sedation given, give patient instructions): Abdominal Pain (ED) Additional Instructions: Follow-up with the primary care doctor next week. Return to the emergency room with any new or concerning symptoms including increasing bdominal pain, fevers, chest pain, difficulty breathing or persistent nausea and vomiting. Is patient prescribed a controlled substance at d/c from ED?: No Referrals: Raheem Kessler MD [Primary Care Provider] - 1-2 days Time of Disposition: 11:21
[2022-03-29 09:37] LABS: Basophils % (A) 0 %; Eosinophils # (A) 0.1 k/uL (0-0.7); Eosinophils % (A) 2 %; HCT 45.5 % (34.0-46.0); HGB 15.3 gm/dL (11.4-16.0); Lymphocytes # (A) 1.2 k/uL (1.0-4.8); Lymphocytes % (A) 20 %; MCH 29.6 pg (25.0-35.0); MCHC 33.6 g/dL (31.0-37.0); MCV 88.2 fL (80.0-100.0); Mean Platelet Volume 7.1; Monocytes # (A) 0.3 k/uL (0-1.0); Monocytes % (A) 4 %; Neutrophils # (A) 4.4 k/uL (1.3-7.7); Neutrophils % (A) 72 %; Platelet Count 319 k/uL (150-450); RBC 5.16 m/uL (3.80-5.40); RDW 13.2 % (11.5-15.5); WBC 6.1 k/uL (3.8-10.6)
[2022-03-29 09:39] LABS: Appearance,Urine Clear (Clear); Bilirubin,Urine Negative (Negative); Blood,Urine Negative (Negative); Color,Urine Light Yellow; Glucose,Urine (UA) Negative (Negative); Ketones,Urine Negative (Negative); Leukocyte Esterase,Urine Negative (Negative); Nitrite,Urine Negative (Negative); Protein,Urine Negative (Negative); Specific Gravity,Urine 1.002 (1.001-1.035); Urobilinogen,Urine <2.0 mg/dL (<2.0)
[2022-03-29 09:50] LABS: ALT 43 U/L (4-34); AST 31 U/L (14-36); African American GFR (CKD) >90 (>60 ml/min/1.73 sqM); Albumin 4.5 g/dL (3.5-5.0); Alkaline Phosphatase 64 U/L (38-126); Amylase 52 U/L (30-110); Anion Gap 8 mmol/L; Blood Urea Nitrogen 16 mg/dL (7-17); Calcium 9.7 mg/dL (8.4-10.2); Carbon Dioxide 27 mmol/L (22-30); Chloride 106 mmol/L (98-107); Glucose 142 mg/dL (74-99); Lipase 79 U/L (23-300); Non-African American GFR(CKD) >90 (>60 ml/min/1.73 sqM); Potassium 4.3 mmol/L (3.5-5.1); Sodium 141 mmol/L (137-145); Total Bilirubin 0.6 mg/dL (0.2-1.3); Total Protein 7.1 g/dL (6.3-8.2)
[2022-03-29 09:51] LABS: Prothrombin Time 10.5 sec (9.0-12.0)
[2022-03-29 10:11] LABS: Partial Thromboplastin Time 21.7 sec (22.0-30.0)
--- NOTE | 2022-03-29 10:25 | CT ---
EXAMINATION TYPE: CT abdomen pelvis w con DATE OF EXAM: 03/29/2022 COMPARISON: 04/08/2020 INDICATION: Mid abd pain radiating around back DLP: 1021.3 mGycm, Automated exposure control for dose reduction was used. CONTRAST: 100 mL of Isovue 300. Study performed without Oral Contrast TECHNIQUE: Axial images were obtained from above the diaphragm to the pubic rami in the axial plane a t 5 mm thick sections. Reconstructed images are reviewed on the computer in the coronal plane. FINDINGS: Limited CT sections are obtained the lung bases. The lung bases are clear. CT ABDOMEN: Liver: Mild fatty infiltration versus liver. No discrete masses or cysts. Spleen: Normal Pancreas: Normal Adrenal glands: The adrenal glands are normal. Gallbladder: Normal Kidneys: No masses are evident. No hydronephrosis is present. No cysts are present. Punctate calci fication in the posterior lateral right kidney may be present without obstruction. Series 201 image 3 3. Aorta: Normal Inferior vena cava: Normal. CT PELVIS: Very minimal periumbilical hernia containing mesenteric fat is not excluded. This 1.1 cm. No loops of bowel are involved. Loops of bowel within the abdomen and pelvis are normal. The study is without oral contrast limit ing bowel evaluation. Appendix: Not identified. No dilated tubular structure or inflammatory change evident. Urinary bladder: Normal. Genitourinary structures: Uterus is normal. Adnexa are normal. Osseous structures: No suspicious lytic or sclerotic lesions. IMPRESSIONS: 1. No suspicious abnormality to account for abdominal pain.
[2022-03-29] MEDS ORDERED: MAG HYDROX/AL HYDROX/SIMETH 30 ML, HYOSCYAMINE ELIXIR 10 ML, LIDOCAINE VISCOUS 2% 10 ML PO STA ×3 (10:43)
[2022-03-29 10:52] VITALS: RESP 18
[2022-03-29 11:00] VITALS: BP 109/59; PULSE 77
== END 2022-03-29 12:05 | disposition home or self-care (01) ==
LOC: EC 08:29
DX: K76.0 Fatty (change of) liver, not elsewhere classified (principal); E11.9 Type 2 diabetes mellitus without complications; Z87.891 Personal history of nicotine dependence; Z88.2 Allergy status to sulfonamides; Z86.16 Personal history of COVID-19; Z88.8 Allergy status to other drugs, medicaments and biological substances; Z91.010 Allergy to peanuts
CPT/HCPCS: 36415; 93005; 80053; 82150; 83605; 83690; 85025; 85610; 85730; 81003; 74177; 99284; 96374; 96375; 96361; J2405; C9113; J1170; Q9967

== ENCOUNTER → 2022-04-08 | Outpatient (CLI) | payer MEDICAID ==
--- NOTE | 2022-04-08 11:34 | CA ---
Stress Echo Report Judy Nicholson Age: 51 Gender: F : 1970 Exam Date: 04/08/2022 10:19 Exam Location: [facility] Ht (in): 66 Wt (lb): 176 Ordering Physician: Raheem Kessler MD Referring Physician: Checo MANZO Autocutter: Monisha Ramírez RDCS Technologist Procedure CPT: Indication: R00.1 Bradycardia, Atypical cp R07.89 ICD-9 Codes: Rhythm: Patient History: Cardiac Medications: Medications in past 24 hours: Contrast: Stress Results Protocol: Jayden Total dose(mL): Exercise Duration (min:sec): 9:[address] Depression (mm): Angina Score: Ramirez Score: METS: 11.3 Resting HR: 76 Resting BP: 125 / 86 Peak HR: 163 Peak BP: 166 / 73 Max Predicted HR: 167 98 % Max Predicted HR Target HR: 142 Double Product: 10276 Stress Summary: BP Response: Reason for Termination: Cardiac Symptoms: ECG Analysis Resting ECG: Normal sinus rhythm normal axis normal intervals Stress EC mm ST segment depression in inferolateral leads Arrhythmia: Occasional PVCs Echo Analysis Resting Echo: Normal left ventricular size wall motion systolic function Peak Echo Analysis: No exercise induced wall motion abnormality MEASUREMENTS (Male/Female) Normal Values CONCLUSIONS Excellent exercise tolerance Abnormal stress test by EKG criteria Normal echo response to exercise Dr. Rubén Jones MD (Electronically Signed) Final Date: 08 Apr 2022 11:33
== END | disposition home or self-care (01) ==
LOC: RADNMMAIN 09:57
PROVIDERS: ATTEND Family Medicine
DX: R94.39 Abnormal result of other cardiovascular function study (principal); R00.1 Bradycardia, unspecified; R07.89 Other chest pain
CPT/HCPCS: 93351

== ENCOUNTER → 2022-07-11 | Outpatient (CLI) | payer MEDICAID ==
--- NOTE | 2022-07-14 08:47 | MM ---
Reason for Exam: Screening (asymptomatic). Last mammogram was performed 1 year(s) and 1 month(s) ago. Patient History: Menarche at age 10. First Full-Term at age 18. Hormonal Contraceptives for 3 months from age 28 until age 28. Risk Values: Araseli 5 year model risk: 1.0%. NCI Lifetime model risk: 7.7%. Prior Study Comparison: 11/07/2016 Bilateral Screening Mammogram, [facility]. 12/14/2017 Bilateral Screening Mammogram, [facility]. 06/26/2021 Bilateral Screening Mammogram, [facility]. Tissue Density: The breast tissue is heterogeneously dense. This may lower the sensitivity of mammography. Findings: Analyzed By CAD. There is no suspicious group of microcalcifications or new suspicious mass in either breast. Overall Assessment: Negative, BI-RAD 1 Management: Screening Mammogram of both breasts in 1 year. 1. Patient should continue monthly self breast exams. 2. A clinical breast exam by your physician is recommended on an annual basis. 3. This exam should not preclude additional follow-up of suspicious palpable abnormalities. Electronically signed and approved by: Clary Velez M.D. Radiologist
== END | disposition home or self-care (01) ==
LOC: RADMAMWWP 07:29
PROVIDERS: ATTEND Family Medicine
DX: Z12.31 Encounter for screening mammogram for malignant neoplasm of breast (principal)
CPT/HCPCS: 77063; 77067

== ENCOUNTER → 2022-10-27 | Outpatient (CLI) | payer MEDICAID ==
--- NOTE | 2022-10-27 13:52 | US ---
EXAMINATION TYPE: US thyroid st tissue head/neck DATE OF EXAM: 10/27/2022 COMPARISON: 08/14/2021 CLINICAL HISTORY: E04.1 THYROID NODULE. GLAND SIZE: Right Lobe: 4.1 x 1.2 x 1.4 cm Overall Parenchyma: homogenous Left Lobe: 3.9 x 1.3 x 1.3 cm Overall Parenchyma: homogeneous Isthmus Thickness: 0.40 cm NODULES RIGHT: # of nodules measured on right: 2 1. 0.63 X 0.49 x 0.58 cm, lower, cystic or almost completely cystic, hypoechoic nodule, which is wi abhay than tall, with smooth margins, without echogenic foci. Prior size: 0.7 x 0.5 x 0.6 cm 2. 0.35 X 0.31 x 0.31 cm, lower, cystic or almost completely cystic, hypoechoic nodule, which is wi abhay than tall, with smooth margins, without echogenic foci. No prior size LEFT: # of nodules measured on left: 2 1. 1.3 X 1.1 x 0.89 cm, lower, solid or almost completely solid, isoechoic nodule, which is taller than wide, with smooth margins, without echogenic foci. Prior size: 1.2 x 1.2 x 0.9 cm 2. 0.51 X 0.24 x 0.35 cm, mid medial, cystic or almost completely cystic, anechoic nodule, which i s wider than tall, with smooth margins, without echogenic foci. No prior size ISTHMUS: # of nodules measured in the isthmus: 0 Bilateral neck scanned, no evidence of lymphadenopathy. Homogeneous somewhat small size thyroid with small bilateral thyroid nodules redemonstrated. IMPRESSION: As above. No new or enlarging greater than 1.0 cm solid nodules.
== END | disposition home or self-care (01) ==
LOC: RADUSWWP 10:52
PROVIDERS: ATTEND Internal Medicine
DX: E04.2 Nontoxic multinodular goiter (principal)
CPT/HCPCS: 76536

== ENCOUNTER → 2022-11-12 | Outpatient (CLI) | payer MEDICAID ==
[2022-11-12 07:24] LABS: Basophils # (A) 0.1 k/uL (0-0.2); Basophils % (A) 1 %; Eosinophils # (A) 0.1 k/uL (0-0.7); Eosinophils % (A) 2 %; HCT 43.3 % (34.0-46.0); HGB 15.4 gm/dL (11.4-16.0); Lymphocytes # (A) 1.5 k/uL (1.0-4.8); Lymphocytes % (A) 23 %; MCH 30.6 pg (25.0-35.0); MCHC 35.7 g/dL (31.0-37.0); MCV 85.8 fL (80.0-100.0); Mean Platelet Volume 7.9; Monocytes # (A) 0.4 k/uL (0-1.0); Monocytes % (A) 6 %; Neutrophils # (A) 4.4 k/uL (1.3-7.7); Neutrophils % (A) 67 %; Platelet Count 300 k/uL (150-450); RBC 5.04 m/uL (3.80-5.40); RDW 12.4 % (11.5-15.5); WBC 6.5 k/uL (3.8-10.6)
[2022-11-12 07:37] LABS: ALT 48 U/L (4-34); AST 28 U/L (14-36); African American GFR (CKD) >90 (>60 ml/min/1.73 sqM); Albumin 4.5 g/dL (3.5-5.0); Alkaline Phosphatase 67 U/L (38-126); Anion Gap 7 mmol/L; Blood Urea Nitrogen 17 mg/dL (7-17); Calcium 9.4 mg/dL (8.4-10.2); Carbon Dioxide 25 mmol/L (22-30); Chloride 107 mmol/L (98-107); Globulin 2.3 g/dL; Glucose 116 mg/dL (74-99); Non-African American GFR(CKD) >90 (>60 ml/min/1.73 sqM); Potassium 4.3 mmol/L (3.5-5.1); Sodium 139 mmol/L (137-145); Total Bilirubin 0.5 mg/dL (0.2-1.3); Total Protein 6.8 g/dL (6.3-8.2)
[2022-11-12 14:56] LABS: Chol/HDL Ratio 2.84 Ratio; LDL Cholesterol,Calculated 66.2 mg/dL (0.0-131.0)
== END | disposition home or self-care (01) ==
LOC: LABMAIN 06:59
PROVIDERS: ATTEND Internal Medicine Interventional Cardiology
DX: E11.9 Type 2 diabetes mellitus without complications (principal)
CPT/HCPCS: 80053; 80061; 83036; 85025

== ENCOUNTER → 2023-04-26 | Outpatient (CLI) | payer MEDICAID | END | disposition home or self-care (01) | LOC: LABMAIN 11:31 | PROVIDERS: ATTEND Emergency Medicine | DX: U07.1 COVID-19 (principal) | CPT/HCPCS: 87635 ==

== ENCOUNTER 2023-05-08 07:50 | Emergency (ER) | payer MEDICAID ==
--- NOTE | 2023-05-08 08:23 | XR ---
EXAMINATION TYPE: XR chest 2V DATE OF EXAM: 05/08/2023 8:16 AM COMPARISON: Chest radiographs from 04/15/2022 TECHNIQUE: XR chest 2V Frontal and lateral views of the chest. CLINICAL INDICATION:Female, 52 years old with history of cough; FINDINGS: Lungs/Pleura: There is no evidence of pleural effusion, focal consolidation, or pneumothorax. Pulmonary vascularity: Unremarkable. Heart/mediastinum: Cardiomediastinal silhouette is unremarkable. Musculoskeletal: No acute osseous pathology. IMPRESSION: No acute cardiopulmonary disease/process.
[2023-05-08] MEDS ORDERED: ACET/COD 300 MG/30 MG STARTER PACK 6 TAB BTL PO STA (08:58)
--- NOTE | 2023-05-08 08:58 | ED ---
SOB HPI - General Chief Complaint: Shortness of Breath Stated Complaint: SOB Time Seen by Provider: 05/08/23 07:59 Source: patient, RN notes reviewed, old records reviewed Mode of arrival: ambulatory Limitations: no limitations - History of Present Illness Initial Comments: 52-year-old female presents emergency Department chief complaint of cough, congestion shortness of breath. Patient was diagnosed with Covid 19 recently states that she continues to have congestion, lung pain and shortness breath. She states her pulse ox at home was low. Patient denies any chest pain or palpitations she states it feels like it's in her lung. Patient denies any nausea vomiting diarrhea constipation. Patient has mild congestion. Patient recent laboratory studies, patient was placed on a Medrol Dosepak by her PCP. - Related Data Home Medications Medication Instructions Recorded Confirmed Aspirin EC [Ecotrin Low Dose] 81 mg PO DAILY 05/24/18 04/15/22 Albuterol Sulfate [Albuterol 2 puff PO RT-Q6H PRN 11/14/20 04/15/22 Sulfate Hfa] Multivit-Min/Iron/Folic/Lutein 1 tab PO DAILY 11/22/20 04/15/22 [Centrum Silver Women Tablet] Fish Oil/Dha/Epa [Fish Oil 1,200 1 cap PO BID 04/15/22 04/15/22 mg Fish Oil] LORazepam [Ativan] 1 mg PO DAILY PRN 04/15/22 04/15/22 metFORMIN HCL ER [Glucophage XR] 500 mg PO BID 04/15/22 04/15/22 Previous Rx's Medication Instructions Recorded amLODIPine [Norvasc] 2.5 mg PO DAILY 90 Days #90 tab 04/17/22 Albuterol Nebulized [Ventolin 2.5 mg INHALATION Q4H PRN #75 ml 05/08/23 Nebulized] Allergies Allergy/AdvReac Type Severity Reaction Status Date / Time oseltamivir phosphate Allergy Rash/Hives Verified 05/08/23 07:54 [From Tamiflu] peanut Allergy Rash/Hives Verified 05/08/23 07:54 Sulfa (Sulfonamide Allergy Rash/Hives Verified 05/08/23 07:54 Antibiotics) Review of Systems ROS Statement: Those systems with pertinent positive or pertinent negative responses have been documented in the HPI. ROS Other: All systems not noted in ROS Statement are negative. Past Medical History Past Medical History: Diabetes Mellitus, GERD/Reflux, Pneumonia Additional Past Medical History / Comment(s): scoliosis, hospitalized for pneumonia-klebsiella end of Sept., mitral valve regurgitation. COVID 19 History of Any Multi-Drug Resistant Organisms: None Reported Past Surgical History: Adenoidectomy, Tonsillectomy, Tubal Ligation, Uterine Ablation Additional Past Surgical History / Comment(s): oral Past Anesthesia/Blood Transfusion Reactions: No Reported Reaction Additional Past Anesthesia/Blood Transfusion Reaction / Comment(s): no blood transfusions Past Psychological History: Anxiety Smoking Status: Former smoker Past Alcohol Use History: Rare Past Drug Use History: None Reported - Past Family History Mother Family Medical History: Congestive Heart Failure (CHF), Diabetes Mellitus, Hypertension Father Family Medical History: Cancer, Diabetes Mellitus Additional Family Medical History / Comment(s): KIDNEY CANCER. General Exam Limitations: no limitations General appearance: alert, in no apparent distress Head exam: Present: atraumatic, normocephalic, normal inspection Eye exam: Present: normal appearance, PERRL, EOMI. Absent: scleral icterus, conjunctival injection, periorbital swelling ENT exam: Present: normal exam, normal oropharynx, mucous membranes moist Neck exam: Present: normal inspection, full ROM. Absent: tenderness, meningismus, lymphadenopathy Respiratory exam: Present: wheezes (Minimal). Absent: normal lung sounds bilaterally, respiratory distress, rales, rhonchi, stridor Cardiovascular Exam: Present: regular rate, normal rhythm, normal heart sounds. Absent: systolic murmur, diastolic murmur, rubs, gallop, clicks Course Vital Signs 05/08/23 05/08/23 07:51 08:03 Temperature 97.6 F Pulse Rate 79 Respiratory 22 22 Rate Blood Pressure 149/76 O2 Sat by Pulse 100 Oximetry Medical Decision Making - Medical Decision Making Was pt. sent in by a medical professional or institution (, PA, JOINT MACHINE OPERATOR, urgent care, hospital, or group home...) When possible be specific @ -No Did you speak to anyone other than the patient for history (EMS, parent, family, police, friend...)? What history was obtained from this source @ -No Did you review nursing and triage notes (agree or disagree)? Why? @ -I reviewed and agree with nursing and triage notes Were old charts reviewed (outside hosp., previous admission, EMS record, old EKG, old radiological studies, urgent care reports/EKG's, group home records)? Report findings @ -Reviewed laboratory studies from 2 days ago included CBC,CMP Differential Diagnosis (chest pain, altered mental status, abdominal pain women, abdominal pain men, vaginal bleeding, weakness, fever, dyspnea, syncope, headache, dizziness, GI bleed, back pain, seizure, CVA, palpatations, mental health, musculoskeletal)? @ -Pneumonia, chest wall pain, pleurisy, costochondritis EKG interpreted by me (3pts min.). @ -None X-rays interpreted by me (1pt min.). @ -Chest x-ray shows no acute process CT interpreted by me (1pt min.). @ -None done U/S interpreted by me (1pt. min.). @ -None done What testing was considered but not performed or refused? (CT, X-rays, U/S, labs)? Why? @ -None What meds were considered but not given or refused? Why? @ -None Did you discuss the management of the patient with other professionals (professionals i.e. , PA, JOINT MACHINE OPERATOR, lab, RT, psych nurse, social work administrator, automobile relocation engineer, teacher, senior vice president and chief information officer, telehealth case manager)? Give summary @ -No Was smoking cessation discussed for >3mins.? @ -No Was critical care preformed (if so, how long)? @ -No Were there social determinants of health that impacted care today? How? (Homelessness, low income, unemployed, alcoholism, drug addiction, transportation, low edu. Level, literacy, decrease access to med. care, alf, rehab)? @ -No Was there de-escalation of care discussed even if they declined (Discuss DNR or withdrawal of care, Hospice)? DNR status @ -No What co-morbidities impacted this encounter? (DM, HTN, Smoking, COPD, CAD, Can cer, CVA, ARF, Chemo, Hep., AIDS, mental health diagnosis, sleep apnea, morbid obesity)? @ -Smoking history, diabetes Was patient admitted / discharged? Hospital course, mention meds given and route, prescriptions, significant lab abnormalities, going to OR and other pertinent info. @ -Discharged patient's chest x-rays unremarkable vitals are stable. Patient's pain seems because a chest wall pain, pleurisy. Patient is currently on steroids will be discharged in stable condition return parameters were discussed. Undiagnosed new problem with uncertain prognosis? @ -No Drug Therapy requiring intensive monitoring for toxicity (Heparin, Nitro, Insulin, Cardizem)? @ -No Were any procedures done? @ -No Diagnosis/symptom? @ -Chest wall pain, pleurisy Acute, or Chronic, or Acute on Chronic? @ -Acute Uncomplicated (without systemic symptoms) or Complicated (systemic symptoms)? @ -Uncomplicated Side effects of treatment? @ -No Exacerbation, Progression, or Severe Exacerbation? @ -No Poses a threat to life or bodily function? How? (Chest pain, [place], [place], pneumonia, PE, COPD, DKA, ARF, appy, cholecystitis, CVA, Diverticulitis, Homicidal, Suicidal, threat to staff... and all critical care pts) @ -No Disposition Clinical Impression: Chest wall pain Disposition: ADMITTED IP TO THIS HOSP Condition: Stable Instructions (If sedation given, give patient instructions): Pleurisy (ED), Chest Wall Pain (ED) Additional Instructions: Please return to the Emergency Department if symptoms worsen or any other concerns. Prescriptions: Albuterol Nebulized [Ventolin Nebulized] 2.5 mg INHALATION Q4H PRN #75 ml PRN Reason: difficulty in breathing Is patient prescribed a controlled substance at d/c from ED?: No Referrals: Raheem Kessler MD [Primary Care Provider] - 1-2 days Time of Disposition: 08:58
[2023-05-08 09:09] VITALS: BP 147/85; PULSE 77; RESP 20; TEMP 98.1
== END 2023-05-08 09:09 | disposition other institution (70) ==
LOC: EC 07:50
DX: R07.89 Other chest pain (principal); E11.9 Type 2 diabetes mellitus without complications; F41.9 Anxiety disorder, unspecified; Z87.891 Personal history of nicotine dependence; Z79.84 Long term (current) use of oral hypoglycemic drugs; Z79.899 Other long term (current) drug therapy; Z79.82 Long term (current) use of aspirin; Z88.2 Allergy status to sulfonamides; Z91.010 Allergy to peanuts; Z88.8 Allergy status to other drugs, medicaments and biological substances; Z88.1 Allergy status to other antibiotic agents
CPT/HCPCS: 71046; 99285

== ENCOUNTER → 2023-05-27 | Outpatient (CLI) | payer MEDICAID ==
--- NOTE | 2023-05-28 10:16 | CA ---
Transthoracic Echo Report Name: Judy Nicholson Age: 52 Gender: F : 1970 Exam Date: 05/27/2023 11:32 Exam Location: [facility] Ht (in): 66 Wt (lb): 180 Ordering Physician: Joe English MD ([id number]) Attending/Referring Phys: Quality Assurance Coordinator Katelyn Briones [facility] Procedure CPT: Indications: SHORTNESS OF BREATH Cardiac Hx: Technical Quality: Fair Contrast 1: Total Dose (mL): Contrast 2: Total Dose (mL): MEASUREMENTS (Male / Female) Normal Values 2D ECHO LV Diastolic Diameter PLAX 3.8 cm 4.2 - 5.9 / 3.9 - 5.3 cm LV Systolic Diameter PLAX 3.0 cm IVS Diastolic Thickness 0.8 cm 0.6 - 1.0 / 0.6 - 0.9 cm LVPW Diastolic Thickness 0.8 cm 0.6 - 1.0 / 0.6 - 0.9 cm LV Relative Wall Thickness 0.4 Ascending Aorta Diameter 2.9 cm M-MODE Aortic Root Diameter MM 2.7 cm LA Systolic Diameter MM 3.5 cm LA Ao Ratio MM 1.3 AV Cusp Separation MM 1.7 cm DOPPLER AV Peak Velocity 120.6 cm/s AV Peak Gradient 5.8 mmHg AV Mean Velocity 80.1 cm/s AV Mean Gradient 2.9 mmHg AV Velocity Time Integral 20.2 cm LVOT Peak Velocity 86.3 cm/s LVOT Peak Gradient 3.0 mmHg LVOT Velocity Time Integral 16.3 cm Mitral E Point Velocity 61.1 cm/s Mitral A Point Velocity 79.2 cm/s Mitral E to A Ratio 0.8 MV Deceleration Time 240.5 ms LV E' Lateral Velocity 9.6 cm/s Mitral E to LV E' Lateral Ratio 6.4 LV E' Septal Velocity 7.2 cm/s Mitral E to LV E' Septal Ratio 8.5 Right Atrial Pressure 3.0 mmHg FINDINGS Left Ventricle Normal Left ventricular size, wall thickness, systolic function with no obvious regional wall motion abnormalities. Left ventricular ejection fraction is estimated at 55%. Right Ventricle Normal right ventricular size and function. Right Atrium Normal right atrial size. Left Atrium Normal left atrial size. Mitral Valve Structurally normal mitral valve. Trace-mild mitral regurgitation. Aortic Valve Trileaflet aortic valve. No aortic valve stenosis or regurgitation. Tricuspid Valve Structurally normal tricuspid valve. No tricuspid regurgitation. Pulmonic Valve Structurally normal pulmonic valve. No pulmonic regurgitation. Pericardium No pericardial effusion. Aorta Normal size aortic root and proximal ascending aorta. CONCLUSIONS Normal LV size and systolic function. Mild mitral regurgitation. No significant abnormality on the Doppler exam. No pulmonary hypertension. No pericardial effusion Previewed by: Dr. Cassandra Chen MD (Electronically Signed) Final Date: 28 May 2023 10:15
== END | disposition home or self-care (01) ==
LOC: RADECHMAIN 11:20
PROVIDERS: ATTEND Internal Medicine Interventional Cardiology
DX: I34.0 Nonrheumatic mitral (valve) insufficiency (principal); R06.02 Shortness of breath
CPT/HCPCS: 93306

== ENCOUNTER → 2023-11-26 | Outpatient (CLI) | payer MEDICAID ==
--- NOTE | 2023-11-26 15:12 | XR ---
EXAMINATION TYPE: XR Hip 2 views Bilateral and AP pelvis DATE OF EXAM: 11/26/2023 COMPARISON: NONE HISTORY: 53 year-old female M1 6.9, chronic bilateral hip pain FINDINGS: There seems to be some mild diffuse joint space narrowing within the hips. No acute fracture, subluxa tion, or dislocation is seen. SI joints appear symmetric and intact as does the pubic symphysis. IMPRESSION: There appears to be mild early diffuse joint space narrowing in both hips. No acute osseo us abnormality seen.
== END | disposition home or self-care (01) ==
LOC: RADXRMAIN 12:10
PROVIDERS: ATTEND Family Medicine
DX: M16.0 Bilateral primary osteoarthritis of hip (principal)
CPT/HCPCS: 73521

== ENCOUNTER → 2024-08-31 | Outpatient (CLI) | payer MEDICAID ==
--- NOTE | 2024-09-01 13:43 | MM ---
Reason for Exam: Screening (asymptomatic). Last mammogram was performed 1 year(s) and 1 month(s) ago. Patient History: Menarche at age 10. First Full-Term at age 18. Postmenopausal. Patient has history of breast feeding. Hormonal Contraceptives for 3 months from age 28 until age 28. Risk Values: Araseli 5 year model risk: 1.1%. NCI Lifetime model risk: 7.4%. Prior Study Comparison: 06/26/2021 Bilateral Screening Mammogram, [facility]. 07/11/2022 Bilateral MG 3D screening mammo w/cad, [facility]. 08/26/2023 Bilateral MG 3D screening mammo w/cad, [facility]. Tissue Density: There are scattered areas of fibroglandular density. Findings: Analyzed By CAD. Right breast: There is no suspicious group of microcalcifications or new suspicious mass. Left breast: There is no suspicious group of microcalcifications or new suspicious mass. Overall Assessment: Negative, BI-RAD 1 Management: Screening Mammogram of both breasts in [address] [facility] will attempt to contact patient to return for supplemental views and ultrasound if indicated. Patient should continue monthly self-breast exams. A clinical breast exam by your physician is recommended on an annual basis. This exam should not preclude additional follow-up of suspicious palpable abnormalities. Note on Araseli scores and lifetime risk: 1. A Araseli score greater than 3% is considered moderate risk. If this is the case, consider specialist referral to assess eligibility for a risk reducing agent. 2. If overall lifetime risk for the development of breast cancer is 20% or higher, the patient may qualify for future screening with alternating mammogram and breast MRI. [facility], , 09/01/2024 1:41 PM. Electronically signed and approved by: Huan Avila DO
== END | disposition home or self-care (01) ==
LOC: RADMAMWWP 11:17
PROVIDERS: ATTEND Family Medicine
CPT/HCPCS: 77063; 77067

== ENCOUNTER 2024-10-08 10:50 | Emergency (ER) | payer MEDICAID ==
[2024-10-08 10:58] LABS: Glucose,Whole Blood 93 mg/dL (70-110)
--- NOTE | 2024-10-08 11:16 | ED ---
Dizziness HPI - General Chief Complaint: Dizziness Stated Complaint: dizzy and SOB Time Seen by Provider: 10/08/24 11:04 Source: patient, RN notes reviewed Mode of arrival: ambulatory Limitations: no limitations - History of Present Illness Initial Comments: This is a 53-year-old female with history of DM presenting with sudden onset dizziness that started this morning. Patient states dizziness is intermittent and does not change with head movement or causing sensation of room spinning. Patient also endorses associated mild left upper chest pain that radiates to her left shoulder. Patient also mentions some diaphoresis, shortness of breath and palpitations. Patient endorses history of similar symptoms but denies history of heart disease AMI. Patient endorses history of anxiety, which was her first consideration for the current symptoms. 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 Patient denies fever, chills, body aches, abdominal pain, N/V/D. MD Complaint: dizziness Onset/Timin -: hour(s) Timing: sudden onset History of Same: Yes History of Trauma: No Associated Symptoms: chest pain, diaphoresis, shortness of breath - Related Data Home Medications Medication Instructions Recorded Confirmed Aspirin EC [Ecotrin Low Dose] 81 mg PO DAILY 05/24/18 04/15/22 Albuterol Sulfate [Albuterol 2 puff PO RT-Q6H PRN 11/14/20 04/15/22 Sulfate Hfa] Multivit-Min/Iron/Folic/Lutein 1 tab PO DAILY 11/22/20 04/15/22 [Centrum Silver Women Tablet] Fish Oil/Dha/Epa [Fish Oil 1,200 1 cap PO BID 04/15/22 04/15/22 mg Fish Oil] LORazepam [Ativan] 1 mg PO DAILY PRN 04/15/22 04/15/22 metFORMIN HCL ER [Glucophage XR] 500 mg PO BID 04/15/22 04/15/22 Previous Rx's Medication Instructions Recorded amLODIPine [Norvasc] 2.5 mg PO DAILY 90 Days #90 tab 04/17/22 Albuterol Inhaler [Ventolin Hfa 1 - 2 puff INHALATION Q6H PRN #1 05/08/23 Inhaler] each Albuterol Nebulized [Ventolin 2.5 mg INHALATION Q4H PRN #75 ml 05/08/23 Nebulized] Meclizine [Antivert] 25 mg PO TID PRN #20 tab 10/08/24 Allergies Allergy/AdvReac Type Severity Reaction Status Date / Time oseltamivir phosphate Allergy Rash/Hives Verified 10/08/24 10:55 [From Tamiflu] peanut Allergy Rash/Hives Verified 10/08/24 10:55 Sulfa (Sulfonamide Allergy Rash/Hives Verified 10/08/24 10:55 Antibiotics) Review of Systems ROS Statement: Those systems with pertinent positive or pertinent negative responses have been documented in the HPI. ROS Other: All systems not noted in ROS Statement are negative. Past Medical History Past Medical History: Diabetes Mellitus, GERD/Reflux, Pneumonia Additional Past Medical History / Comment(s): scoliosis, hospitalized for pneumonia-klebsiella end of Jul., mitral valve regurgitation. COVID 19 History of Any Multi-Drug Resistant Organisms: None Reported Past Surgical History: Adenoidectomy, Tonsillectomy, Tubal Ligation, Uterine Ablation Additional Past Surgical History / Comment(s): oral Past Anesthesia/Blood Transfusion Reactions: No Reported Reaction Additional Past Anesthesia/Blood Transfusion Reaction / Comment(s): no blood transfusions Past Psychological History: Anxiety Smoking Status: Former smoker Past Alcohol Use History: Rare Past Drug Use History: None Reported - Past Family History Mother Family Medical History: Congestive Heart Failure (CHF), Diabetes Mellitus, Hypertension Father Family Medical History: Cancer, Diabetes Mellitus Additional Family Medical History / Comment(s): KIDNEY CANCER. General Exam Limitations: no limitations General appearance: alert, in no apparent distress Head exam: Present: atraumatic, normocephalic, normal inspection Eye exam: Present: normal appearance, PERRL, EOMI. Absent: scleral icterus, conjunctival injection, nystagmus, periorbital swelling ENT exam: Present: normal exam, mucous membranes moist Neck exam: Present: normal inspection. Absent: tenderness, meningismus, lymphadenopathy Respiratory exam: Present: normal lung sounds bilaterally. Absent: respiratory distress, wheezes, rales, rhonchi, stridor Cardiovascular Exam: Present: regular rate, normal rhythm, normal heart sounds. Absent: systolic murmur, diastolic murmur, rubs, gallop, clicks GI/Abdominal exam: Present: soft, normal bowel sounds. Absent: distended, tenderness, guarding, rebound, rigid Extremities exam: Present: normal inspection, full ROM, normal capillary refill. Absent: tenderness, pedal edema, joint swelling, calf tenderness Back exam: Present: normal inspection Neurological exam: Present: alert, oriented X3, CN II-XII intact Psychiatric exam: Present: normal affect, normal mood Skin exam: Present: warm, dry, intact, normal color. Absent: rash Course Vital Signs 10/08/24 10:51 Temperature 98.3 F Pulse Rate 104 H Respiratory 20 Rate Blood Pressure 141/83 O2 Sat by Pulse 97 Oximetry Medical Decision Making - Medical Decision Making Was pt. sent in by a medical professional or institution (, PA, POLICE AIDE, urgent care, hospital, or half-way...) When possible be specific @ -No Did you speak to anyone other than the patient for history (EMS, parent, family, police, friend...)? What history was obtained from this source @ -No Did you review nursing and triage notes (agree or disagree)? Why? @ -I reviewed and agree with nursing and triage notes Were old charts reviewed (outside hosp., previous admission, EMS record, old EKG, old radiological studies, urgent care reports/EKG's, half-way records)? Report findings @ -No old charts were reviewed Differential Diagnosis (chest pain, altered mental status, abdominal pain women, abdominal pain men, vaginal bleeding, weakness, fever, dyspnea, syncope, headache, dizziness, GI bleed, back pain, seizure, CVA, palpatations, mental he alth, musculoskeletal)? @ -Differential Dizziness: Benign paroxysmal positional Vertigo, Meniere's disease, otitis media, acoustic neuroma, vertebrobasilar insufficiency, cerebellar stroke, encephalitis, hypovolemic, arrhythmia, coronary artery syndrome, anemia, this is not meant to be an all-inclusive list Differential Chest Pain: Stable Angina, Unstable Angina, STEMI, NSTEMI Aortic Dissection, Pneumothorax, Musculoskeletal, Esophageal Spasm GERD, Cholecystitis, Pancreatitis, Zoster, this is not meant to be an all-inclusive list. EKG interpreted by me (3pts min.). @ -Sinus rhythm without ST changes or T wave inversion. Ventricular rate 91 bpm, PABLITO 136 ms, QRS duration 87 ms, QTc 408 ms. X-rays interpreted by me (1pt min.). @ -None done CT interpreted by me (1pt min.). @ -None done U/S interpreted by me (1pt. min.). @ -None done What testing was considered but not performed or refused? (CT, X-rays, U/S, labs)? Why? @ -None What meds were considered but not given or refused? Why? @ -None Did you discuss the management of the patient with other professionals (professionals i.e. , PA, POLICE AIDE, lab, RT, psych nurse, forensic social worker, clinical nursing professor, teacher, corporate banking officer, disability case manager)? Give summary @ -No Was smoking cessation discussed for >3mins.? @ -No Was critical care preformed (if so, how long)? @ -No Were there social determinants of health that impacted care today? How? (Homelessness, low income, unemployed, alcoholism, drug addiction, transportation, low edu. Level, literacy, decrease access to med. care, fpc, rehab)? @ -No Was there de-escalation of care discussed even if they declined (Discuss DNR or withdrawal of care, Hospice)? DNR status @ -No What co-morbidities impacted this encounter? (DM, HTN, Smoking, COPD, CAD, Cancer, CVA, ARF, Chemo, Hep., AIDS, mental health diagnosis, sleep apnea, morbid obesity)? @ -None Was patient admitted / discharged? Hospital course, mention meds given and route, prescriptions, significant lab abnormalities, going to OR and other pertinent info. @ -Discharge. Twelve-lead showed sinus rhythm without ectopy. Lab work including troponin were unremarkable except blood glucose which was 62. Patient notes relief of dizziness following p.o. meclizine. Chewable aspirin p.o. also provided. Dizva-cd-enht blood glucose was 93. Repeat blood glucose performed - 133 after eating. Patient states she feels better after eating. Meclizine p.o. sent to pharmacy. Undiagnosed new problem with uncertain prognosis? @ -No Drug Therapy requiring intensive monitoring for toxicity (Heparin, Nitro, Insulin, Cardizem)? @ -No Were any procedures done? @ -No Diagnosis/symptom? @ -Hyperglycemia, anxiety Acute, or Chronic, or Acute on Chronic? @ -Acute Uncomplicated (without systemic symptoms) or Complicated (systemic symptoms)? @ -Complicated Side effects of treatment? @ -No Exacerbation, Progression, or Severe Exacerbation? @ -No Poses a threat to life or bodily function? How? (Chest pain, [place], [place], pneumonia, PE, COPD, DKA, ARF, appy, cholecystitis, CVA, Diverticulitis, Homicidal, Suicidal, threat to staff... and all critical care pts) @ -No - Lab Data Result diagrams: 10/08/24 11:34 10/08/24 11:34 Lab Results 10/08/24 10/08/24 10/08/24 Range/Units 10:56 11:34 11:34 WBC 6.0 (3.8-10.6) k/uL RBC 5.24 (3.80-5.40) m/uL Hgb 15.4 (11.4-16.0) gm/dL Hct 46.1 H (34.0-46.0) % MCV 88.0 (80.0-100.0) fL MCH 29.3 (25.0-35.0) pg MCHC 33.3 (31.0-37.0) g/dL RDW 12.6 (11.5-15.5) % Plt Count 299 (150-450) k/uL MPV 7.2 Neutrophils % 66 % Lymphocytes % 22 % Monocytes % 8 % Eosinophils % 1 % Basophils % 1 % Neutrophils # 4.0 (1.3-7.7) k/uL Lymphocytes # 1.3 (1.0-4.8) k/uL Monocytes # 0.5 (0-1.0) k/uL Eosinophils # 0.1 (0-0.7) k/uL Basophils # 0.0 (0-0.2) k/uL PT 10.7 (10.0-12.5) sec INR 1.0 (<1.2) APTT 25.0 (22.0-30.0) sec Sodium (137-145) mmol/L Potassium (3.5-5.1) mmol/L Chloride (98-107) mmol/L Carbon Dioxide (22-30) mmol/L Anion Gap mmol/L BUN (7-17) mg/dL Creatinine (0.52-1.04) mg/dL Est GFR (CKD-EPI)AfAm (>60 ml/min/1.73 sqM) Est GFR (CKD-EPI)NonAf (>60 ml/min/1.73 sqM) Glucose (74-99) mg/dL POC Glucose (mg/dL) 93 (70-110) mg/dL POC Glu [employer] ANASTASIA Tavarez Calcium (8.4-10.2) mg/dL Total Bilirubin (0.2-1.3) mg/dL AST (14-36) U/L ALT (4-34) U/L Alkaline Phosphatase (38-126) U/L Troponin I (0.000-0.034) ng/mL NT-Pro-B Natriuret Pep pg/mL Total Protein (6.3-8.2) g/dL Albumin (3.5-5.0) g/dL 10/08/24 10/08/24 10/08/24 Range/Units 11:34 11:34 13:54 WBC (3.8-10.6) k/uL RBC (3.80-5.40) m/uL Hgb (11.4-16.0) gm/dL Hct (34.0-46.0) % MCV (80.0-100.0) fL MCH (25.0-35.0) pg MCHC (31.0-37.0) g/dL RDW (11.5-15.5) % Plt Count (150-450) k/uL MPV Neutrophils % % Lymphocytes % % Monocytes % % Eosinophils % % Basophils % % Neutrophils # (1.3-7.7) k/uL Lymphocytes # (1.0-4.8) k/uL Monocytes # (0-1.0) k/uL Eosinophils # (0-0.7) k/uL Basophils # (0-0.2) k/uL PT (10.0-12.5) sec INR (<1.2) APTT (22.0-30.0) sec Sodium 142 (137-145) mmol/L Potassium 3.8 (3.5-5.1) mmol/L Chloride 103 (98-107) mmol/L Carbon Dioxide 29 (22-30) mmol/L Anion Gap 10 mmol/L BUN 14 (7-17) mg/dL Creatinine 0.73 (0.52-1.04) mg/dL Est GFR (CKD-EPI)AfAm >90 (>60 ml/min/1.73 sqM) Est GFR (CKD-EPI)NonAf >90 (>60 ml/min/1.73 sqM) Glucose 62 L (74-99) mg/dL POC Glucose (mg/dL) 133 H (70-110) mg/dL POC Glu [employer] ANASTASIA Kc Calcium 9.9 (8.4-10.2) mg/dL Total Bilirubin 0.4 (0.2-1.3) mg/dL AST 28 (14-36) U/L ALT 29 (4-34) U/L Alkaline Phosphatase 57 (38-126) U/L Troponin I <0.012 (0.000-0.034) ng/mL NT-Pro-B Natriuret Pep 49 pg/mL Total Protein 7.3 (6.3-8.2) g/dL Albumin 4.9 (3.5-5.0) g/dL Disposition Clinical Impression: Hypoglycemia Disposition: HOME SELF-CARE Condition: Good Instructions (If sedation given, give patient instructions): Dizziness (ED), Hypoglycemia in a Person with Diabetes (ED) Prescriptions: Meclizine [Antivert] 25 mg PO TID PRN #20 tab PRN Reason: Vertigo Is patient prescribed a controlled substance at d/c from ED?: No Referrals: Raheem Kessler MD [Primary Care Provider] - 1-2 days Joe English MD [STAFF PHYSICIAN] - 1-2 days Time of Disposition: 13:56
[2024-10-08] MEDS: MECLIZINE 12.5 MG TAB PO STA (11:20)
[2024-10-08] MEDS: ASPIRIN 81 MG PO STA (11:20)
--- NOTE | 2024-10-08 11:53 | XR ---
EXAMINATION TYPE: XR chest 2V DATE OF EXAM: 10/08/2024 COMPARISON: 05/08/2023 HISTORY: Chest pain and shortness of breath TECHNIQUE: Frontal and lateral views of the chest are obtained. FINDINGS: There is no focal air space opacity, pleural effusion, or pneumothorax seen. The cardiac silhouette size is within normal limits. The osseous structures are intact. IMPRESSION: No acute cardiopulmonary process. [facility], , 10/08/2024 11:51 AM
[2024-10-08 12:43] LABS: Basophils % (A) 1 %; Eosinophils # (A) 0.1 k/uL (0-0.7); Eosinophils % (A) 1 %; HCT 46.1 % (34.0-46.0); HGB 15.4 gm/dL (11.4-16.0); Lymphocytes # (A) 1.3 k/uL (1.0-4.8); Lymphocytes % (A) 22 %; MCH 29.3 pg (25.0-35.0); MCHC 33.3 g/dL (31.0-37.0); Mean Platelet Volume 7.2; Monocytes # (A) 0.5 k/uL (0-1.0); Monocytes % (A) 8 %; Neutrophils % (A) 66 %; Platelet Count 299 k/uL (150-450); RBC 5.24 m/uL (3.80-5.40); RDW 12.6 % (11.5-15.5)
[2024-10-08 12:53] LABS: ALT 29 U/L (4-34); AST 28 U/L (14-36); African American GFR (CKD) >90 (>60 ml/min/1.73 sqM); Albumin 4.9 g/dL (3.5-5.0); Alkaline Phosphatase 57 U/L (38-126); Anion Gap 10 mmol/L; Blood Urea Nitrogen 14 mg/dL (7-17); Calcium 9.9 mg/dL (8.4-10.2); Carbon Dioxide 29 mmol/L (22-30); Chloride 103 mmol/L (98-107); Glucose 62 mg/dL (74-99); Non-African American GFR(CKD) >90 (>60 ml/min/1.73 sqM); Potassium 3.8 mmol/L (3.5-5.1); Sodium 142 mmol/L (137-145); Total Bilirubin 0.4 mg/dL (0.2-1.3); Total Protein 7.3 g/dL (6.3-8.2)
[2024-10-08 12:54] LABS: Prothrombin Time 10.7 sec (10.0-12.5)
[2024-10-08 13:02] LABS: NT-Pro-B-Type Natriuretic Pept 49 pg/mL
[2024-10-08 13:56] LABS: Glucose,Whole Blood 133 mg/dL (70-110)
[2024-10-08 14:05] VITALS: BP 116/70; PULSE 70; RESP 18; TEMP 98.1
== END 2024-10-08 15:20 | disposition home or self-care (01) ==
LOC: EC 10:50
DX: E11.649 Type 2 diabetes mellitus with hypoglycemia without coma (principal); Z88.2 Allergy status to sulfonamides; Z91.010 Allergy to peanuts; Z88.8 Allergy status to other drugs, medicaments and biological substances; Z87.891 Personal history of nicotine dependence
CPT/HCPCS: 36415; 71046; 80053; 83880; 84484; 85025; 85610; 85730; 99284